=== PATIENT | male | born 1940 | race Two or more races ===

== ENCOUNTER 2024-09-03 09:59 | Inpatient (IN) | payer MEDICARE, MEDICAID, SELFPAY ==
[2024-09-03] VITALS (8 sets, daily range): BP systolic 128–144; BP diastolic 68–86; PULSE 102–127; RESP 16–20; TEMP 36.5–37.2; O2SAT 94–97; BMI 19.8; BMI 19.2
--- NOTE | 2024-09-03 10:29 | XR_ITS ---
Examination: Abdomen sonogram, Limited Date and time of exam: September 03, 2024 1039 hours INDICATIONS: Vomiting beginning one week ago, diagnosis lung cancer 2023 Technique: Real-time sinclair scale transabdominal sonographic images of the upper abdomen obtained. Findings: Multiple gallstones Gallbladder wall 0.3 cm Common bile duct 0.6 cm no stones Pancreatic head 1.9 cm Liver 13.5 cm irregular contour no focal liver lesions Normal hepatopedal portal venous flow Patent IVC Infrarenal abdominal aortic aneurysm transverse dimension 3.9 cm sagittal dimension 3.3 cm IMPRESSION: Cholelithiasis, negative for cholecystitis Mild infrarenal abdominal aortic aneurysm
--- NOTE | 2024-09-03 10:30 | PD.EDRME ---
Rapid Medical Screening Exam [facility] Arrival date/time: 09/03/24 09:59 84-year-old male with a history of lung cancer presents to the emergency room with a chief complaint of 7 out of 10 epigastric pain that radiates to the right upper quadrant, nausea, vomiting, 2 episodes of diarrhea yesterday. Patient states his symptoms have been going on for the last 3 weeks but have progressively gotten worse the last 4 days. I have greeted and performed a focused initial assessment of this patient. A comprehensive ED assessment and evaluation of the patient, analysis of all test results, and completion of the medical decision making process will be conducted by additional ED providers. Chief Complaint: Flu Like Symptoms Time Seen by Provider: 09/03/24 10:19 Vital signs: Vital Signs Temperature 97.8 F 09/03/24 10:18 Pulse Rate 127 H 09/03/24 10:18 Respiratory Rate 20 09/03/24 10:18 Blood Pressure 128/68 09/03/24 10:18 Pulse Oximetry (%) 97 09/03/24 10:18 Oxygen Delivery Method Room Air 09/03/24 10:18 Vital signs reviewed by provider: Yes
[2024-09-03 10:41] LABS: Basophils % (Auto) 0 % (0-2.5); Eosinophils # (Auto) 0.1 Thou/mm3 (0.0-0.5); Eosinophils % (Auto) 1 % (0-10); Hematocrit 36.2 % (41.0-53.0); Hemoglobin 11.9 g/dL (13.5-16.0); Immature Granulocytes % (Auto) 1 % (0-0); Immature Granulocytes Auto 0.07 Thou/mm3 (0.00-0.00); Lymphocytes # (Auto) 0.6 Thou/mm3 (1.0-4.8); Lymphocytes % (Auto) 5 % (10-50); Mean Corpuscular HGB Conc 32.9 g/dl (31.0-37.0); Mean Corpuscular Hemoglobin 27.6 pg (25.0-35.0); Mean Corpuscular Volume 84 fL (80-100); Monocytes # (Auto) 0.6 Thou/mm3 (0.0-0.8); Monocytes % (Auto) 5 % (0-12); Neutrophils % (Auto) 89 % (37-80); Nucleated Red Blood Cell % 0 /100 WBC (0); Platelet Count 325 Thou/mm3 (140-440); RDW Standard Deviation 41.9 fL (35.1-43.9); Red Blood Count 4.31 Miln/mm3 (4.50-5.90); White Blood Count 11.3 Thou/mm3 (3.8-10.6)
[2024-09-03] MEDS: MG HYD/AL HYD/SIME (Maalox Reg) SUSP 30 ML UDC PO (11:15)
[2024-09-03 11:20] LABS: Alanine Aminotransferase 7 U/L (10-49); Albumin, Serum 4.1 gm/dL (3.4-4.8); Alkaline Phosphatase 107 U/L (46-116); Anion Gap 9 (7-16); Aspartate Amino Transferase 15 U/L (0-34); BUN/Creatinine Ratio 21 Ratio (12-20); Bilirubin,Total 0.4 mg/dL (0.3-1.2); Blood Urea Nitrogen 19 mg/dL (9-23); Calcium 9.4 mg/dL (8.3-10.6); Calcium (Corrected) 9.4 mg/dL (8.5-10.1); Carbon Dioxide 30.4 mMol/L (20.0-31.0); Chloride 93 mMol/L (98-107); Creatinine (Component) 0.9 mg/dL (0.6-1.3); Estimated Creatinine Clearance 61.4 mL/min (>60); Glucose 133 mg/dL (74-106); Lipase 35 U/L (12-53); Osmolality,Calculated 268 (275-295); Potassium 3.9 mMol/L (3.4-5.1); Sodium 132 mMol/L (136-145); Total Protein 8.1 gm/dL (5.7-8.2); eGFR > 60 See Note
[2024-09-03 11:55] LABS: Collection Type, Urine Clean Catch
[2024-09-03 12:01] LABS: Bilirubin,Urine 1+ (Negative); Blood,Urine Negative (Negative); Color,Urine Yellow (Lt Yel-Yel); Glucose, Urine Negative (Negative); Hyaline Casts,Urine < 1 /hpf (0-1); Ketones,Urine Negative (Negative); Leukocyte Esterase,Urine Negative (Negative); Nitrite,Urine Negative (Negative); Protein,Urine 1+ (Neg - Trace); RBC,Urine 5 /hpf (0-3); Specific Gravity,Urine 1.037 (1.001-1.035); Squamous Epithelial Cell,Urine < 1 /hpf (0-5); WBC,Urine 2 /hpf (0-5)
[2024-09-03 12:04] LABS: Clarity,Urine Hazy (Clear/Hazy)
--- NOTE | 2024-09-03 12:15 | PC.NURSE ---
IN TO ASSESS PT. PT WITH C/O UPPER ABD PAIN, DIARRHEA, AND SPITTING UP A LOT. PER DAUGHTER PT WENT TO CLINIC A FEW WEEKS AGO WAS DX WITH GASTRITIS AND GIVEN ABX. THEN WENT TO F/UP FRIDAY BUT SYMPTOMS ARE NOT IMPROVING. PT WITHOUT FURTHER COMPLAINTS AT THIS TIME, ORDERS RECEIVED AND INITIATED. CALL LIGHT PLACED WITHIN REACH. PLAN OF CARE ONGOING.
--- NOTE | 2024-09-03 12:45 | PD.EDADULT ---
ED General RME/HPI General Chief complaint: Flu Like Symptoms Stated complaint: Loose stools and vomiting Time Seen by Provider: 09/03/24 10:19 Arrival date/time: 09/03/24 09:59 RME / HPI RME / HPI narrative: 09/03/24 09:59 84-year-old male with a history of lung cancer presents to the emergency room with a chief complaint of 7 out of 10 epigastric pain that radiates to the right upper quadrant, nausea, vomiting, 2 episodes of diarrhea yesterday. Patient states his symptoms have been going on for the last 3 weeks but have progressively gotten worse the last 4 days. I have greeted and performed a focused initial assessment of this patient. A comprehensive ED assessment and evaluation of the patient, analysis of all test results, and completion of the medical decision making process will be conducted by additional ED providers. Related Data Previous Rx's ?Medication ?Instructions ?Recorded Hydrocodone/Acetaminophen * (NORCO 1 tab PO Q4H PRN PAIN #20 tabs 10/28/ 5/325 *) Allergies Allergy/AdvReac Type Severity Reaction Status Date / Time No Known Allergies Allergy Verified 09/03/24 10:06 Course Orders Category Date Time Status gall bladder Stat Exams 09/03/24 10:29 Completed CBC Stat Lab 09/03/24 10:33 Completed CMP [Comprehensive Metabolic Panel] Stat Lab 09/03/24 10:33 Completed Lipase Stat Lab 09/03/24 10:33 Completed UA [Urinalysis] Stat Lab 09/03/24 11:40 Completed Urine Culture Stat Lab 09/03/24 11:40 Received mg Hyd/Al Hyd/Dave Susp [Maalox Susp] Med 09/03/24 10:29 Discontinued 30 ml PO X1 ONE Vital Signs Vital signs: Vital Signs Temperature 97.8 F 09/03/24 10:18 Pulse Rate 127 H 09/03/24 10:18 Respiratory Rate 20 09/03/24 10:18 Blood Pressure 128/68 09/03/24 10:18 Pulse Oximetry (%) 97 09/03/24 10:18 Oxygen Delivery Method Room Air 09/03/24 10:18 MDM Medications Medication administrations:: Medication Administration History Discontinued Medications Al Hydrox/Mg Hydrox/Simethicone (Mg Hyd/Al Hyd/Dave (Maalox Reg) Susp 30 Ml Udc) 30 ml PO X1 ONE Stop: 04/04/25 10:30 Last Admin: 09/03/24 11:15 Dose: 30 ml Documented By: TREVA Medical Decision Making Lab Data 09/03/24 10:33 09/03/24 10:33 Labs: Lab Results 09/03/24 09/03/24 Range/Units 10:33 11:40 WBC 11.3 H (3.8-10.6) Thou/mm3 RBC 4.31 L (4.50-5.90) Miln/mm3 Hgb 11.9 L (13.5-16.0) g/dL Hct 36.2 L (41.0-53.0) % MCV 84 (80-100) fL MCH 27.6 (25.0-35.0) pg MCHC 32.9 (31.0-37.0) g/dl RDW Std Deviation 41.9 (35.1-43.9) fL Plt Count 325 (140-440) Thou/mm3 Neut % (Auto) 89 H (37-80) % Lymph % (Auto) 5 L (10-50) % [place] % (Auto) 5 (0-12) % Eos % (Auto) 1 (0-10) % Baso % (Auto) 0 (0-2.5) % Neut # (Auto) 10.0 H (1.8-7.7) Thou/mm3 Lymph # (Auto) 0.6 L (1.0-4.8) Thou/mm3 [place] # (Auto) 0.6 (0.0-0.8) Thou/mm3 Eos # (Auto) 0.1 (0.0-0.5) Thou/mm3 Baso # (Auto) 0.0 (0.0-0.2) Thou/mm3 Immature Gran # (Auto) 0.07 H (0.00-0.00) Thou/mm3 Absolute Nucleated RBC 0.00 (0.00-0.00) Thou/mm3 Immature Gran % 1 H (0-0) % Nucleated RBC % 0 (0) /100 WBC Sodium 132 L (136-145) mMol/L Potassium 3.9 (3.4-5.1) mMol/L Chloride 93 L (98-107) mMol/L Carbon Dioxide 30.4 (20.0-31.0) mMol/L Anion Gap 9 (7-16) BUN 19 (9-23) mg/dL Creatinine 0.9 (0.6-1.3) mg/dL Estim Creat Clear Calc 61.4 (>60) mL/min eGFR > 60 (60 - ) See Note BUN/Creatinine Ratio 21 H (12-20) Ratio Glucose 133 H (74-106) mg/dL Calculated Osmolality 268 L (275-295) Calcium 9.4 (8.3-10.6) mg/dL Corrected Calcium 9.4 (8.5-10.1) mg/dL Total Bilirubin 0.4 (0.3-1.2) mg/dL AST 15 (0-34) U/L ALT 7 L (10-49) U/L Alkaline Phosphatase 107 (46-116) U/L Total Protein 8.1 (5.7-8.2) gm/dL Albumin 4.1 (3.4-4.8) gm/dL Globulin 4.0 H (2.3-3.5) gm/dL Albumin/Globulin Ratio 1.0 L (1.2-2.2) Lipase 35 (12-53) U/L Ur Collection Type Clean Catch Urine Color Yellow (Lt Yel-Yel) Urine Clarity Hazy (Clear/Hazy) Urine pH 7.0 (5.0-7.0) Ur Specific [place] 1.037 H (1.001-1.035) Urine Protein 1+ A (Neg - Trace) Urine Glucose (UA) Negative (Negative) Urine Ketones Negative (Negative) Urine Blood Negative (Negative) Urine Nitrite Negative (Negative) Urine Bilirubin 1+ A (Negative) Urine Urobilinogen (Auto) 6.0 (0.0-1.0) mg/dL Ur Leukocyte Esterase Negative (Negative) Urine RBC 5 H (0-3) /hpf Urine WBC 2 (0-5) /hpf Ur Squamous Epith Cells < 1 (0-5) /hpf Urine Bacteria None (None) Hyaline Casts < 1 (0-1) /hpf Discharge Plan Prescriptions/Referrals Prescriptions/Med Rec: No Action Hydrocodone/Acetaminophen * (NORCO 5/325 *) 1 TAB tablet 1 tab PO Q4H PRN (Reason: PAIN) Qty: 20 0RF Rx Instructions: FOR PAIN Referrals: Minor Mcdowell MD [Primary Care Provider] - In 1 week Patient/Caregiver Discharge Instructions Print Language: Japanese
--- NOTE | 2024-09-03 13:03 | PD.EDADULT ---
ED General RME/HPI General Chief complaint: Flu Like Symptoms Stated complaint: Loose stools and vomiting Time Seen by Provider: 09/03/24 10:19 Arrival date/time: 09/03/24 09:59 RME / HPI RME / HPI narrative: 09/03/24 09:59 84-year-old male with a history of lung cancer presents to the emergency room with a chief complaint of 7 out of 10 epigastric pain that radiates to the right upper quadrant, nausea, vomiting, 2 episodes of diarrhea yesterday. Patient states his symptoms have been going on for the last 3 weeks but have progressively gotten worse the last 4 days. I have greeted and performed a focused initial assessment of this patient. A comprehensive ED assessment and evaluation of the patient, analysis of all test results, and completion of the medical decision making process will be conducted by additional ED providers. DR. DIANE JACKSON ED EVALUATION: 84 year old male with past medical history significant for lung cancer, former smoker, and gastritis presents to the Emergency Department accompanied by his daughter with complaint of a lot of gas He mentioned that he had diarrhea 2 days ago, he had x5 episodes that day and then that was it no diarrhea since. Per daughter, patient has a lot of nausea and states he spits stuff, like not a lot of vomit but more like spitting. Per daughter, patient had some little stools on his diaper today; per daughter, usually he does not wear a diaper but they put one since he had diarrhea 2 days ago. Patient's main complaint is being gassy after eating, he states he does pass gas but the gas is uncomfortable after every single time he eats. Patient denies any abdominal pain. Patient states his bowel movements yellowish and denies any black stools. Patient does have a chronic dry cough, but no more than the usual. Patient takes prednisone and omeprazole. He also mentions that he was on antibiotics 2 weeks ago. PCP: Dr. Mcdowell at [facility]. Related Data Home Medications ?Medication ?Instructions ?Recorded ?Confirmed omeprazole 20 mg capsule,delayed mg 09/03/24 release prednisone 20 mg tablet mg 09/03/24 promethazine-DM 6.25 mg-15 mg/5 mL ml 09/03/24 oral syrup Previous Rx's ?Medication ?Instructions ?Recorded Hydrocodone/Acetaminophen * (NORCO 1 tab PO Q4H PRN PAIN #20 tabs 10/29/15 5/325 *) Allergies Allergy/AdvReac Type Severity Reaction Status Date / Time No Known Allergies Allergy Verified 09/03/24 10:06 Review of Systems Review of Systems Systems Reviewed: All systems reviewed, normal except as documented Past Medical History Past Medical History RESPIRATORY: Positive Pneumonia (current) MUSCULOSKELETAL: Positive Fractures ENT: Positive Retinal Detachment OTHER HISTORY: Positive Radiation Therapy, Cancer and Lung Cancer Family History FAMILY HISTORY: Positive Family Cancer Surgical History SURGICAL: Positive Amputation Social History SMOKING STATUS: Former smoker SECOND HAND EXPOSURE: No SUBSTANCE USE: does not use ALCOHOL: Never ED Exam Narrative Physical exam: GENERAL APPEARANCE: AxOx4, generally well-appearing, no acute distress. HEENT: NC, AT. MMM. EOMI, clear conjunctiva, oropharynx clear. NECK: Supple without lymphadenopathy. No stiffness or restricted ROM. HEART: Normal rate and regular rhythm, normal S1/S1, no m/r/g LUNGS: CTAB, moving air well. No crackles or wheezes are heard. ABDOMEN: Soft, nontender, nondistended with good bowel sounds heard. BACK: No midline C/T/L spine pain or deformity, No CVAT, no obvious deformity. EXTREMITIES: Without cyanosis, clubbing or edema. MUSCULOSKELETAL: FROM of all major joints, no chest tenderness NEUROLOGICAL: Grossly nonfocal. Alert and oriented, moving all 4 extremities. CN not formally tested but appear grossly intact. Observed to ambulate with normal gait. Skin: Warm and dry without any rash. Course Quality Measures none Orders Category Date Time Status CT Screening NOW Care 09/03/24 13:[address] abdomen pelvis w con Stat Exams 09/03/24 13:05 Completed US gall bladder Stat Exams 09/03/24 10:29 Completed CBC Stat Lab 09/03/24 10:33 Completed CMP [Comprehensive Metabolic Panel] Stat Lab 09/03/24 10:33 Completed Lipase Stat Lab 09/03/24 10:33 Completed UA [Urinalysis] Stat Lab 09/03/24 11:40 Completed Urine Culture Stat Lab 09/03/24 11:40 Received mg Hyd/Al Hyd/Dave Susp [Maalox Susp] Med 09/03/24 10:29 Discontinued 30 ml PO X1 ONE Vital Signs Vital signs: Vital Signs Temperature 97.8 F 09/03/24 10:18 Pulse Rate 127 H 09/03/24 10:18 Respiratory Rate 20 09/03/24 10:18 Blood Pressure 128/68 09/03/24 10:18 Pulse Oximetry (%) 97 09/03/24 10:18 Oxygen Delivery Method Room Air 09/03/24 10:18 [facility] Patient data External records reviewed:: [facility] previous records (Reviewed last ED visit dated 11/20/23, discharged with the following: History of COPD) Clinical information provided by:: patient and family (daughter) Social determinants that could affect healthcare access:: none Patient has the following chronic illnesses:: Lung cancer, former smoker, and gastritis How is presenting disease/condition affected by chronic disease/condition?: exacerbated by Evaluation data The following diagnostics were reviewed and interpreted by me:: lab results and radiology exam(s) Lab and/or radiology exams considered but not ordered:: none Interpretation Summary: Procedure(s): US gall bladder Accession Number(s): [id number] cc: Marko Lopez; Minor Mcdowell MD; Jason Siegel MD~ Examination: Abdomen sonogram, Limited Date and time of exam: September 03, 2024 1039 hours INDICATIONS: Vomiting beginning one week ago, diagnosis lung cancer 2023 Technique: Real-time sinclair scale transabdominal sonographic images of the upper abdomen obtained. Findings: Multiple gallstones Gallbladder wall 0.3 cm Common bile duct 0.6 cm no stones Pancreatic head 1.9 cm Liver 13.5 cm irregular contour no focal liver lesions Normal hepatopedal portal venous flow Patent IVC Infrarenal abdominal aortic aneurysm transverse dimension 3.9 cm sagittal dimension 3.3 cm IMPRESSION: Cholelithiasis, negative for cholecystitis Mild infrarenal abdominal aortic aneurysm Dictated By: Jason Siegel MD Procedure(s): CT abdomen pelvis w con Accession Number(s): [id number] cc: Minor Mcdowell MD; Siddhartha Brower MD; Jason Siegel MD~ Examination: CT abdomen with intravenous contrast CT pelvis with intravenous contrast 2-D coronal reconstructions 2-D sagittal reconstructions Date and time of exam:September 03, 2024 1525 hours Comparison July 15, 2023 INDICATIONS: Diagnosis lung cancer, right upper abdominal pain nausea vomiting beginning yesterday. CTDI: vol (mGy) 6.33 DLP: (mGycm) 405 Technique: Multiple axial sections of the abdomen and pelvis have been obtained. 64 slice high-resolution scanner used. 3 mm axial sections have been obtained, post intravenous injection 60 cc [id number] 2-D sagittal, coronal reconstructions obtained. Low dose protocols were performed. One or more of the following dose reduction techniques were used; automated exposure control, adjustment of the mA and/or KV according to patient size, use of iterative reconstruction technique. Findings: Decrease in left pleural fluid compared to the July 15, 2023 exam, which currently appears loculated, mild to moderate Pneumonia left base No focal liver lesions Tiny gallstone No pancreatic mass Markedly fluid distended air distended small bowel loops Abdominal aortic calcification AP dimension infrarenal aorta 26 mm No hydronephrosis Normal appendix Colonic diverticulosis, no diverticulitis Transverse prostate dimension 4.3 cm Urinary bladder intact Severe osteopenia, again noted dense sclerosis involving S1, L4 L1, T11, T9 IMPRESSION: High-grade mechanical small bowel obstruction pattern, consider Gastrografin small bowel series follow-up Osteoblastic metastatic disease, please see nuclear medicine bone scan September 12, 2023 Dictated By: Jason Siegel MD Medications Medications considered but not ordered:: none Medication administrations:: Medication Administration History Acetaminophen (Acetaminophen Supp 650 Mg Supp) 650 mg PA Q6HR PRN PRN Reason: Fever > 100.4 or pain 1-3 Stop: 10/03/24 17:24 Enoxaparin Sodium (Enoxaparin Sod Inj 40 Mg/0.4 Ml Syringe) 40 mg SC QDAY DANYELLE Stop: 09/18/24 08:59 Last Admin: 09/04/24 08:17 Dose: 40 mg Documented By: [email or web address] Morphine Sulfate (Morphine Sulf Inj 10 Mg/Ml Vial) 2 mg IVP Q4HR PRN PRN Reason: Moderate Pain 4-6 Stop: 09/08/24 17:28 Ondansetron HCl (Ondansetron Inj 2 Mg/Ml Inj 2 Ml) 4 mg IV Q6HR PRN; Protocol PRN Reason: NAUSEA OR VOMITING Stop: 10/03/24 17:27 Discontinued Medications Al Hydrox/Mg Hydrox/Simethicone (Mg Hyd/Al Hyd/Dave (Maalox Reg) Susp 30 Ml Udc) 30 ml PO X1 ONE Stop: 09/03/24 10:30 Last Admin: 09/03/24 11:15 Dose: 30 ml Documented By: MP Sodium Chloride (Ns) 1,000 mls @ 70 mls/hr IV .[id number] ONE Stop: 09/04/24 10:16 Last Admin: 09/03/24 20:20 Dose: 70 mls/hr Documented By: HV see above Consultations Consultation(s) initiated? (list below): Yes Consultation #1 (Physician, Specialty, Details): Discussed test HPI, PMHx, lab, radiology results and/or management with resident Dr. House working with hospitalist. Will admit for further evaluation and management. Accepts patient for admission. Time: 16:20 Diagnosis Differential Diagnosis ED Complaint MDM: IBS, celiac disease, dehydration Most likely diagnosis given after review of the tests above:: Bowel obstruction Admission Indicated Admission indicated?: indicated Explain why admission is indicated or not indicated:: Diagnoses meet admission criteria. Admission Request Was there a request for admission?: Yes Admission Attestation Admission request attestation: Discussed case with [] from Hospitalist service regarding admission. Discussed patients ED course, exam findings, labs, and radiology results. The Hospitalist [agrees,declines] to accept the patient for admission. Disposition Plan Disposition Plan: Admit Medical Decision Making MDM Narrative MDM Narrative: I, Annabel Barakat, am scribing for and in the presence of Dr. Brower. Differential Diagnosis Differential Diagnosis: IBS, celiac disease, dehydration Lab Data 09/04/24 04:14 09/04/24 04:14 Labs: Lab Results 09/03/24 09/03/24 Range/Units 10:33 11:40 WBC 11.3 H (3.8-10.6) Thou/mm3 RBC 4.31 L (4.50-5.90) Miln/mm3 Hgb 11.9 L (13.5-16.0) g/dL Hct 36.2 L (41.0-53.0) % MCV 84 (80-100) fL MCH 27.6 (25.0-35.0) pg MCHC 32.9 (31.0-37.0) g/dl RDW Std Deviation 41.9 (35.1-43.9) fL Plt Count 325 (140-440) Thou/mm3 Neut % (Auto) 89 H (37-80) % Lymph % (Auto) 5 L (10-50) % [place] % (Auto) 5 (0-12) % Eos % (Auto) 1 (0-10) % Baso % (Auto) 0 (0-2.5) % Neut # (Auto) 10.0 H (1.8-7.7) Thou/mm3 Lymph # (Auto) 0.6 L (1.0-4.8) Thou/mm3 [place] # (Auto) 0.6 (0.0-0.8) Thou/mm3 Eos # (Auto) 0.1 (0.0-0.5) Thou/mm3 Baso # (Auto) 0.0 (0.0-0.2) Thou/mm3 Immature Gran # (Auto) 0.07 H (0.00-0.00) Thou/mm3 Absolute Nucleated RBC 0.00 (0.00-0.00) Thou/mm3 Immature Gran % 1 H (0-0) % Nucleated RBC % 0 (0) /100 WBC Sodium 132 L (136-145) mMol/L Potassium 3.9 (3.4-5.1) mMol/L Chloride 93 L (98-107) mMol/L Carbon Dioxide 30.4 (20.0-31.0) mMol/L Anion Gap 9 (7-16) BUN 19 (9-23) mg/dL Creatinine 0.9 (0.6-1.3) mg/dL Estim Creat Clear Calc 61.4 (>60) mL/min eGFR > 60 (60 - ) See Note BUN/Creatinine Ratio 21 H (12-20) Ratio Glucose 133 H (74-106) mg/dL Calculated Osmolality 268 L (275-295) Calcium 9.4 (8.3-10.6) mg/dL Corrected Calcium 9.4 (8.5-10.1) mg/dL Total Bilirubin 0.4 (0.3-1.2) mg/dL AST 15 (0-34) U/L ALT 7 L (10-49) U/L Alkaline Phosphatase 107 (46-116) U/L Total Protein 8.1 (5.7-8.2) gm/dL Albumin 4.1 (3.4-4.8) gm/dL Globulin 4.0 H (2.3-3.5) gm/dL Albumin/Globulin Ratio 1.0 L (1.2-2.2) Lipase 35 (12-53) U/L Ur Collection Type Clean Catch Urine Color Yellow (Lt Yel-Yel) Urine Clarity Hazy (Clear/Hazy) Urine pH 7.0 (5.0-7.0) Ur Specific [place] 1.037 H (1.001-1.035) Urine Protein 1+ A (Neg - Trace) Urine Glucose (UA) Negative (Negative) Urine Ketones Negative (Negative) Urine Blood Negative (Negative) Urine Nitrite Negative (Negative) Urine Bilirubin 1+ A (Negative) Urine Urobilinogen (Auto) 6.0 (0.0-1.0) mg/dL Ur Leukocyte Esterase Negative (Negative) Urine RBC 5 H (0-3) /hpf Urine WBC 2 (0-5) /hpf Ur Squamous Epith Cells < 1 (0-5) /hpf Urine Bacteria None (None) Hyaline Casts < 1 (0-1) /hpf Discharge Plan Plan Patient Disposition: Admit Acute Care w/in Hospital Problem List Clinical Impression: Bowel obstruction
--- NOTE | 2024-09-03 17:51 | XR_ITS ---
Examination: Small bowel series AP abdomen 4 views Exam date and time: September 03, 2024 1855 hours INDICATIONS: Abdominal pain and distention history TECHNIQUE: [employer] Truck [employer] AP supine abdomen Patient received 120 cc Gastrografin with AP abdomen films immediate, 1 hour, 2 hours Contrast in distended small bowel loops but contrast is present in the colon at 2 hours IMPRESSION: Incomplete small bowel obstruction No additional delayed films are needed
--- NOTE | 2024-09-03 18:38 | PD.RESHP ---
Documentation for date of: 09/03/24 Senior resident attestation: Patient is an 84-year-old male past medical history of metastatic lung cancer, stage IV, received radiotherapy for metastatic lesion to spine, was on hospice, followed by radiation oncologist Dr. Hanson, presented to ER today complaining of abdominal pain distention, multiple episodes of vomiting, episodes of diarrhea yesterday, no solid bowel movement for the last 3 days. Denies passing gas since yesterday. On examination, bowel sounds are hyperactive, patient feels nauseous, abdomen is soft nontender and distended. CT abdominal findings concerning for distended gut loops and distended stomach with fluid accommodation, ordered nasogastric tube for decompression and Gastrografin small bowel series is ordered . May clamp NG tube for Gastrografin small bowel series once stomach is decompressed. Likely subacute intestinal suction given active bowel sounds. #Small bowel obstruction, acute versus subacute Patient evaluated and examined at the bedside, plan of care discussed with rest of the team including my attending physician, except as noted. 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 Patient states that for past several days he has been feeling gassy , worsening abdominal pain associated with eating, mild sowed's of bilious vomiting. Patient also had 3 days of diarrhea, followed by no bowel movements yesterday. Patient has not passed flatus for at least 1 day. Patient received short course of radiation therapy 1 year ago when diagnosed with colon cancer, transitioned to hospice. Still follows Dr. Hanson but does not currently get active treatment. Patient denies fevers, chills, chest pain, shortness of breath, weakness, fatigue. ED COURSE: Lab significant for: WBCs 11.3, hemoglobin 11.9, sodium 132. CT A/P showing high-grade SBO and osteoblastic lesions. PMH: Stage IV lung cancer, COPD PSH: None SH: Quit smoking 1 year ago, long history of smoking prior. Denies drinking or illicit drug use. Allergies:?NKDA Medications: Alprazolam, prednisone, promethazine, lorazepam Review of Systems Review of Systems Systems Reviewed: All systems reviewed, normal except as documented Past Medical History Past Medical History Comments PMH COMMENT: PMH: Stage IV lung cancer, COPD PSH: None SH: Quit smoking 1 year ago, long history of smoking prior. Denies drinking or illicit drug use. Allergies:?NKDA Medications: Alprazolam, prednisone, promethazine, lorazepam Exam Vital Signs Temp Pulse Resp BP Pulse Ox O2 Del Method 98.4 F 108 H 18 144/86 H 95 Room Air 09/03/24 12:09/03/24 12:09/03/24 12:09/03/24 12:09/03/24 12:09/03/24 12:01 Narrative Exam PE: Gen: Well-developed and well-nourished. HEENT: NCAT, PERRLA, EOMI, MMM, anicteric conjunctivae. CVS: normal S1 and S2. RRR. No M/R/G. Resp: CTA B/L. No rhonchi, rales, crackles or wheezing. Abd: soft, non-tender, non-distended. MSK: Good ROM in BUE & BLE. No edema or rash. Neuro: CN II-XII grossly intact. Strength 5/5 in BUE & BLE. Alert and oriented x3. Psych: appropriate mood and affect. Results: Labs 09/03/24 10:33 09/03/24 10:33 Labs: Short CBC 09/03/24 Range/Units 10:33 WBC 11.3 H (3.8-10.6) Thou/mm3 Hgb 11.9 L (13.5-16.0) g/dL Hct 36.2 L (41.0-53.0) % Plt Count 325 (140-440) Thou/mm3 BMP 09/03/24 10:33 Sodium 132 L Potassium 3.9 Chloride 93 L Carbon Dioxide 30.4 BUN 19 Creatinine 0.9 Glucose 133 H Calcium 9.4 Liver Function 09/03/24 Range/Units 10:33 Total Bilirubin 0.4 (0.3-1.2) mg/dL AST 15 (0-34) U/L ALT 7 L (10-49) U/L Alkaline Phosphatase 107 (46-116) U/L Albumin 4.1 (3.4-4.8) gm/dL Urine 09/03/24 Range/Units 11:40 Urine Color Yellow (Lt Yel-Yel) Urine Clarity Hazy (Clear/Hazy) Urine pH 7.0 (5.0-7.0) Ur Specific [place] 1.037 H (1.001-1.035) Urine Protein 1+ A (Neg - Trace) Urine Glucose (UA) Negative (Negative) Quality Measures Quality Measures VTE prophylaxis Advance care planning discussed with:: patient and child Medications Home Medications and Allergies Allergies Allergy/AdvReac Type Severity Reaction Status Date / Time No Known Allergies Allergy Verified 09/03/24 10:06 Visit Medications Acetaminophen (Acetaminophen Supp 650 Mg Supp) 650 mg SD Q6HR PRN PRN Reason: Fever > 100.4 or pain 1-3 Stop: 10/03/24 17:24 Enoxaparin Sodium (Enoxaparin Sod Inj 40 Mg/0.4 Ml Syringe) 40 mg SC QDAY DANYELLE Stop: 09/18/24 08:59 Morphine Sulfate (Morphine Sulf Inj 10 Mg/Ml Vial) 2 mg IVP Q4HR PRN PRN Reason: Moderate Pain 4-6 Stop: 09/08/24 17:28 Ondansetron HCl (Ondansetron Inj 2 Mg/Ml Inj 2 Ml) 4 mg IV Q6HR PRN; Protocol PRN Reason: NAUSEA OR VOMITING Stop: 10/03/24 17:27 Discontinued Medications Al Hydrox/Mg Hydrox/Simethicone (Mg Hyd/Al Hyd/Dave (Maalox Reg) Susp 30 Ml Udc) 30 ml PO X1 ONE Stop: 09/03/24 10:30 Last Admin: 09/03/24 11:15 Dose: 30 ml Assessment & Plan Plan 84 y/o M with PMHx significant for 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 #SBO Patient presented with chief complaint of abdominal pain and feeling gassy . Has not passed flatus for at least [address] showed high-grade SBO. -NG tube to low intermittent suction -Small bowel follow-through when NG tube output decreases -N.p.o. -Zofran 4 mg every 6 hours as needed for nausea or vomiting #Stage IV lung cancer, no active treatment #COPD Patient has history as stated. Patient on room air at baseline, saturates well. Patient diagnosed with lung cancer 1 year ago, received short course of radiation therapy before transitioning to hospice. Patient still follows with Dr. Hanson but does not receive active treatment. -Consider resuming home meds when no longer n.p.o. DVT prophylaxis: Lovenox GI prophylaxis: None Diet: N.p.o. Lines: Peripheral IV, NG tube Code status: Full code Plan of care discussed with senior resident Dr. Camara PGY?[address] Guthrie. Adithya Keys MD PGY?1 Attending Provider Attestation/Addendum I have discussed and was present for the essential components of the history, physical examination, diagnosis, and treatment plan with the resident. I agree with the patient's care as documented by the resident and amended herein by me. Raghu Guthrie, DO. Patient seen and evaluated in the ED. In short, 84-year-old male with significant past medical history of stage IV lung cancer, not on any treatment, COPD apparently on hospice care, presented to the ED with a chief complaint of abdominal pain with associated vomiting. Patient subsequently admitted for SBO In the ED, patient was tachycardic with a pulse rate initially recorded as 127 however did come down to 102. Patient afebrile, on room air, SpO2 94%. Significant labs include a slightly elevated WBC 11.3, hemoglobin 11.9, sodium 132. A gallbladder ultrasound was performed demonstrating cholelithiasis however negative for cholecystitis and a mild infrarenal abdominal aortic aneurysm. CT abdomen and pelvis was also performed with contrast demonstrating a high-grade mechanical small bowel obstruction. At this time, an NG tube will be inserted, the patient will be placed on suction, small bowel series ordered. Will consider surgery consult pending small bowel series and improvement. Although this document has been carefully reviewed, there may still be some phonetic and other typographical errors. These errors are purely grammatical due to imperfections in the software program and should not be construed in any way to compromise the substance of the patient's medical care during this visit.
--- NOTE | 2024-09-03 19:00 | PC.NURSE ---
x-ray at bedside to begin small bowel series.
--- NOTE | 2024-09-03 19:28 | PC.NURSE ---
REPORT CALLED TO SOTO RN AT THIS TIME.
[2024-09-03] MEDS: SODIUM CHLORIDE 0.9% 1000 ML 1,000 ML 70 ML IV (20:20)
[2024-09-04] VITALS: BP 122/72; PULSE 104; RESP 22; TEMP 37.1; O2SAT 93
[2024-09-04 04:00] VITALS: BP 124/72; PULSE 101; PULSE 62; RESP 18; TEMP 36.7; O2SAT 93
[2024-09-04 05:06] LABS: Basophils % (Auto) 0 % (0-2.5); Eosinophils # (Auto) 0.1 Thou/mm3 (0.0-0.5); Eosinophils % (Auto) 1 % (0-10); Hematocrit 29.3 % (41.0-53.0); Hemoglobin 9.8 g/dL (13.5-16.0); Immature Granulocytes % (Auto) 1 % (0-0); Immature Granulocytes Auto 0.07 Thou/mm3 (0.00-0.00); Lymphocytes # (Auto) 0.6 Thou/mm3 (1.0-4.8); Lymphocytes % (Auto) 7 % (10-50); Mean Corpuscular HGB Conc 33.4 g/dl (31.0-37.0); Mean Corpuscular Hemoglobin 27.9 pg (25.0-35.0); Mean Corpuscular Volume 84 fL (80-100); Monocytes # (Auto) 0.6 Thou/mm3 (0.0-0.8); Monocytes % (Auto) 7 % (0-12); Neutrophils # (Auto) 7.1 Thou/mm3 (1.8-7.7); Neutrophils % (Auto) 84 % (37-80); Nucleated Red Blood Cell % 0 /100 WBC (0); Platelet Count 256 Thou/mm3 (140-440); RDW Standard Deviation 41.5 fL (35.1-43.9); Red Blood Count 3.51 Miln/mm3 (4.50-5.90); White Blood Count 8.5 Thou/mm3 (3.8-10.6)
[2024-09-04 05:39] LABS: Alanine Aminotransferase < 7 U/L (10-49); Albumin, Serum 3.4 gm/dL (3.4-4.8); Alkaline Phosphatase 90 U/L (46-116); Anion Gap 9 (7-16); Aspartate Amino Transferase 12 U/L (0-34); BUN/Creatinine Ratio 29 Ratio (12-20); Bilirubin,Total 0.4 mg/dL (0.3-1.2); Blood Urea Nitrogen 20 mg/dL (9-23); Calcium (Corrected) 9.5 mg/dL (8.5-10.1); Carbon Dioxide 29.3 mMol/L (20.0-31.0); Chloride 96 mMol/L (98-107); Creatinine (Component) 0.7 mg/dL (0.6-1.3); Estimated Creatinine Clearance 76.7 mL/min (>60); Globulin 3.5 gm/dL (2.3-3.5); Glucose 96 mg/dL (74-106); Magnesium 1.9 mg/dL (1.6-2.6); Osmolality,Calculated 270 (275-295); Phosphorous 3.1 mg/dL (2.4-5.1); Potassium 4.1 mMol/L (3.4-5.1); Sodium 134 mMol/L (136-145); Total Protein 6.9 gm/dL (5.7-8.2); eGFR > 60 See Note
[2024-09-04 07:50] VITALS: BP 143/82; PULSE 104; RESP 17; TEMP 36.6; O2SAT 94
[2024-09-04] MEDS: ENOXAPARIN SOD INJ 40 MG/0.4 ML SYRINGE SC (08:17)
--- NOTE | 2024-09-04 10:56 | PC.SS ---
SS contacted daughter, Luna, over the phone to discuss initial assessment. Daughter confirmed she is the alt medical decision maker for patient. Patient resides with her brother, Ian @ [phone]. [facility] provided all DME. Patient is on 02 at home. Patient admitted for abdominal pain. Patient is open to [facility]. Daughter states patient has been open to [facility] since December 2023. Patient has hx: lung cancer. Patient is under the care of Dr. Hanson. No Cancer Treatment. Patient follows at [facility]. Last appointment was in July. Patient will return home upon discharge. [facility] will need to be notified. transportation: [facility] medical decision maker: DaughterLuna,
[2024-09-04 12:00] VITALS: BP 137/81; PULSE 102; RESP 16; TEMP 36.1; O2SAT 94
--- NOTE | 2024-09-04 12:21 | ESDS_ITS ---
Planned Discharge Date 09/04/24 DS: Providers Provider Date of admission: 09/03/24 17:25 Primary care physician: Minor Mcdowell MD Admitting Provider: Jace Guthrie DO Attending Provider on Admission: Jace Guthrie DO Consults: 09/03/24 20:51 Referral Registered Dietitian Routine Comment: Attending Provider on DC: Melina Prather MD Discharging Provider: Melina Prather MD DS: Diagnosis Problem List Completed Was Problem List Reviewed/Reconciled?: Yes Hospital Course Hospital Course Hospital course: This is an 84-year-old male with a past medical history of stage IV metastatic lung cancer, status post radiation, who was previously on hospice care and followed by Dr. Hanson. The patient was recently discharged from hospice and presented to the emergency department with chief complaints of abdominal pain, distention, multiple episodes of vomiting, and nausea. The patient?s last bowel movement occurred approximately three days ago. Upon presentation, the patient was hemodynamically stable, and lab results were unremarkable. Physical examination revealed hypoactive bowel sounds, a distended and tympanic abdomen. A CT of the abdomen showed distended colonic loops consistent with a high-grade small bowel obstruction . The patient was admitted for further management. An NG tube was placed to decompress the bowel, and the patient underwent a Gastrografin small bowel series. Overnight, the patient had four large bowel movements, after which the NG tube was removed. Upon evaluation today, the patient was comfortably lying in bed and denied any nausea, vomiting, abdominal distention, pain, or any other associated symptoms. The patient was started on a clear liquid diet, which was tolerated well, and the diet was advanced. The patient will be discharged today home with hospice care. The patient?s daughter was at the bedside. All questions and concerns were addressed, and the patient verbalized understanding of the plan. #SBO resolved #Stage IV lung cancer, followed by Dr. Hanson #History of COPD Patient care was discussed with attending physician Dr. Jerri Prather MD PGY-2 Time Spent with Patient Time attestation: Total time spent providing and/or coordinating discharge services: Exam Vital Signs Temp Pulse Resp BP Pulse Ox O2 Del Method 97.9 F 104 H 17 143/82 H 94 L Room Air 09/04/24 07:50 09/04/24 07:50 09/04/24 07:50 09/04/24 07:50 09/04/24 07:50 09/04/24 07:50 Narrative Exam Gen: Well-developed and well-nourished. HEENT: NCAT, PERRLA, EOMI, MMM, anicteric conjunctivae. CVS: normal S1 and S2. RRR. No M/R/G. Resp: CTA B/L. No rhonchi, rales, crackles or wheezing. Abd: soft, non-tender, non-distended. MSK: Good ROM in BUE & BLE. No edema or rash. Neuro: CN II-XII grossly intact. Strength 5/5 in BUE & BLE. Alert and oriented x3. Psych: appropriate mood and affect. Discharge Plan Plan Patient Disposition: Home w/HOSPICE Patient condition on transfer: Stable Care Plan Goals: Continue home medication as prescribed Your [place] prescription is as needed for pain management. Please use it cautiously and avoid overuse, as it may cause constipation. For constipation, Senna has been prescribed. It is a type of laxative that can help relieve constipation. If you develop diarrhea, please discontinue use. Senna is also prescribed as needed. Be sure to follow up with your primary care provider (PCP) outpatient for ongoing care. Follow-up outpatient with PCP in 1 week after discharge Follow-up outpatient with Dr. Hanson. Return to ED if symptoms persist. Prescriptions/Referrals Prescriptions/Med Rec: New senna 8.6 mg capsule 8.6 mg PO QDAY PRN (Reason: constipation) 7 Days Qty: 10 0RF Continued promethazine-DM 6.25-15 mg/5 mL syrup 10 ml PO Q6H PRN (Reason: cough) Patient Comments: TOME 10 MILLILITROS POR LA BOCA GÓMEZ VECES AL ADITHYA CUANDO SEA NECESARIO PARA T OZ POR 10 ZAMARRIPA prednisone 20 mg tablet 20 mg PO Q12H omeprazole 20 mg capsule,delayed release(DR/EC) 40 mg PO BID alprazolam 0.5 mg tablet 0.5 mg PO QDAY lorazepam [Ativan] 1 mg tablet 1 mg PO QID PRN (Reason: anxiety) Held Hydrocodone/Acetaminophen * (NORCO 5/325 *) 1 TAB tablet 1 tab PO Q4H PRN (Reason: PAIN) Qty: 20 0RF Hold Instructions: Resume on 09/11/24. Your pain medication is as needed, try do not take often as it can cause constipation as well. Follow-up with PCP. Rx Instructions: FOR PAIN Referrals: Minor Mcdowell MD [Primary Care Provider] - Patient/Caregiver Discharge Instructions Discharge Activity: activity as tolerated Education Materials: ED Constipation (Adult) Print Language: Ma[place] Stand Alone Forms: [facility] Award Info., Patient Portal Info Letter Discharge Order Discharge Orders: Discharge (Routine); Ordered 09/04/24 Ordered By: Melina Prather Quality Discharge Quality Measures VTE prophylaxis Attestestation Attestation I have discussed and was present for the essential components of the discharge history, physical examination, diagnosis, and discharge treatment plan with the resident. I agree with the patient's discharge care as documented by the resident and amended herein by me. Raghu Guthrie, . The patient understood all discharge instructions, all questions were answered satisfactorily. The patient was instructed to return to the Emergency Department is symptoms worsened or persisted. Patient was stable, afebrile, tolerating p.o. intake and ambulatory at time of discharge back to hospice. Although this document has been carefully reviewed, there may still be some phonetic and other typographical errors. These errors are purely grammatical due to imperfections in the software program and should not be construed in any way to compromise the substance of the patient's medical care during this visit.
--- NOTE | 2024-09-04 14:29 | PC.SS ---
H[employer]iner (SVETLANA) Doris notified that patient was ready for discharge. SW met with patient's daughter, Monique to inquire about transportation services. Per Monique, patient is always transported via private vehicle, no need for transportation.
== END 2024-09-04 14:30 | disposition hospice, home (50) | DRG 389 ==
LOC: SERX 16:28 → SERHOLD 17:34 → S3NX 19:44
PROVIDERS: Nurse Practitioner Family; Admitting Provider Student in an Organized Health Care Education/Training Program; Emergency Provider Emergency Medicine; PCP Family Medicine; Visit Provider Student in an Organized Health Care Education/Training Program
DX: K56.699 Other intestinal obstruction unspecified as to partial versus complete obstruction (principal); C34.90 Malignant neoplasm of unspecified part of unspecified bronchus or lung; J44.9 Chronic obstructive pulmonary disease, unspecified; Z92.3 Personal history of irradiation; Z51.5 Encounter for palliative care
CPT/HCPCS: 36415; 74177; 74250; 76705; 80053; 81001; 83690; 83735; 84100; 85025; 87086; 93225; A4649; J1650; J7030; Q9963; Q9967; A9270

== ENCOUNTER 2024-09-11 19:07 | Inpatient (IN) | payer MEDICARE, MEDICAID, SELFPAY ==
[2024-09-11 19:52] VITALS: BP 110/67; PULSE 136; RESP 19; TEMP 36.5; O2SAT 96; BMI 18.2
--- NOTE | 2024-09-11 19:59 | PD.EDRME ---
Rapid Medical Screening Exam RME Arrival date/time: 09/11/24 19:07 84 yo m present to ED for c/o ongoing n/v for 1 week, recent admission for sbo I have greeted and performed a focused initial assessment of this patient. A comprehensive ED assessment and evaluation of the patient, analysis of all test results, and completion of the medical decision making process will be conducted by additional ED providers. Chief Complaint: Nausea/Vomiting/Diarrhea Time Seen by Provider: 09/11/24 19:56 Vital signs: Vital Signs Temperature 97.7 F 09/11/24 19:52 Pulse Rate 136 H 09/11/24 19:52 Respiratory Rate 19 09/11/24 19:52 Blood Pressure 110/67 09/11/24 19:52 Pulse Oximetry (%) 96 09/11/24 19:52 Oxygen Delivery Method Room Air 09/11/24 19:52
--- NOTE | 2024-09-11 20:00 | XR_ITS ---
Examination: CT abdomen with intravenous contrast CT pelvis with intravenous contrast 2-D coronal reconstructions 2-D sagittal reconstructions Date and time of exam:September 11, 2024 2130 hrs. Indications: Abdominal pain nausea vomiting beginning 21 weeks ago, small bowel obstruction on CT examination September 03, 2024 Comparison September 03, 2024. CTDI: vol (mGy) 5.16 DLP: (mGycm) 348 Technique: Multiple axial sections of the abdomen and pelvis have been obtained. 64 slice high-resolution scanner used. 3 mm axial sections have been obtained, post intravenous injection 60 cc [id number] 2-D sagittal, coronal reconstructions obtained. Low dose protocols were performed. One or more of the following dose reduction techniques were used; automated exposure control, adjustment of the mA and/or KV according to patient size, use of iterative reconstruction technique. Findings: Pneumonia left base Mild to moderate partially loculated left pleural fluid No visualized liver or splenic lesion Contracted gallbladder with tiny gallstones No pancreatic or adrenal mass No renal or ureteral calculi, no hydronephrosis Again noted markedly fluid distended small bowel loops Abdominal aortic calcification no aneurysmal dilatation. Normal appendix Prostatomegaly 4.5 cm Sclerotic lesions again noted S1, L4, L1, T11 Impression: Pneumonia left base Mild to moderate partially loculated left pleural fluid High-grade mechanical small bowel obstruction pattern again noted, recommend repeat Gastrografin small bowel series follow-up
--- NOTE | 2024-09-11 20:25 | EKG_ITS ---
[facility] Test Date: 2024-09-11 Pat Name: SHERMAN HAIRSTON Department: Room: - Gender: Male Banking Attorney: : 1940 Requested By: Dmitri Iraheta Order Number: [id number] Reading MD: Dmitri Iraheta Measurements Intervals [place] Rate: 119 P: 71 [place]: 130 QRS: 8 QRSD: 84 T: 75 QT: 297 QTc: 418 Interpretive Statements SINUS TACHYCARDIA POSSIBLE LEFT ATRIAL ENLARGEMENT [-0.1mV P-WAVE IN V1/V2] LOW QRS VOLTAGE IN PRECORDIAL LEADS [QRS DEFLECTION < 1.0 mV IN CHEST LEADS] SEPTAL MYOCARDIAL INFARCTION , OF INDETERMINATE AGE [40+ ms Q WAVE IN V1/V2] Compared to ECG 11/18/2023 19:28:22 Myocardial infarct finding now present /store/S0/[id number]/[id number].pdf
[2024-09-11 20:33] VITALS: PULSE 120
[2024-09-11 20:41] VITALS: BP 125/77; PULSE 119; RESP 18; TEMP 36.8; O2SAT 95
[2024-09-11] MEDS: SODIUM CHLORIDE 0.9% 1000 ML 1,000 ML 999 ML IV (20:48)
[2024-09-11] MEDS: METOCLOPRAMIDE INJ 5 MG/ML VIAL 2 ML 10 MG IVP (20:48)
[2024-09-11 20:53] LABS: Lactate (Lactic Acid) 2.3 mMol/L (0.4-2.0)
[2024-09-11 20:55] LABS: Basophils % (Auto) 0 % (0-2.5); Eosinophils % (Auto) 0 % (0-10); Hematocrit 37.5 % (41.0-53.0); Hemoglobin 12.3 g/dL (13.5-16.0); Immature Granulocytes % (Auto) 1 % (0-0); Immature Granulocytes Auto 0.12 Thou/mm3 (0.00-0.00); Lymphocytes # (Auto) 0.4 Thou/mm3 (1.0-4.8); Lymphocytes % (Auto) 2 % (10-50); Mean Corpuscular HGB Conc 32.8 g/dl (31.0-37.0); Mean Corpuscular Hemoglobin 27.8 pg (25.0-35.0); Mean Corpuscular Volume 85 fL (80-100); Monocytes # (Auto) 0.9 Thou/mm3 (0.0-0.8); Monocytes % (Auto) 5 % (0-12); Neutrophils # (Auto) 16.8 Thou/mm3 (1.8-7.7); Neutrophils % (Auto) 92 % (37-80); Nucleated Red Blood Cell % 0 /100 WBC (0); Platelet Count 361 Thou/mm3 (140-440); RDW Standard Deviation 42.6 fL (35.1-43.9); Red Blood Count 4.42 Miln/mm3 (4.50-5.90); White Blood Count 18.3 Thou/mm3 (3.8-10.6)
[2024-09-11 21:35] LABS: Albumin, Serum 4.2 gm/dL (3.4-4.8); Alkaline Phosphatase 107 U/L (46-116); Amylase 95 U/L (30-118); Anion Gap 8 (7-16); Aspartate Amino Transferase 16 U/L (0-34); BUN/Creatinine Ratio 27 Ratio (12-20); Bilirubin,Total 0.5 mg/dL (0.3-1.2); Blood Urea Nitrogen 40 mg/dL (9-23); Calcium 9.6 mg/dL (8.3-10.6); Calcium (Corrected) 9.6 mg/dL (8.5-10.1); Carbon Dioxide 27.6 mMol/L (20.0-31.0); Chloride 94 mMol/L (98-107); Creatinine (Component) 1.5 mg/dL (0.6-1.3); Globulin 4.4 gm/dL (2.3-3.5); Glucose 146 mg/dL (74-106); Lipase 49 U/L (12-53); Magnesium 2.4 mg/dL (1.6-2.6); Osmolality,Calculated 273 (275-295); Potassium 4.5 mMol/L (3.4-5.1); Sodium 130 mMol/L (136-145); Total Protein 8.6 gm/dL (5.7-8.2); eGFR 46 See Note
--- NOTE | 2024-09-11 21:36 | EDNOTE_ITS ---
Nausea/Vomit./Diarrhea-RME/HPI General Chief complaint: Nausea/Vomiting/Diarrhea Stated complaint: nausea and vomiting Time Seen by Provider: 09/11/24 19:56 Arrival date/time: 09/11/24 19:07 Limitations: no limitations RME / HPI RME / HPI Narrative: 09/11/24 19:07 84 yo m present to ED for c/o ongoing n/v for 1 week, recent admission for sbo I have greeted and performed a focused initial assessment of this patient. A comprehensive ED assessment and evaluation of the patient, analysis of all test results, and completion of the medical decision making process will be conducted by additional ED providers. Dr. Rodriguez's Main ED Evaluation: 84yo male with a history of stage IV metastatic lung cancer s/p radiation presents to the ED for complaints of N/V x 1 week. Family at bedside states the patient was admitted here on 09/03/24 for a bowel obstruction and was discharged the next day. Patient has been having N/V since he was discharged on 09/04, reporting he has been unable to keep anything down. Patient was seen by his PCP on Friday and was told to start a liquid diet, but reports it did not help. Patient reports associated generalized weakness. He is burping, but not passing gas. Patient denies any fever, chills or any other associated symptoms. Patient's last BM was yesterday, but reports it was hard. Related Data Home Medications ?Medication ?Instructions ?Recorded ?Confirmed omeprazole 20 mg capsule,delayed 40 mg PO BID 09/03/24 09/04/24 release prednisone 20 mg tablet 20 mg PO Q12H 09/03/2409/04 promethazine-DM 6.25 mg-15 mg/5 mL 10 ml PO Q6H PRN co ugh 09/03/24 09/04/24 oral syrup alprazolam 0.5 mg tablet 0.5 mg PO QDAY 09/04/2410/24 lorazepam 1 mg tablet (Ativan) 1 mg PO QID PRN anxiety 09/04/24 09/04/24 Previous Rx's ?Medication ?Instructions ?Recorded Hydrocodone/Acetaminophen * (NORCO 1 tab PO Q4H PRN PA IN #20 tabs 10/29/15 5/325 *) Held on 09/04/24. Instructions: Resume on 09/11/24. Your pain medication is as needed, try do not take often as it can cause constipation as well. Follow-up with PCP. Allergies Allergy/AdvReac Type Severity Reaction Status Date / Time No Known Allergies Allergy Verified 09/03/24 10:06 Review of Systems Review of Systems Systems Reviewed: All systems reviewed, normal except as documented Past Medical History Past Medical History NEUROLOGIC: Negative Neurological Disorders, Cerebrovascular Accident, Transient Ischemic Attacks (TIA), Dementia, Alzheimer's Disease, Parkinson's Disease, Brain Tumor, Meningitis, Seizures, Epilepsy, Multiple Sclerosis, Cerebral Palsy, Amyotrophic Lateral Sclerosis (ALS/Kayli Gehrig's), Guillain-[place] Syndrome, Spina Bifida, Paralysis, Peripheral Neuropathy, Leos's Palsy, Subdural Hematoma, Migraine, Head Trauma, Spinal Cord Injury or Traumatic Brain Injury CARDIAC: Negative Cardiac Disorders, Myocardial Infarction, Cardiac Arrhythmia, Atrial Fibrillation, Angina, Heart Murmur, Coronary Artery Disease, Atherosclerotic Heart Disease, Peripheral Vascular Disease, Hypercholesterolemia, Aneurysm, Congestive Heart Failure, Congenital Heart Disease, Valvular Heart Disease, Rheumatic Fever, Cardiomyopathy, Edema, Pericarditis, Cellulitis, Deep Vein Thrombosis, Hypertension, Hypotension or Varicose Veins RESPIRATORY: Positive Chronic Obstructive Pulmonary Disease (COPD) and Pneumonia; Negative Asthma, Bronchitis, Emphysema, Pulmonary Fibrosis, Cystic Fibrosis, Tuberculosis, Pulmonary Embolism, Pulmonary Edema or Sleep Apnea GASTROINTESTINAL: Negative Gastrointestinal Disorders, Cirrhosis, Pancreatitis, Celiac Disease, Gall Bladder Disease, Gastrointestinal Bleed, Esophageal Varices, Prajapati's Esophagus, Colitis, Ulcerative Colitis, Diverticulitis, Diverticulosis, Ulcer, Irritable Bowel, Crohn's Disease, Obstructive Bowel, Hiatal Hernia, Hemorrhoids, Gastroesophageal Reflux Disease or Obesity GENITOURINARY: Negative Genitourinary Disorders, Renal Disease, Kidney Stones, Polycystic Kidney Disease, Neurogenic Bladder, Inguinal Hernia, Dialysis or Benign Prostatic Hyperplasia REPRODUCTIVE: Negative Genital Herpes, Gonorrhea, Syphilis or Testicular Cancer MUSCULOSKELETAL: Positive Fractures; Negative Musculoskeletal Disorders, Muscular Dystrophy, Myasthenia Gravis, Marfan's Syndrome, Arthritis, Rheumatoid Arthritis, Osteoporosis, Degenerative Disk Disease, Gout, Scoliosis, Carpal Tunnel Syndrome, Fibromyalgia, Degenerative Joint Disease, Osteomyelitis or Poliovirus ENT: Positive Retinal Detachment; Negative Cataracts, Glaucoma, Blind, Macular Degeneration, Ear Infection, Deafness, Head Trauma or Eye Prosthesis ENDOCRINE: Negative Endocrine Disorders, Diabetes Mellitus Type 1, Diabetes Mellitus Type 2, Hypoglycemia, Mahsa's Syndrome, Cottonwood's Disease, Hyperthyroidism, Hypothyroidism, Parathyroid Disease, Pituitary Disease, Systemic Lupus Erythematosus, Syndrome of Inappropriate Antidiuretic Hormone (SIADH), Adrenal Disease or Graves' Disease HEMATOLOGIC: Negative Blood Disorders, Anemia, Leukemia, Hemophilia, Thalassemia, Sickle Cell Disease or Clotting Problems PSYCHO/SOCIAL: Negative Psychiatric Problems, Schizophrenia, Recreational Drug Use, Bipolar Disorder, Depression, Anxiety, Behavior Problems, Self-Mutilation, Attention Deficit Disorder, Attention Deficit Hyperactivity Disorder, Post Traumatic Stress Disorder or Eating Disorder OTHER HISTORY: Positive Radiation Therapy, Cancer and Lung Cancer; Negative Autoimmune Disease, Autism, Blood Transfusions, Blood Transfusion Reaction, Anesthesia Reactions, Organ Transplant, MRSA, Clostridium Difficile or Testicular Cancer Family History FAMILY HISTORY: Positive Family Cancer; Negative Family Psychiatric Problems, Family Respiratory Disorders, Family Cardiac Disorders, Family Gastrointestinal Problems, Family Surgery or Family Anesthesia Reaction Surgical History SURGICAL: Negative Cardiac Surgery, Open Heart Surgery, Coronary Artery Bypass Graft, Valve Replacement, Vascular Surgery, Coronary Stent, Cardiac Catheterization, Pacemaker, Angiogram, Auto Implanted Cardiovert Defib, Carotid Endarterectomy, Endocrine Surgery, Thyroidectomy, Ear Surgery, Tympanostomy Tube, Eye Surgery, Nose Surgery, Oral Surgery, Tonsillectomy, Adenoidectomy, Cochlear Implant, Corneal Transplant, Throat Surgery, Abdominal Surgery, Tracheostomy, Gastric Bypass Surgery, Gastrostomy, Bowel Surgery, Nephrectomy, Transurethral Resection, Joint Replacement, Amputation, Open Reduction Internal Fixation, Arthroscopy, Neurologic Surgery, Brain Shunt, Vasectomy or Organ Transplant Social History SMOKING STATUS: Former smoker SECOND HAND EXPOSURE: No SUBSTANCE USE: does not use ED Exam General Limitations: Present no limitations General appearance: Present alert and in no apparent distress Head Head exam: Present atraumatic Eye Eye exam: Present normal appearance, PERRL and EOMI ENT ENT exam: Present normal exam, normal oropharynx and mucous membranes moist Neck Neck exam: Present normal inspection, full ROM and trachea midline Chest Chest inspection: Present normal inspection and symmetric chest wall rise Respiratory Respiratory exam: Present normal lung sounds bilaterally Cardiovascular Cardiovascular exam: Present regular rate, normal rhythm and normal heart sounds Abdominal Exam Abdominal exam: Present soft and diminished bowel sounds; Absent rebound Extremities Exam Extremities exam: Present normal inspection and full ROM Back Exam Back exam: Present normal inspection and full ROM Neurological Exam Neurological exam: Present alert, oriented X3 and CN II-XII intact Psychiatric Psychiatric exam: Present normal affect and normal mood Skin Skin exam: Present warm, dry, intact and normal color Course Quality Measures none Orders Category Date Time Status CT Screening NOW Care 09/11/24 20:00 Active Graphics Editor Q4H START 00 Care 09/11/24 20:25 Active EKG (ED ONLY) *Do not use* NOW Care 09/11/24 20:[address] abdomen pelvis w con Stat Exams 09/11/24 20:00 Completed EKG (ED Only) Stat Exams 09/11/24 20:25 Draft Amylase Stat Lab 09/11/24 20:24 Completed CBC Stat Lab 09/11/24 20:24 Completed CMP [Comprehensive Metabolic Panel] Stat Lab 09/11/24 20:24 Completed Lactic Acid [Lactate (Lactic Acid)] Stat Lab 09/11/24 20:24 Results Lipase Stat Lab 09/11/24 20:24 Completed Mag [Magnesium] Stat Lab 09/11/24 20:24 Completed Procalcitonin Stat Lab 09/11/24 20:24 Completed Troponin I Stat Lab 09/11/24 20:24 Completed Metoclopramide Inj [Reglan Inj] Med 09/11/24 19:59 Discontinued 10 mg IVP X1 ONE Sodium Chloride 0.9% 1000 ml [Ns] 1,000 ml Med 09/11/24 20:00 Discontinued IV 999 mls/hr Vital Signs Vital signs: Vital Signs Temperature 97.7 F 09/11/24 19:52 Pulse Rate 136 H 09/11/24 19:52 Respiratory Rate 19 09/11/24 19:52 Blood Pressure 110/67 09/11/24 19:52 Pulse Oximetry (%) 96 09/11/24 19:52 Oxygen Delivery Method Room Air 09/11/24 19:52 Nausea/Vomiting/Diarrhea MDM Narrative MDM Narrative:: Scribe Attestation: 09/11/24 Jessica Rodriguez am scribing for and in the presence of Dr. Rodriguez. Patient data External records reviewed:: [facility] previous records (Per chart review, patient was admitted here on 09/03/24 for bowel obstruction.) Clinical information provided by:: patient and family Social determinants that could affect healthcare access:: none Patient has the following chronic illnesses:: stage IV metastatic lung cancer s/p radiation How is presenting disease/condition affected by chronic disease/condition?: uneffected by Evaluation data The following diagnostics were reviewed and interpreted by me:: lab results and radiology exam(s) Lab and/or radiology exams considered but not ordered:: none Interpretation Summary: WBC count is elevated at 18.3, Sodium is 130, Creatinine is 1.5, BUN is 40, Lactic Acid is 2.3, Troponin is normal, Lipase is normal, Amylase is normal, according to my interpretation. EKG done at 2037, sinus tachycardia, rate of 118, low voltage, no ST depressions, QTc: 368, no acute ischemia, according to my interpretation. [facility] Report Signed Patient: SHERMAN HAIRSTON Record#: [id number] Birthdate: 1940 Age/Sex: 84 / M Location: [facility] Attending Dr: Ordering Physician: Dmitri Sauceda PA-C Date of Service: 09/11/24 Procedure(s): CT abdomen pelvis w con Accession Number(s): [id number] cc: Minor Mcdowell MD; Jason Siegel MD; Dmitri Sauceda PA-C~ Examination: CT abdomen with intravenous contrast CT pelvis with intravenous contrast 2-D coronal reconstructions 2-D sagittal reconstructions Date and time of exam:September 11, 2024 2130 hrs. Indications: Abdominal pain nausea vomiting beginning 21 weeks ago, small bowel obstruction on CT examination September 03, 2024 Comparison September 03, 2024. CTDI: vol (mGy) 5.16 DLP: (mGycm) 348 Technique: Multiple axial sections of the abdomen and pelvis have been obtained. 64 slice high-resolution scanner used. 3 mm axial sections have been obtained, post intravenous injection 60 cc [id number] 2-D sagittal, coronal reconstructions obtained. Low dose protocols were performed. One or more of the following dose reduction techniques were used; automated exposure control, adjustment of the mA and/or KV according to patient size, use of iterative reconstruction technique. Findings: Pneumonia left base Mild to moderate partially loculated left pleural fluid No visualized liver or splenic lesion Contracted gallbladder with tiny gallstones No pancreatic or adrenal mass No renal or ureteral calculi, no hydronephrosis Again noted markedly fluid distended small bowel loops Abdominal aortic calcification no aneurysmal dilatation. Normal appendix Prostatomegaly 4.5 cm Sclerotic lesions again noted S1, L4, L1, T11 Impression: Pneumonia left base Mild to moderate partially loculated left pleural fluid High-grade mechanical small bowel obstruction pattern again noted, recommend repeat Gastrografin small bowel series follow-up Dictated By: Jason Siegel MD Signed By: <Electronically signed by Jason Siegel MD in OV> 09/11/24 8614 Medications / Prescriptions Medications / Prescriptions considered but not ordered:: none Medication administrations:: Medication Administration History Heparin Sodium (Porcine) (Heparin Sod Inj 5000 Unit/Ml Vial) 5,000 unit SC Q8HR DANYELLE Stop: 09/26/24 05:59 Sodium Chloride (Ns) 1,000 mls @ 75 mls/hr IV .[id number] DANYELLE Stop: 10/11/24 22:29 Ceftriaxone Sodium/Dextrose (Rocephin/D5w 1gm Iv Premix) 1 gm in 50 mls @ 100 mls/hr IV QDAY@2100 DANYELLE Stop: 09/18/24 22:24 Azithromycin 500 mg/ Sodium (Chloride) 250 mls @ 250 mls/hr IV QDAY@2100 DANYELLE Stop: 09/18/24 22:25 Azithromycin 500 mg/ Sodium (Chloride) 250 mls @ 250 mls/hr IV X1 ONE Stop: 09/11/24 23:44 Ceftriaxone Sodium/Dextrose (Rocephin/D5w 1gm Iv Premix) 1 gm in 50 mls @ 100 mls/hr IV X1 ONE Stop: 09/11/24 23:14 Ondansetron HCl (Ondansetron Inj 2 Mg/Ml Inj 2 Ml) 4 mg IV Q6HR PRN; Protocol PRN Reason: NAUSEA OR VOMITING Stop: 10/11/24 22:19 Discontinued Medications Sodium Chloride (Ns) 1,000 mls @ 999 mls/hr IV .Q1H1M ONE Stop: 09/11/24 21:00 Last Infusion: 09/11/24 21:49 Dose: Infused Documented By: Admin: 09/11/24 20:48 Dose: 999 mls/hr Documented By: EF Metoclopramide HCl (Metoclopramide Inj 5 Mg/Ml Vial 2 Ml) 10 mg IVP X1 ONE; Protocol Stop: 09/11/24 20:00 Last Admin: 09/11/24 20:48 Dose: 10 mg Documented By: EF see above Consultations Consultation(s) initiated? (list below): Yes Consultation #1 (Physician, Specialty, Details): Discussed case with Dr. Demarco from Hospitalist service regarding admission. Discussed patients ED course, exam findings, labs, and radiology results. The Hospitalist [agrees] to accept the patient for admission. Time: 22:11 Diagnosis Nausea Differential Diagnosis: dehydration and other (SBO, constipation, electrolyte abnormality) Most likely diagnosis given after review of the tests above:: see clinical impression below Admission Indicated Admission indicated?: indicated Admission Request Was there a request for admission?: Yes Admission Attestation Admission request attestation: Discussed case with [] from Hospitalist service regarding admission. Discussed patients ED course, exam findings, labs, and radiology results. The Hospitalist [agrees,declines] to accept the patient for admission. Disposition Plan Disposition Plan: Admit Discharge Plan Plan Patient Disposition: Admit Acute Care w/in Hospital Disposition Comment: Admitted to Dr. Demarco Problem List Clinical Impression: SBO (small bowel obstruction)
[2024-09-11 21:41] LABS: Alanine Aminotransferase 8 U/L (10-49); Troponin I < 0.020 ng/mL (0.0-0.045)
--- NOTE | 2024-09-11 22:21 | EVENTNT_ITS ---
Documentation for date of: 09/11/24 Event Note Event Note: A 84-year-old male presented to the ER with the chief complaint of nausea and vomiting. The patient?s son reports that he was admitted last week for small bowel obstruction and discharged the following day, with only one day of symptom relief. Since then, he has experienced progressively worsening nausea and vomiting, now unable to tolerate even water. Vomiting typically worsens throughout the day, while mornings had been relatively better. He last had a small bowel movement the night prior, consisting of scant pellet-like stool, and has only passed minimal gas since. The patient denies abdominal pain, shortness of breath, fever, or chills. He reports generalized weakness and has not eaten in four days. He was previously advised to attempt a liquid diet by his PCP, which was ineffective. Due toabove mention, he came to ER. 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 Surgical history includes left hip cephalomedullary nail placement and open biopsy of the femur. Social history includes a [id number] smoking history, retired truck service technician, no recent alcohol use. He lives with his son and previously used a cane but is currently too weak to ambulate. Code sta tus remains full per prior discussion. No recent drainage of pleural fluid has been performed in the last six months. In the ER, vital signs recorded as temp 97.7 F, HR 136 bpm, RR 19, BP 110/67 mmHg. Labs revealed WBC 18.3, Hgb 12.3, PLT 361, Na 130, K 4.5, BUN 40, Cr 1.5, glucose 146, lactic acid 2.3. EKG showed sinus tachycardia. CT demonstrated pneumonia in the left lung base, mild to moderate partially loculated left pleural effusion, and a high-grade mechanical small bowel obstruction. Recommendation made for follow-up Gastrografin small bowel series. The patient is being admitted for further evaluation and management. #Recurrent Small Bowel Obstruction Assessment: High-grade mechanical SBO on CT, persistent nausea/vomiting, obstipation, electrolyte abnormality (hyponatremia), volume depletion (elevated BUN/Cr), mild lactic acidosis, history of recent SBO hospitalization Plan: - NPO, maintain bowel rest - Insert NG tube for gastric decompression - IVF - Serial abdominal exams - Follow-up Gastrografin small bowel series to evaluate obstruction severity and potential resolution - Consider surgery consult #Sepsis #Pneumonia with Loculated Pleural Effusion Assessment: Meets SIRS criteria (WBC >12, HR >90), suspected infection (pneumonia), lactic acid 2.3 Plan: - Broad-spectrum IV antibiotics - Monitor for respiratory symptoms, O2 sats - Check procalcitonin - Consider thoracentesis #CAROLYN #Hyponatremia Assessment: Mild (Na 130), likely multifactorial?volume depletion, poor oral intake Plan: - IV fluid repletion, monitor Na correction carefully - Avoid rapid correction #Chronic Lung Cancer (Stage IV) Assessment: History of invasive squamous cell carcinoma, s/p radiation, no recent thoracentesis, moderate loculated pleural effusion possibly malignant or infectious Plan: - Ensure goals of care remain aligned; code status confirmed as full - Outpatient follow-up with oncology
[2024-09-11 22:54] LABS: Procalcitonin 0.49 ng/ml (0.0-0.49)
[2024-09-11] MEDS: cefTRIAXone/D5w 1gm IV premix 1 GM/50 ML BAG IV (23:08)
[2024-09-11] MEDS: SODIUM CHLORIDE 0.9% 1000 ML 1,000 ML 75 ML IV (23:09)
[2024-09-11] MEDS: AZITHROMYCIN INJ 500 MG in SODIUM CHLORIDE 0.9% 250 ML 250 ML 250 MG IV (23:09)
--- NOTE | 2024-09-11 23:23 | XR_ITS ---
Examination: AP chest single view Technique one AP portable upright chest single view Exam date and time: September 11, 2024 11:29 PM Indications: Post orogastric tube placement Findings: Orogastric tube tip in the stomach satisfactory position Extensive pleural parenchymal disease left mid and lower lung zone again noted Cardiac contour is obscured by the patient's parenchymal disease in the left lower lobe Impression: Orogastric tube in stomach satisfactory position Air distended small bowel loops partially visualized
[2024-09-11 23:25] VITALS: BP 123/73; PULSE 112; RESP 19; O2SAT 95
--- NOTE | 2024-09-11 23:48 | ESHP_ITS ---
Documentation for date of: 09/11/24 HPI History of Present Illness Chief complaint: N/V for one week History of present illness: HPI:An 84-year-old male patient with past medical history of COPD on oxygen at home unknown rate, stage IV lung cancer s/p radiation 2023, on hospice, however, full code, with recent history of admission due to SBO and she was discharged on 04 September 2024 presented to the ED due to persistent nausea and vomiting for the past week. His daughter at bedside reported that 1 day after the patient was discharged he started to develop persistent nausea and vomiting and constipation. She also reported persistent burping. She mentions that patient continued to have bowel movements and pass gas however the stool seems to be harder than usual and small amount. The patient reported to his family that he also has abdominal discomfort. They denied any fever, chills, or abdominal pain, denied any abdominal distention. His daughter reported for the past month patient lost 15 pounds. On questioning for any potential medications that can cause constipation she mentioned only that the patient use lorazepam to help him with his breathing. She mentioned that he was prescribed [place] however he only used it 3 times for the past 1 month. During his recent admission CT scan showed high-grade SBO, he only stayed for 1 day for abdominal x-ray series, however the patient had 4 large bowel movement.?Patient was started on diet and tolerated well and was discharged in the hospital with laxatives. In the ER, vital signs recorded as temp 97.7 F, HR 136 bpm, RR 19, BP 110/67 mmHg. Labs revealed WBC 18.3, Hgb 12.3, Na 130, K 4.5, BUN 40, Cr 1.5, baseline serum creatinine is 0.7. Glucose 146, lactic acid mildly elevated 2.3 most likely secondary to dehydration. EKG showed sinus tachycardia. Abdomen/pelvis CT demonstrated left lung base infiltrate which was seen in previous imaging. Also showed mild to moderate partially loculated left pleural effusion, and a high-grade mechanical small bowel obstruction. Recommendation made for follow-up Gastrografin small bowel series. The patient is being admitted for further evaluation and management. PMH:As above PSX:left hip cephalomedullary nail placement and open biopsy of the femur. PFX: Father was diagnosed with neck cancer, mother with breast cancer Social hx: Alcohol:Previously social drinking Tobacco: Hx of smoking for 65 years Illicit drugs:denied Allergies:NKA Review of Systems Review of Systems Systems Reviewed: All systems reviewed, normal except as documented Exam Vital Signs Temp Pulse Resp BP Pulse Ox O2 Del Method 98.3 F 112 H 19 123/73 95 Room Air 09/11/24 20:41 09/11/24 23:25 09/11/24 23:25 09/11/24 23:25 09/11/24 23:25 09/11/24 23:25 Narrative Exam GEN: AOx3, able to speak full sentences. HEENT: NC/AC, oral mucosa dry, neck supple. CVS: RRR, Pounding S1-S2 present, no murmurs appreciated. RESP: CTAB. GI: Soft,non distended, non tender, NBS. MSK: Able to move all 4 limbs, no lower extremity edema. SKIN: Warm and dry. DIRECTOR OF STAFF DEVELOPMENT: CN II-XII and Sensation grossly intact. Results: Labs 09/11/24 20:24 09/11/24 20:24 Labs: Short CBC 09/11/24 Range/Units 20:24 WBC 18.3 H (3.8-10.6) Thou/mm3 Hgb 12.3 L (13.5-16.0) g/dL Hct 37.5 L (41.0-53.0) % Plt Count 361 D (140-440) Thou/mm3 BMP 09/11/24 20:24 Sodium 130 L Potassium 4.5 Chloride 94 L Carbon Dioxide 27.6 BUN 40 H Creatinine 1.5 H Glucose 146 H Calcium 9.6 Cardiac Enzymes 09/11/24 Range/Units 20:24 Troponin I < 0.020 (0.0-0.045) ng/mL Liver Function 09/11/24 Range/Units 20:24 Total Bilirubin 0.5 (0.3-1.2) mg/dL AST 16 (0-34) U/L ALT 8 L (10-49) U/L Alkaline Phosphatase 107 (46-116) U/L Albumin 4.2 (3.4-4.8) gm/dL Quality Measures Quality Measures none Advance care planning discussed with:: patient and child Medications Home Medications and Allergies Home Medications ?Medication ?Instructions ?Recorded ?Confirmed ?Type omeprazole 20 mg capsule,delayed 40 mg PO BID 09/03/24 09/12/24 History release prednisone 20 mg tablet 20 mg PO Q12H 09/03/2409/12 History promethazine-DM 6.25 mg-15 mg/5 mL 10 ml PO Q6H PRN co ugh 09/03/24 09/12/24 History oral syrup alprazolam 0.5 mg tablet 0.5 mg PO QDAY 09/04/2408/31 History lorazepam 1 mg tablet (Ativan) 1 mg PO QID PRN anxiety 09/04/24 09/12/24 History lactulose 10 gram/15 mL oral 10 g PO QDAY 09/12/24 History solution (Enulose) latanoprost 0.005 % eye drops 1 drp Right eye HS 09/1209/12/24 History lorazepam 0.5 mg tablet (Ativan) 0.5 mg PO QID PRN anx iety 09/12/24 09/12/24 History prochlorperazine maleate 10 mg 10 mg PO Q6H PRN nausea and 09/12/24 09/12/24 History tablet (Compazine) vomiting sucralfate 1 gram tablet 1 g PO BID 09/12/24 09/12/24 History timolol maleate 0.5 % eye drops 1 drp Right eye Q12H 0 09/12/24 09/12/24 History Allergies Allergy/AdvReac Type Severity Reaction Status Date / Time No Known Allergies Allergy Verified 09/03/24 10:06 Visit Medications Albuterol/Ipratropium (Albuterol/Ipratropium (Duoneb) Rt Cherelle 3 Ml Nebu) 3 ml INH Q4HRRT PRN PRN Reason: Wheezing and SOB Stop: 10/12/24 02:59 Heparin Sodium (Porcine) (Heparin Sod Inj 5000 Unit/Ml Vial) 5,000 unit SC Q8HR DANYELLE Stop: 09/26/24 05:59 Sodium Chloride (Ns) 1,000 mls @ 75 mls/hr IV .[id number] DANYELLE Stop: 10/11/24 22:29 Last Admin: 09/11/24 23:09 Dose: 75 mls/hr Ceftriaxone Sodium/Dextrose (Rocephin/D5w 1gm Iv Premix) 1 gm in 50 mls @ 100 mls/hr IV QDAY@2100 DANYELLE Stop: 09/18/24 22:24 Azithromycin 500 mg/ Sodium (Chloride) 250 mls @ 250 mls/hr IV QDAY@2100 DANYELLE Stop: 09/18/24 22:25 Sodium Chloride (Ns) 1,000 mls @ 999 mls/hr IV .Q1H1M ONE Stop: 09/12/24 00:47 Ondansetron HCl (Ondansetron Inj 2 Mg/Ml Inj 2 Ml) 4 mg IV Q6HR PRN; Protocol PRN Reason: NAUSEA OR VOMITING Stop: 10/11/24 22:19 Pantoprazole Sodium (Pantoprazole Inj 40 Mg Vial) 40 mg IVP QDAY [facility] Stop: 10/12/24 08:59 Discontinued Medications Sodium Chloride (Ns) 1,000 mls @ 999 mls/hr IV .Q1H1M ONE Stop: 09/11/24 21:00 Last Infusion: 09/11/24 21:49 Dose: Infused Azithromycin 500 mg/ Sodium (Chloride) 250 mls @ 250 mls/hr IV X1 ONE Stop: 09/11/24 23:44 Last Admin: 09/11/24 23:09 Dose: 250 mls/hr Ceftriaxone Sodium/Dextrose (Rocephin/D5w 1gm Iv Premix) 1 gm in 50 mls @ 100 mls/hr IV X1 ONE Stop: 09/11/24 23:14 Last Admin: 09/11/24 23:08 Dose: 100 mls/hr Metoclopramide HCl (Metoclopramide Inj 5 Mg/Ml Vial 2 Ml) 10 mg IVP X1 ONE; Protocol Stop: 09/11/24 20:00 Last Admin: 09/11/24 20:48 Dose: 10 mg Assessment & Plan Plan Summary: An 84-year-old male patient with past medical history of COPD on oxygen at home unknown rate, stage IV lung cancer s/p radiation 2023, on hospice, however, full code, with recent history of admission due to SBO and she was discharged on 04 September 2024 presented to the ED due to persistent nausea and vomiting for the past week. Patient was admitted for management of SBO and possible associated sepsis 2/2 PNA. A/P #Intractable nausea and vomiting most likely secondary to SBO #Recurrent Small Bowel Obstruction #Dehydration Patient previously admitted due to SBO that resolved spontaneously. Today presented with N/V for 1 week high-grade mechanical SBO on CT, last bowel movement was yesterday small amount of hard stool. Calcium was within normal limits, no significant history of opioid use, volume depletion (elevated BUN/Cr), mild lactic acidosis, history of recent SBO hospitalization. Plan: - NPO, with aspiration precautions - Start the patient on pantoprazole 40 mg IV daily - Insert NG tube and low intermittent suction for gastric decompression - Give another bolus of NS 1 L,, continue NS maintenance at 75 mL/h - Serial abdominal exams - Follow-up Gastrografin small bowel series to evaluate obstruction severity and potential resolution - Consider surgery consult #Sepsis # Possible pneumonia with Loculated Pleural Effusion #History of invasive lung cancer status postradiation stage IV Assessment: Meets SIRS criteria (WBC: 18, HR 136, CT scan showed left basilar infiltrate most likely secondary to pneumonia with loculated pleural effusion suspected infection (pneumonia), lactic acid 2.3. Pro-Vasquez within normal limits Plan: - Rocefin 1gm IV Qday - Azithromycin PO Qday - Monitor for respiratory symptoms, O2 sats - Consider thoracentesis - Follow up on the Bx results - Follow in o/p with the oncology team #CAROLYN #Mild Hyponatremia PAtient has persistant N/V, Decreased oral intake, Na130, likely multifactorial?volume depletion, poor oral intake Plan: - Another 1 L IVF bolus - Maintainance IVF of 75 mL/Hr - Strict in and out - IV fluid repletion, monitor Na correction carefully - Avoid rapid correction - Daily [facility] Hospital Maintenance: FEN: NPO DVT ppx: Heparin Sq GI ppx: Protonix IV lines: PIV Rueda: None Code status: Full code Dispo: Med-Surg Patient's plan and care discussed with my attending, Dr. Dav Parker MD Internal Medicine PGY-2 Attending Provider Attestation/Addendum Pt was evaluated and plan formulated together with the housestaff team. I have reviewed the residents note above and agree with most of its content. Please refer to the residents note for additional details.
[2024-09-11 23:49] LABS: Reflex Lactate? Y
[2024-09-12] VITALS (7 sets, daily range): BP systolic 122–153; BP diastolic 65–86; PULSE 88–118; RESP 16–20; TEMP 36.2–37; O2SAT 93–99; BMI 18.2
--- NOTE | 2024-09-12 | XR_ITS ---
Examination: Abdomen AP single view Technique: AP portable supine abdomen, single view Exam date and time: 09/29/2024, 12:10 PM INDICATION: Evaluate for bowel obstruction. Comparison CT exam from 09/11/2024 FINDINGS: Contrast opacifies a dilated loop of small bowel in the left upper quadrant. Small bowel measures up to 4 cm in this region. Contrast is seen throughout the colon. IMPRESSION: Findings consistent with partial small bowel obstruction versus ileus.
--- NOTE | 2024-09-12 | XR_ITS ---
Examination: Abdomen AP single view Technique: AP portable supine abdomen, single view Exam date and time: 09/12/2024, 1:59 PM INDICATION: Follow-up small bowel obstruction. COMPARISON: Earlier today. FINDINGS: Residual contrast scattered in dilated small bowel. Residual contrast throughout colon. No significant change of contrast pattern when compared to prior image IMPRESSION: As above
--- NOTE | 2024-09-12 | XR_ITS ---
Examination: Abdomen AP single view Technique: AP portable supine abdomen, single view Exam date and time: September 12, 2024 1729 hours INDICATIONS: Abdominal distention this week, 8 hour delayed film post small bowel series today FINDINGS: Contrast primarily in the colon IMPRESSION: Negative for complete small bowel obstruction
[2024-09-12 00:45] LABS: Lactic Acid, 3 HR 1.3 mMol/L (0.4-2.0)
--- NOTE | 2024-09-12 01:01 | PRELIM_ITS ---
Radiograph of the chest (single view). September 11, 2024 2327 hours Clinical history: ng placement Comparison: No prior study is available for comparison. Findings: A nasogastric catheter is in satisfactory position with its tip in the stomach. The lungs are clear. There is a moderate left pleural effusion with atelactasis/consolidation. There are gas distended bowel loops noted in the left upper abdomen. The bony thorax is unremarkable. Impression: Nasogastric catheter in satisfactory position. Moderate left pleural effusion with underlying atelactasis/consolidation. Recommend clinical correlation. Report Electronically Signed By: Misael Biggs 09/12/2024 1:00:38 AM [EST]
[2024-09-12] MEDS: SODIUM CHLORIDE 0.9% 1000 ML 1,000 ML 999 ML IV (01:28)
[2024-09-12] MEDS: HEPARIN SOD INJ 5000 UNIT/ML VIAL SC ×3 (05:06→22:25)
[2024-09-12 06:10] LABS: Basophils % (Auto) 0 % (0-2.5); Eosinophils % (Auto) 0 % (0-10); Hematocrit 30.7 % (41.0-53.0); Hemoglobin 10.1 g/dL (13.5-16.0); Immature Granulocytes % (Auto) 1 % (0-0); Immature Granulocytes Auto 0.07 Thou/mm3 (0.00-0.00); Lymphocytes # (Auto) 0.5 Thou/mm3 (1.0-4.8); Lymphocytes % (Auto) 4 % (10-50); Mean Corpuscular HGB Conc 32.9 g/dl (31.0-37.0); Mean Corpuscular Hemoglobin 28.1 pg (25.0-35.0); Mean Corpuscular Volume 86 fL (80-100); Monocytes # (Auto) 0.8 Thou/mm3 (0.0-0.8); Monocytes % (Auto) 6 % (0-12); Neutrophils # (Auto) 12.4 Thou/mm3 (1.8-7.7); Neutrophils % (Auto) 90 % (37-80); Nucleated Red Blood Cell % 0 /100 WBC (0); Platelet Count 288 Thou/mm3 (140-440); RDW Standard Deviation 43.2 fL (35.1-43.9); Red Blood Count 3.59 Miln/mm3 (4.50-5.90); White Blood Count 13.8 Thou/mm3 (3.8-10.6)
[2024-09-12 06:55] LABS: Alanine Aminotransferase < 7 U/L (10-49); Albumin, Serum 3.2 gm/dL (3.4-4.8); Alkaline Phosphatase 85 U/L (46-116); Anion Gap 5 (7-16); Aspartate Amino Transferase 12 U/L (0-34); BUN/Creatinine Ratio 34 Ratio (12-20); Bilirubin,Total 0.3 mg/dL (0.3-1.2); Blood Urea Nitrogen 31 mg/dL (9-23); Calcium 8.4 mg/dL (8.3-10.6); Carbon Dioxide 27.4 mMol/L (20.0-31.0); Chloride 101 mMol/L (98-107); Creatinine (Component) 0.9 mg/dL (0.6-1.3); Estimated Creatinine Clearance 56.8 mL/min (>60); Globulin 3.3 gm/dL (2.3-3.5); Glucose 121 mg/dL (74-106); Osmolality,Calculated 273 (275-295); Phosphorous 2.7 mg/dL (2.4-5.1); Potassium 4.2 mMol/L (3.4-5.1); Sodium 133 mMol/L (136-145); Total Protein 6.5 gm/dL (5.7-8.2); eGFR > 60 See Note
--- NOTE | 2024-09-12 08:56 | XR_ITS ---
Examination: Axial images demonstrate Abdomen AP supine abdomen films Exam date and time: September 14, 2024 1004 hrs. Indications: High-grade mechanical small bowel obstruction on CT abdomen pelvis study this morning Technique And Findings: [employer] film demonstrates air distended small bowel Patient received 120 cc Gastrografin with immediate 1 minute and 1 hr abdomen films obtained. Contrast is in the stomach at this time Multiple additional films will be obtained Impression: Early small bowel images Recommend follow-up films at 12 noon 2 pm, 4:00 PM, 6:00 PM
[2024-09-12] MEDS: PANTOPRAZOLE INJ 40 MG VIAL IVP (09:10)
--- NOTE | 2024-09-12 13:04 | ESPR_ITS ---
<Statement entered by April Soriano MD - 09/17/24 12:56> I reviewed above note and agree with findings and plans. I have also personally examined the patient with medicine team and went over assessment and plan with medical team including diversity intern and resident physician. Documentation for date of: 09/12/24 Subjective Subjective Interval history: Overnight admitted. Family at bedside stated patient has been having increasing difficulty with defecation and constipation. Patient goes several days without going to the restroom. Last bowel movement was yesterday. Patient stated stool is hard and pebble-like. Patient denied melena or hematochezia in stool. Patient denied maroon color like consistency. Patient is not receiving any radiation currently or chemotherapy.Still passing gas. Denied opioid use for pain. Exam Vital Signs Temp Pulse Resp BP Pulse Ox O2 Del Method 97.2 F 99 18 126/72 96 Room Air 09/12/24 12:00 09/12/24 12:00 09/12/24 12:00 09/12/24 12:00 09/12/24 12:00 09/12/24 12:00 Narrative Exam General Appearance: Alert & Oriented X3, male who is lying in bed in mild discomfort HEENT: Skull symmetrical and atraumatic. Conjunctivae pin and moist. Pupils equal, round, reactive to light and accommodation (PERRL). External ear without lesion or discharge. Straight, nares patient, mucosa pink, no discharge. No thyroid nodule appreciated. No cervical lymphadenopathy. Cardio: Normal Rate and Rhythm with S1 and S2 heart sounds. No murmurs or extra heart sounds auscultated. No bruits on carotid auscultation. No peripheral edema or cyanosis. Lungs: Symmetric with good expansion. Chest and back non-tender. Breath sounds vesicular without crackles, wheezing or rhonchi Abdomen: diffuse tender, Non-distended,hypo-reactive bowel. Neuro: Alert, cooperative, oriented to person, place, and time. Speech clear. CN grossly intact. Upper motor strength 5/5 and Lower motor strength 5/5. Sensation intact. Objective Labs 09/12/24 05:55 09/12/24 05:55 Labs: Laboratory Results - last 24 hr 09/11/24 09/12/24 09/12/24 20:24 00:23 05:55 WBC 18.3 H 13.8 H RBC 4.42 L 3.59 L Hgb 12.3 L 10.1 L D Hct 37.5 L 30.7 L MCV 85 86 MCH 27.8 28.1 MCHC 32.8 32.9 RDW Std Deviation 42.6 43.2 Plt Count 361 D 288 D Neut % (Auto) 92 H 90 H Lymph % (Auto) 2 L 4 L Floyd % (Auto) 5 6 Eos % (Auto) 0 0 Baso % (Auto) 0 0 Neut # (Auto) 16.8 H 12.4 H Lymph # (Auto) 0.4 L 0.5 L Floyd # (Auto) 0.9 H 0.8 Eos # (Auto) 0.0 0.0 Baso # (Auto) 0.0 0.0 Immature Gran # (Auto) 0.12 H 0.07 H Absolute Nucleated RBC 0.00 0.00 Immature Gran % 1 H 1 H Nucleated RBC % 0 0 Sodium 130 L 133 L Potassium 4.5 4.2 Chloride 94 L 101 Carbon Dioxide 27.6 27.4 Anion Gap 8 5 L BUN 40 H 31 H Creatinine 1.5 H 0.9 D Estim Creat Clear Calc 34.0 L 56.8 L eGFR 46 L > 60 BUN/Creatinine Ratio 27 H 34 H Glucose 146 H 121 H Calculated Osmolality 273 L 273 L Lactic Acid 2.3 H 1.3 Calcium 9.6 8.4 Corrected Calcium 9.6 9.0 Phosphorus 2.7 Magnesium 2.4 2.0 Total Bilirubin 0.5 0.3 AST 16 12 ALT 8 L < 7 L Alkaline Phosphatase 107 85 D Troponin I < 0.020 Total Protein 8.6 H 6.5 Albumin 4.2 3.2 L D Globulin 4.4 H 3.3 Albumin/Globulin Ratio 1.0 L 1.0 L Amylase 95 Lipase 49 Procalcitonin 0.49 Quality Measures Quality Measures none Advance care planning discussed with:: patient and child Assessment & Plan Assessment Current Active Medications: Generic Name Dose Route Start Last Admin Trade Name Freq PRN Reason Stop Dose Admin Albuterol/Ipratropium 3 ml 09/11/24 23:22 Albuterol/Ipratropium (Duoneb) Rt Cherelle 3 Ml Nebu INH 10/12/24 02:59 Q4HRRT PRN Wheezing and SOB Heparin Sodium (Porcine) 5,000 unit 09/12/24 06:00 09/12/24 05:06 Heparin Sod Inj 5000 Unit/Ml Vial SC 09/26/24 05:59 5,000 unit Q8HR DANYELLE Administration Sodium Chloride 1,000 mls @ 75 mls/hr 09/11/24 22:30 09/11/24 23:09 Ns IV 10/11/24 22:29 75 mls/hr .[id number] DANYELLE Administration Ceftriaxone Sodium/Dextrose 1 gm in 50 mls @ 100 mls/hr 09/12/24 21:00 Rocephin/D5w 1gm Iv Premix IV 09/18/24 22:24 QDAY@2100 DANYELLE Azithromycin 500 mg/ Sodium 250 mls @ 250 mls/hr 09/12/24 21:00 Chloride IV 09/18/24 22:25 QDAY@2100 DANYELLE Ondansetron HCl 4 mg 09/11/24 22:20 Ondansetron Inj 2 Mg/Ml Inj 2 Ml IV 10/11/24 22:19 Q6HR PRN NAUSEA OR VOMITING Protocol Pantoprazole Sodium 40 mg 09/12/24 09:00 09/12/24 09:10 Pantoprazole Inj 40 Mg Vial IVP 10/12/24 08:59 40 mg QDAY DANYELLE Administration Plan Summary: An 84-year-old male patient with past medical history of COPD on oxygen at home unknown rate, stage IV lung cancer s/p radiation 2023, on hospice, and a recent history of SBO. Admitted on 09/11/2024 for SBO and sepsis secondary to pneumonia. #Recurrent Small Bowel Obstruction #Intractable nausea and vomiting most likely secondary to SBO Patient previously admitted due to SBO that resolved spontaneously. Today presented with N/V for 1 week high-grade mechanical SBO on CT, last bowel movement was yesterday small amount of hard stool. Calcium was within normal limits, no significant history of opioid use, volume depletion (elevated BUN/Cr), mild lactic acidosis, history of recent SBO hospitalization. Plan: - Small bowel series - NPO, with aspiration precautions - Start the patient on pantoprazole 40 mg IV daily - Insert NG tube and low intermittent suction for gastric decompression -NS 75 cc -General surgery consulted, Dr. Singh, appreciate recommendations # Possible pneumonia with Loculated Pleural Effusion #Sepsis secondary to pneumonia, resolved. #History of invasive lung cancer status postradiation stage IV Assessment: Meets SIRS criteria (WBC: 18, HR 136, CT scan showed left basilar infiltrate most likely secondary to pneumonia with loculated pleural effusion suspected infection (pneumonia), lactic acid 2.3. Pro-Vasquez within normal limits Plan: -Blood Culture Pendign - Rocefin 1gm IV Qday - Azithromycin PO Qday - Consider thoracentesis - Follow in o/p with the oncology team #CAROLYN, kelley pre-renal #Dehydration #Mild Hyponatremia, Hypo-osmolar CAROLYN, likely pre-renal as BUN was elevated w/ increas in Cr >0.3 and BUN/Cr 27 indicating pre-renal, likely hypovolemia/dehydration given poor oral intake and nausea w/ vomiting. Diagnostics: Na (09/11/2024) 130-->133 Plan: - Maintainance IVF of 75 mL/Hr - Strict in and out - IV fluid repletion, monitor Na correction carefully - Avoid rapid correction - Daily CMP #Normocytic Anemia Likely secodnary to anemia of chronic disease given history of cancer and previous radition in 2023 vs early iron deficiency can not be ruled out as patient has a SBO vs less likely secondary to hemolytic process. Denied SOB or palpipations Plan -No acute intervetion -continue to monitor Hgb>7 Hospital Maintenance: FEN: NPO & Normal Saline Maintenance DVT ppx: Heparin Sq GI ppx: Protonix IV lines: PIV Rueda: None Code status: Full code - The patient's plan was discussed with attending Dr. Christie Pastrana MD PGY1 Internal Medicine
[2024-09-12] MEDS: SODIUM CHLORIDE 0.9% 1000 ML 1,000 ML 75 ML IV (14:14)
[2024-09-12] MEDS: AZITHROMYCIN INJ 500 MG in SODIUM CHLORIDE 0.9% 250 ML 250 ML 250 MG IV (20:40)
[2024-09-12] MEDS: cefTRIAXone/D5w 1gm IV premix 1 GM/50 ML BAG IV (20:47)
[2024-09-13] VITALS (8 sets, daily range): BP systolic 104–146; BP diastolic 67–83; PULSE 101–111; RESP 16–20; TEMP 36.4–37.1; O2SAT 93–97; BMI 18.2
[2024-09-13 05:35] LABS: Basophils % (Auto) 0 % (0-2.5); Eosinophils % (Auto) 0 % (0-10); Immature Granulocytes % (Auto) 1 % (0-0); Immature Granulocytes Auto 0.08 Thou/mm3 (0.00-0.00); Lymphocytes # (Auto) 0.6 Thou/mm3 (1.0-4.8); Lymphocytes % (Auto) 4 % (10-50); Mean Corpuscular HGB Conc 32.3 g/dl (31.0-37.0); Mean Corpuscular Hemoglobin 27.8 pg (25.0-35.0); Mean Corpuscular Volume 86 fL (80-100); Monocytes % (Auto) 7 % (0-12); Neutrophils # (Auto) 13.5 Thou/mm3 (1.8-7.7); Neutrophils % (Auto) 89 % (37-80); Nucleated Red Blood Cell % 0 /100 WBC (0); Platelet Count 278 Thou/mm3 (140-440); RDW Standard Deviation 44.2 fL (35.1-43.9); White Blood Count 15.3 Thou/mm3 (3.8-10.6)
[2024-09-13] MEDS: SODIUM CHLORIDE 0.9% 1000 ML 1,000 ML 75 ML IV (05:49)
[2024-09-13] MEDS: HEPARIN SOD INJ 5000 UNIT/ML VIAL SC (05:50)
[2024-09-13 06:22] LABS: Alanine Aminotransferase < 7 U/L (10-49); Albumin, Serum 3.3 gm/dL (3.4-4.8); Albumin/Globulin Ratio 0.9 (1.2-2.2); Alkaline Phosphatase 90 U/L (46-116); Anion Gap 12 (7-16); Aspartate Amino Transferase 11 U/L (0-34); BUN/Creatinine Ratio 28 Ratio (12-20); Bilirubin,Total 0.3 mg/dL (0.3-1.2); Blood Urea Nitrogen 22 mg/dL (9-23); Calcium 8.7 mg/dL (8.3-10.6); Calcium (Corrected) 9.3 mg/dL (8.5-10.1); Carbon Dioxide 23.9 mMol/L (20.0-31.0); Chloride 103 mMol/L (98-107); Creatinine (Component) 0.8 mg/dL (0.6-1.3); Estimated Creatinine Clearance 63.9 mL/min (>60); Globulin 3.5 gm/dL (2.3-3.5); Glucose 95 mg/dL (74-106); Magnesium 1.9 mg/dL (1.6-2.6); Osmolality,Calculated 280 (275-295); Phosphorous 2.9 mg/dL (2.4-5.1); Potassium 3.6 mMol/L (3.4-5.1); Sodium 139 mMol/L (136-145); Total Protein 6.8 gm/dL (5.7-8.2); eGFR > 60 See Note
[2024-09-13] MEDS: POTASSIUM CHLORIDE 10% 20 MEQ/15 ML UDC 40 MEQ PO (07:45)
[2024-09-13] MEDS: Magnesium Sulfate 2 GM Ivpb 2 GM/50 ML BAG IV (07:45)
[2024-09-13] MEDS: PANTOPRAZOLE INJ 40 MG VIAL IVP ×2 (08:39→20:23)
--- NOTE | 2024-09-13 14:55 | ESPR_ITS ---
<Statement entered by April Soriano MD - 09/17/24 13:00> I reviewed above note and agree with findings and plans. I have also personally examined the patient with medicine team and went over assessment and plan with medical team including digital marketing intern and resident physician. Documentation for date of: 09/13/24 Senior resident attestation: Patient evaluated and examined at the bedside, plan of care discussed with rest of the team including my attending physician, except as noted. Quresh PGY2 Subjective Subjective Interval history: Overnight patient had 2 bowel movements. Patient is passing gas. No emesis reported overnight. No pyrexia reported overnight. This morning after shift change patient had 400 cc via NG tube that appeared dark black with some blood noted at bedside as it traveled up the NG tube. A total of 650 cc via NG tube removed from stomach by 5 PM. Continue to have patient n.p.o. GI consulted, will follow outpatient. Please continue NG tube in place as there is still significant gastric content being removed. Patient was updated on lytic bone lesions on imaging which is new. Patient denied inflammatory bowel disease. Patient denied any abdominal surgeries. Maintence fluid increased to 100 cc w/ potassium. Repeat KUB. Exam Vital Signs Temp Pulse Resp BP Pulse Ox O2 Del Method 97.5 F 105 H 20 133/71 H 95 Room Air 09/13/24 12:00 09/13/24 14:35 09/13/24 14:35 09/13/24 12:00 09/13/24 14:35 09/13/24 12:00 Narrative Exam General Appearance: Alert & Oriented X3, male who is lying in bed in mild discomfort HEENT: Skull symmetrical and atraumatic. Conjunctivae pin and moist. Pupils equal, round, reactive to light and accommodation (PERRL). External ear without lesion or discharge. Straight, nares patient, mucosa pink, no discharge. No thyroid nodule appreciated. No cervical lymphadenopathy. Cardio: Normal Rate and Rhythm with S1 and S2 heart sounds. No murmurs or extra heart sounds auscultated. No bruits on carotid auscultation. No peripheral edema or cyanosis. Lungs: Symmetric with good expansion. Chest and back non-tender. Breath sounds vesicular without crackles, wheezing or rhonchi Abdomen: improved tender, Non-distended,hypo-reactive bowel. Neuro: Alert, cooperative, oriented to person, place, and time. Speech clear. CN grossly intact. Upper motor strength 5/5 and Lower motor strength 5/5. Sensation intact. Objective Labs 09/14/24 05:25 09/14/24 05:25 Labs: Laboratory Results - last 24 hr 09/13/24 04:10 WBC 15.3 H RBC 3.60 L Hgb 10.0 L Hct 31.0 L MCV 86 MCH 27.8 MCHC 32.3 RDW Std Deviation 44.2 H Plt Count 278 Neut % (Auto) 89 H Lymph % (Auto) 4 L Major % (Auto) 7 Eos % (Auto) 0 Baso % (Auto) 0 Neut # (Auto) 13.5 H Lymph # (Auto) 0.6 L Major # (Auto) 1.0 H Eos # (Auto) 0.0 Baso # (Auto) 0.0 Immature Gran # (Auto) 0.08 H Absolute Nucleated RBC 0.00 Immature Gran % 1 H Nucleated RBC % 0 Sodium 139 Potassium 3.6 D Chloride 103 Carbon Dioxide 23.9 Anion Gap 12 BUN 22 Creatinine 0.8 Estim Creat Clear Calc 63.9 eGFR > 60 BUN/Creatinine Ratio 28 H Glucose 95 Calculated Osmolality 280 Calcium 8.7 Corrected Calcium 9.3 Phosphorus 2.9 Magnesium 1.9 Total Bilirubin 0.3 AST 11 ALT < 7 L Alkaline Phosphatase 90 Total Protein 6.8 Albumin 3.3 L Globulin 3.5 Albumin/Globulin Ratio 0.9 L Quality Measures Quality Measures none Advance care planning discussed with:: patient and child Assessment & Plan Assessment Current Active Medications: Generic Name Dose Route Start Last Admin Trade Name Freq PRN Reason Stop Dose Admin Albuterol/Ipratropium 3 ml 09/11/24 23:22 Albuterol/Ipratropium (Duoneb) Rt Cherelle 3 Ml Nebu INH 10/12/24 02:59 Q4HRRT PRN Wheezing and SOB Sodium Chloride 1,000 mls @ 75 mls/hr 09/11/24 22:30 09/13/24 05:49 Ns IV 10/11/24 22:29 75 mls/hr .[id number] DANYELLE Administration Ceftriaxone Sodium/Dextrose 1 gm in 50 mls @ 100 mls/hr 09/12/24 21:00 09/12/24 20:47 Rocephin/D5w 1gm Iv Premix IV 09/18/24 22:24 100 mls/hr QDAY@2100 DANYELLE Administration Azithromycin 500 mg/ Sodium 250 mls @ 250 mls/hr 09/12/24 21:00 09/12/24 20:40 Chloride IV 09/18/24 22:25 250 mls/hr QDAY@2100 DANYELLE Administration Ondansetron HCl 4 mg 09/11/24 22:20 Ondansetron Inj 2 Mg/Ml Inj 2 Ml IV 10/11/24 22:19 Q6HR PRN NAUSEA OR VOMITING Protocol Pantoprazole Sodium 40 mg 09/13/24 21:00 Pantoprazole Inj 40 Mg Vial IVP 10/13/24 20:59 BID DANYELLE Plan Summary: An 84-year-old male patient with past medical history of COPD on oxygen at home unknown rate, stage IV lung cancer s/p radiation 2023, on hospice, and a recent history of SBO. Admitted on 09/11/2024 for SBO and sepsis secondary to pneumonia. #Recurrent Small Bowel Obstruction, improved #Intractable nausea and vomiting most likely secondary to SBO Patient previously admitted due to SBO that resolved spontaneously. Today presented with N/V for 1 week high-grade mechanical SBO on CT, last bowel movement was yesterday small amount of hard stool. Calcium was within normal limits, no significant history of opioid use, volume depletion (elevated BUN/Cr), mild lactic acidosis, history of recent SBO hospitalization. No previous surgeries. 09/13/2024:total of 650 cc of gastric fluid removed from 7 AM to 5 PM-->continue NG tube in place. NS 75-->increased to 100. Plan: -KUB Ordered -NS 100 cc - NPO, with aspiration precautions - Start the patient on pantoprazole 40 mg BID IV - Insert NG tube and low intermittent suction for gastric decompression -General surgery consulted, Dr. Singh, appreciate recommendations -Gastroenterology consulted, Dr. Guan, appreciate recommendations-->will follow outpatient. #Normocytic Anemia #GI blood loss Likely secodnary to anemia of chronic disease given history of cancer and previous radition in 2023 vs early iron deficiency can not be ruled out as patient has a SBO vs less likely secondary to hemolytic process. Patients Hgb has been stable given past medical history but there has been a mior drop in Hgb from yesterday, but diluation effect can not be ruled out. Upper GI can not be ruled. Plan -No acute intervetion -continue to monitor Hgb<7 -GI consulted, appreciate recommendations. # Possible pneumonia with Loculated Pleural Effusion #Sepsis secondary to pneumonia, resolved. #History of invasive lung cancer status postradiation stage IV #Leukocytosis Assessment: Meets SIRS criteria (WBC: 18, HR 136, CT scan showed left basilar infiltrate most likely secondary to pneumonia with loculated pleural effusion suspected infection (pneumonia), lactic acid 2.3. Pro-Vasquez within normal limits Plan: -Blood Culture Negative after 24 hours. - Rocefin 1gm IV Qday (09/12/2024) - Azithromycin IV Qday (09/12/2024) - Consider thoracentesis, patient was hospice - Follow in o/p with the oncology team #CAROLYN, likley pre-renal, improving #Dehydration #Mild Hyponatremia, Hypo-osmolar, improved CAROLYN, likely pre-renal as BUN was elevated w/ increas in Cr >0.3 and BUN/Cr 27 indicating pre-renal, likely hypovolemia/dehydration given poor oral intake and nausea w/ vomiting. Diagnostics: Na (09/11/2024) 130-->133-->(09/13/2024) Na 139 Plan: - Maintainance IVF of 100 mL/Hr - Strict in and out - IV fluid repletion, monitor Na correction carefully - Avoid rapid correction - Daily [facility] Hospital Maintenance: FEN: NPO & Normal Saline Maintenance, given patient had 650 cc of gastric fluid removed during 09/13/2024 from 7 am to 5 pm. DVT ppx: Heparin Sq GI ppx: Protonix IV lines: PIV Rueda: None Code status: Full code - The patient's plan was discussed with attending Dr. Soriano and Hoa Pastrana MD PGY1 Internal Medicine
--- NOTE | 2024-09-13 15:17 | PC.SS ---
Rounding: pending sx reccs and increase diet
--- NOTE | 2024-09-13 15:29 | PC.DIETICIAN ---
Dietitian note: Patient meets ASPEN criteria for Severe acute or chronic disease or condition related malnutrition due to significant wt loss, poor oral intake per family > 3months Thank you
--- NOTE | 2024-09-13 16:18 | XR_ITS ---
Examination: Abdomen AP single view Technique: AP portable supine abdomen, single view Exam date and time: September 13, 2024 1746 hrs. Comparison small bowel series September 14, 2024 Indications: Abdominal distention this week, small bowel obstruction pattern on CT abdomen pelvis September 11, 2024 Findings: Contrast in the colon Impression: Negative for small bowel obstruction
[2024-09-13] MEDS: POT CHL ADDITIVE 30 MEQ in SODIUM CHLORIDE 0.9% 1000 ML 1,000 ML 100 MEQ IV (17:10)
--- NOTE | 2024-09-13 18:57 | PD.IMCONS ---
HPI Data of Consult Requesting Physician: April Soriano MD Primary Care Provider: Minor Mcdowell MD Consult Narrative Reason for consult: small bowel obstruction History of present illness: 84 years of male being evaluated at the request of the internal medicine team for signs symptoms of small bowel obstruction patient has CT scan of the abdomen pelvis done with contrast which showed high-grade mechanical obstruction Since then patient had a small bowel follow-through which shows contrast in the right colon and no evidence of small bowel obstruction which has resolved Patient does have an NGT with copious secretions which some of them are blood-tinged I have been consulted Patient does have a history of lung carcinoma with multiple thoracentesis in the past from the left lung cc:: cc: April Soriano MD Review of Systems Review of Systems Systems Reviewed: All systems reviewed, normal except as documented Past Medical History Surgical History OTHER SURGICAL HX: As in the history of present illness Meds Home Medications and Allergies Home Medications ?Medication ?Instructions ?Recorded ?Confirmed ?Type lactulose 10 gram/15 mL oral 10 g PO QDAY 09/12/24 09/12/24 History solution (Enulose) latanoprost 0.005 % eye drops 1 drp Right eye HS 09/12/24 09/12/24 History lorazepam 0.5 mg tablet (Ativan) 0.5 mg PO QID PRN anxiety 09/12/24 09/12/24 History prochlorperazine maleate 10 mg 10 mg PO Q6H PRN nausea and 09/12/24 09/12/24 History tablet (Compazine) vomiting sucralfate 1 gram tablet 1 g PO BID 09/12/24 09/12/24 History timolol maleate 0.5 % eye drops 1 drp Right eye Q12H 09/12/24 09/12/24 History Allergies Allergy/AdvReac Type Severity Reaction Status Date / Time No Known Allergies Allergy Verified 09/03/24 10:06 Exam Vital Signs Temp Pulse Resp BP Pulse Ox O2 Del Method 98.4 F 102 H 18 104/81 93 L Room Air 09/13/24 16:00 09/13/24 16:00 09/13/24 16:00 09/13/24 16:00 09/13/24 16:00 09/13/24 12:00 Constitutional Comments: Chronically ill-appearing Routine Respiratory Exam Comments: Decreased breath sounds at the bases Routine Abdominal Exam Comments: Hypoactive bowel sounds Results Labs 09/13/24 04:10 09/13/24 04:10 Labs: Short CBC 09/13/24 Range/Units 04:10 WBC 15.3 H (3.8-10.6) Thou/mm3 Hgb 10.0 L (13.5-16.0) g/dL Hct 31.0 L (41.0-53.0) % Plt Count 278 (140-440) Thou/mm3 BMP 09/13/24 04:10 Sodium 139 Potassium 3.6 D Chloride 103 Carbon Dioxide 23.9 BUN 22 Creatinine 0.8 Glucose 95 Calcium 8.7 Liver Function 09/13/24 Range/Units 04:10 Total Bilirubin 0.3 (0.3-1.2) mg/dL AST 11 (0-34) U/L ALT < 7 L (10-49) U/L Alkaline Phosphatase 90 (46-116) U/L Albumin 3.3 L (3.4-4.8) gm/dL Assessment and Plan Additional Assessment & Plan Additional Plan: Small bowel obstruction resolving Recommendations Before pulling the NGT out I will clamp it for about 6 to 8 hours make sure patient has no nausea vomiting If none NG tube can be pulled out Further workup if necessary from a GI viewpoint can be done as an outpatient Thank you for the opportunity to participate in care of this patient
[2024-09-13] MEDS: AZITHROMYCIN INJ 500 MG in SODIUM CHLORIDE 0.9% 250 ML 250 ML 250 MG IV (20:24)
[2024-09-13] MEDS: cefTRIAXone/D5w 1gm IV premix 1 GM/50 ML BAG IV (20:24)
[2024-09-14] VITALS (8 sets, daily range): BP systolic 119–135; BP diastolic 74–81; PULSE 93–111; RESP 18–22; TEMP 36.1–37.8; O2SAT 93–97
[2024-09-14] MEDS: POT CHL ADDITIVE 30 MEQ in SODIUM CHLORIDE 0.9% 1000 ML 1,000 ML 100 MEQ IV ×2 (03:58→16:30)
[2024-09-14 06:04] LABS: Basophils % (Auto) 0 % (0-2.5); Eosinophils % (Auto) 0 % (0-10); Hematocrit 29.1 % (41.0-53.0); Hemoglobin 9.4 g/dL (13.5-16.0); Immature Granulocytes % (Auto) 1 % (0-0); Immature Granulocytes Auto 0.12 Thou/mm3 (0.00-0.00); Lymphocytes # (Auto) 0.4 Thou/mm3 (1.0-4.8); Lymphocytes % (Auto) 3 % (10-50); Mean Corpuscular HGB Conc 32.3 g/dl (31.0-37.0); Mean Corpuscular Hemoglobin 27.7 pg (25.0-35.0); Mean Corpuscular Volume 86 fL (80-100); Monocytes # (Auto) 0.8 Thou/mm3 (0.0-0.8); Monocytes % (Auto) 6 % (0-12); Neutrophils # (Auto) 12.7 Thou/mm3 (1.8-7.7); Neutrophils % (Auto) 90 % (37-80); Nucleated Red Blood Cell % 0 /100 WBC (0); Platelet Count 284 Thou/mm3 (140-440); RDW Standard Deviation 45.1 fL (35.1-43.9); Red Blood Count 3.39 Miln/mm3 (4.50-5.90); White Blood Count 14.1 Thou/mm3 (3.8-10.6)
[2024-09-14 06:37] LABS: Alanine Aminotransferase < 7 U/L (10-49); Albumin, Serum 3.1 gm/dL (3.4-4.8); Alkaline Phosphatase 81 U/L (46-116); Anion Gap 13 (7-16); Aspartate Amino Transferase < 10 U/L (0-34); BUN/Creatinine Ratio 21 Ratio (12-20); Bilirubin,Total 0.3 mg/dL (0.3-1.2); Blood Urea Nitrogen 15 mg/dL (9-23); Calcium 8.8 mg/dL (8.3-10.6); Calcium (Corrected) 9.5 mg/dL (8.5-10.1); Carbon Dioxide 22.3 mMol/L (20.0-31.0); Chloride 106 mMol/L (98-107); Creatinine (Component) 0.7 mg/dL (0.6-1.3); Globulin 3.2 gm/dL (2.3-3.5); Glucose 105 mg/dL (74-106); Magnesium 1.9 mg/dL (1.6-2.6); Osmolality,Calculated 282 (275-295); Phosphorous 2.3 mg/dL (2.4-5.1); Potassium 3.6 mMol/L (3.4-5.1); Sodium 141 mMol/L (136-145); Total Protein 6.3 gm/dL (5.7-8.2); eGFR > 60 See Note
[2024-09-14] MEDS: PANTOPRAZOLE INJ 40 MG VIAL IVP ×2 (09:40→20:48)
--- NOTE | 2024-09-14 11:40 | PC.SS ---
Bong Mccormack is a 84-year-old male admitted to [facility] for SBO. SS conducted bedside contact with the patient to complete initial assessment and to discuss discharge planning.? Patient dtr Luna Castillo [phone] confirmed demographic information. She identifies herself as his surrogate decision maker. Patient resides at home with his family. Pt is typically able to complete all ADL?s independently, utilizes a walking stick for ambulation. Pts PCP is Dr. Mcdowell [facility] (last visit September 06) and pharmacy of choice is [email or web address]. DC options discussed and they wish for pt to return home. Pt family will provide transportation upon DC. No further intervention required at this time, social sciences research scientist would be available to address any further concerns. DC Plan: Home Contact: Luna Quick
--- NOTE | 2024-09-14 11:46 | XR_ITS ---
Examination: Abdomen AP single view Technique: AP portable supine abdomen, single view Exam date and time: September 14, 2024 1157 hours Comparison small bowel series September 03, 2024 INDICATIONS:: Abdominal pain and distention this week, small bowel obstruction pattern on CT abdomen pelvis September 11, 2024, abdominal pain today FINDINGS: Contrast in the colon Minimally air distended small bowel loops No free air Orogastric tube in the stomach IMPRESSION: Mild small bowel ileus pattern
--- NOTE | 2024-09-14 13:15 | ESPR_ITS ---
<Statement entered by April Soriano MD - 09/17/24 13:01> I reviewed above note and agree with findings and plans. I have also personally examined the patient with medicine team and went over assessment and plan with medical team including statistics intern and resident physician. Documentation for date of: 09/14/24 Senior resident attestation: Patient evaluated and examined at the bedside, plan of care discussed with rest of the team including my attending physician, except as noted. Quresh PGY2 Subjective Subjective Interval history: No overnight events. Overnight, patient had 200 cc from NG tube. 150 cc after shift change. NG tube clamped. Denied nausea or vomiting. Patient tolerated jello. Advance to clear liquids, advance as tolerated. 2 bowel movement reported for 09/13/2024. Repeat KUB Repeat showed ileus, no obstruction noted. NS w/ 30 meq @ 70 cc still on board, discontnue overnight if pateint tolerates diet well. Plan for discharge within the next 24 hours. Exam Vital Signs Temp Pulse Resp BP Pulse Ox O2 Del Method 97.2 F 107 H 18 132/81 H 95 Room Air 09/14/24 11:55 09/14/24 11:55 09/14/24 11:55 09/14/24 11:55 09/14/24 11:55 09/14/24 11:55 Narrative Exam General Appearance: Alert & Oriented X3, thin male who is lying in bed in no acute distress HEENT: Skull symmetrical and atraumatic. Conjunctivae pin and moist. Pupils equal, round, reactive to light and accommodation (PERRL). External ear without lesion or discharge. Straight, nares patient, mucosa pink, no discharge. No thyroid nodule appreciated. No cervical lymphadenopathy. Cardio: Normal Rate and Rhythm with S1 and S2 heart sounds. No murmurs or extra heart sounds auscultated. No bruits on carotid auscultation. No peripheral edema or cyanosis. Lungs: Symmetric with good expansion. Chest and back non-tender. Breath sounds vesicular without crackles, wheezing or rhonchi Abdomen: Non-tender, Non-distended, hyperreactive bowel sounds. Neuro: Alert, cooperative, oriented to person, place, and time. Speech clear. CN grossly intact. Upper motor strength 5/5 and Lower motor strength 5/5. Sensation intact. Objective Labs 09/15/24 05:35 09/15/24 05:35 Labs: Laboratory Results - last 24 hr 09/14/24 05:25 WBC 14.1 H RBC 3.39 L Hgb 9.4 L Hct 29.1 L MCV 86 MCH 27.7 MCHC 32.3 RDW Std Deviation 45.1 H Plt Count 284 Neut % (Auto) 90 H Lymph % (Auto) 3 L Ford % (Auto) 6 Eos % (Auto) 0 Baso % (Auto) 0 Neut # (Auto) 12.7 H Lymph # (Auto) 0.4 L Ford # (Auto) 0.8 Eos # (Auto) 0.0 Baso # (Auto) 0.0 Immature Gran # (Auto) 0.12 H Absolute Nucleated RBC 0.00 Immature Gran % 1 H Nucleated RBC % 0 Sodium 141 Potassium 3.6 Chloride 106 Carbon Dioxide 22.3 Anion Gap 13 BUN 15 Creatinine 0.7 Estim Creat Clear Calc 73.0 eGFR > 60 BUN/Creatinine Ratio 21 H Glucose 105 Calculated Osmolality 282 Calcium 8.8 Corrected Calcium 9.5 Phosphorus 2.3 L Magnesium 1.9 Total Bilirubin 0.3 AST < 10 ALT < 7 L Alkaline Phosphatase 81 Total Protein 6.3 Albumin 3.1 L Globulin 3.2 Albumin/Globulin Ratio 1.0 L Quality Measures Quality Measures none Advance care planning discussed with:: patient and child Assessment & Plan Assessment Current Active Medications: Generic Name Dose Route Start Last Admin Trade Name Freq PRN Reason Stop Dose Admin Albuterol/Ipratropium 3 ml 09/11/24 23:22 Albuterol/Ipratropium (Duoneb) Rt Cherelle 3 Ml Nebu INH 10/12/24 02:59 Q4HRRT PRN Wheezing and SOB Ceftriaxone Sodium/Dextrose 1 gm in 50 mls @ 100 mls/hr 09/12/24 21:00 09/13/24 20:24 Rocephin/D5w 1gm Iv Premix IV 09/18/24 22:24 100 mls/hr QDAY@2100 DANYELLE Administration Azithromycin 500 mg/ Sodium 250 mls @ 250 mls/hr 09/12/24 21:00 09/13/24 20:24 Chloride IV 09/18/24 22:25 250 mls/hr QDAY@2100 DANYELLE Administration Potassium Chloride 30 meq/ 1,015 mls @ 100 mls/hr 09/13/24 16:15 09/14/24 03:58 Sodium Chloride IV 09/14/24 22:41 100 mls/hr .[id number] DANYELLE Administration Ondansetron HCl 4 mg 09/11/24 22:20 Ondansetron Inj 2 Mg/Ml Inj 2 Ml IV 10/11/24 22:19 Q6HR PRN NAUSEA OR VOMITING Protocol Pantoprazole Sodium 40 mg 09/13/24 21:00 09/14/24 09:40 Pantoprazole Inj 40 Mg Vial IVP 10/13/24 20:59 40 mg BID DANYELLE Administration Plan Summary: An 84-year-old male patient with past medical history of COPD on oxygen at home unknown rate, stage IV lung cancer s/p radiation 2023, on hospice, and a recent history of SBO. Admitted on 09/11/2024 for SBO and sepsis secondary to pneumonia. #Recurrent Small Bowel Obstruction, improved #Intractable nausea and vomiting most likely secondary to SBO Patient previously admitted due to SBO that resolved spontaneously. Today presented with N/V for 1 week high-grade mechanical SBO on CT, last bowel movement was yesterday small amount of hard stool. Calcium was within normal limits, no significant history of opioid use, volume depletion (elevated BUN/Cr), mild lactic acidosis, history of recent SBO hospitalization. No previous surgeries. 09/13/2024:total of 650 cc of gastric fluid removed from 7 AM to 5 PM-->continue NG tube in place. NS 75-->increased to 100. 09/14/2024: overnight NG 200 cc and this morning after shift change 150 cc--> clamp now s/p 6 hrs, advance diet to clear liquids-->remove if no vomiting after eating Plan: -NS 100 cc - NPO, with aspiration precautions - Start the patient on pantoprazole 40 mg BID IV - Insert NG tube and low intermittent suction for gastric decompression-->Clamped, advancing diet, if patient tolerates diet, ok to remove. -General surgery consulted, Dr. Singh, appreciate recommendations -Gastroenterology consulted, Dr. Guan, appreciate recommendations-->will follow outpatient. #Normocytic Anemia #GI blood loss, stable Likely secodnary to anemia of chronic disease given history of cancer and previous radition in 2023 vs early iron deficiency can not be ruled out as patient has a SBO vs less likely secondary to hemolytic process. Patients Hgb has been stable given past medical history but there has been a mior drop in Hgb from yesterday, but diluation effect can not be ruled out. Upper GI can not be ruled. Plan -No acute intervetion -continue to monitor Hgb<7 -GI consulted, appreciate recommendations. # Possible pneumonia with Loculated Pleural Effusion #Sepsis secondary to pneumonia, resolved. #History of invasive lung cancer status postradiation stage IV #Leukocytosis Assessment: Meets SIRS criteria (WBC: 18, HR 136, CT scan showed left basilar infiltrate most likely secondary to pneumonia with loculated pleural effusion suspected infection (pneumonia), lactic acid 2.3. Pro-Vasquez within normal limits Plan: -Blood Culture Negative after 48 hours. - Rocefin 1gm IV Qday (09/12/2024) - Azithromycin IV Qday (09/12/2024-09/15/2024) - Consider thoracentesis, patient was hospice - Follow in o/p with the oncology team #CAROLYN, likley pre-renal, resolved. #Dehydration, improved #Mild Hyponatremia, Hypo-osmolar, improved CAROLYN, likely pre-renal as BUN was elevated w/ increas in Cr >0.3 and BUN/Cr 27 indicating pre-renal, likely hypovolemia/dehydration given poor oral intake and nausea w/ vomiting. Diagnostics: Na (09/11/2024) 130-->133-->(09/13/2024) Na 141 Plan: - Maintainance IVF of 100 mL/Hr - Strict in and out Hospital Maintenance: FEN: NPO & Normal Saline Maintenance, given patient had 150 cc of gastric fluid removed during 09/14/2024, likely to remove NG tube if patient tolerates diet DVT ppx: Heparin Sq GI ppx: Protonix IV lines: PIV Rueda: None Code status: Full code - The patient's plan was discussed with attending Dr. Soriano and Hoa Pastrana MD PGY1 Internal Medicine
[2024-09-14] MEDS: AZITHROMYCIN INJ 500 MG in SODIUM CHLORIDE 0.9% 250 ML 250 ML 250 MG IV (20:47)
[2024-09-14] MEDS: cefTRIAXone/D5w 1gm IV premix 1 GM/50 ML BAG IV (20:47)
[2024-09-15] VITALS (11 sets, daily range): BP systolic 108–142; BP diastolic 71–78; PULSE 69–117; RESP 17–20; TEMP 36.1–39.2; O2SAT 92–95
[2024-09-15 06:27] LABS: Basophils % (Auto) 0 % (0-2.5); Eosinophils % (Auto) 0 % (0-10); Hemoglobin 9.2 g/dL (13.5-16.0); Immature Granulocytes % (Auto) 1 % (0-0); Immature Granulocytes Auto 0.07 Thou/mm3 (0.00-0.00); Lymphocytes # (Auto) 0.4 Thou/mm3 (1.0-4.8); Lymphocytes % (Auto) 4 % (10-50); Mean Corpuscular HGB Conc 32.9 g/dl (31.0-37.0); Mean Corpuscular Hemoglobin 27.2 pg (25.0-35.0); Mean Corpuscular Volume 83 fL (80-100); Monocytes # (Auto) 0.9 Thou/mm3 (0.0-0.8); Monocytes % (Auto) 7 % (0-12); Neutrophils # (Auto) 11.2 Thou/mm3 (1.8-7.7); Neutrophils % (Auto) 89 % (37-80); Nucleated Red Blood Cell % 0 /100 WBC (0); Platelet Count 304 Thou/mm3 (140-440); RDW Standard Deviation 44.1 fL (35.1-43.9); Red Blood Count 3.38 Miln/mm3 (4.50-5.90); White Blood Count 12.6 Thou/mm3 (3.8-10.6)
[2024-09-15 06:48] LABS: Alanine Aminotransferase < 7 U/L (10-49); Alkaline Phosphatase 73 U/L (46-116); Anion Gap 8 (7-16); Aspartate Amino Transferase 10 U/L (0-34); BUN/Creatinine Ratio 14 Ratio (12-20); Bilirubin,Total 0.3 mg/dL (0.3-1.2); Blood Urea Nitrogen 10 mg/dL (9-23); Calcium 8.7 mg/dL (8.3-10.6); Calcium (Corrected) 9.5 mg/dL (8.5-10.1); Carbon Dioxide 27.4 mMol/L (20.0-31.0); Chloride 104 mMol/L (98-107); Creatinine (Component) 0.7 mg/dL (0.6-1.3); Globulin 3.1 gm/dL (2.3-3.5); Glucose 161 mg/dL (74-106); Magnesium 1.6 mg/dL (1.6-2.6); Osmolality,Calculated 279 (275-295); Phosphorous 1.7 mg/dL (2.4-5.1); Potassium 3.4 mMol/L (3.4-5.1); Sodium 139 mMol/L (136-145); Total Protein 6.1 gm/dL (5.7-8.2); eGFR > 60 See Note
[2024-09-15] MEDS: PANTOPRAZOLE INJ 40 MG VIAL IVP ×2 (08:28→20:33)
[2024-09-15] MEDS: POTASSIUM CHLORIDE 10% 20 MEQ/15 ML UDC 40 MEQ PO (08:29)
[2024-09-15] MEDS: NAPH,KPH MBDB 1 PACKET (1.5 GM) PO (08:29)
[2024-09-15] MEDS: Magnesium Sulfate 2 GM Ivpb 2 GM/50 ML BAG IV (08:29)
--- NOTE | 2024-09-15 13:50 | ESPR_ITS ---
<Statement entered by April Soriano MD - 09/21/24 13:47> I reviewed above note and agree with findings and plans. I have also personally examined the patient with medicine team and went over assessment and plan with medical team including music industry internship and resident physician. Documentation for date of: 09/15/24 Senior resident attestation: Patient is an 84-year-old male past medical history of metastatic lung cancer, stage IV, received radiotherapy for metastatic lesion to spine, was on hospice, followed by radiation oncologist Dr. Hanson, was on hospice prior to arrival to the ER with chief complaint of intractable nausea vomiting and abdominal discomfort. Patient was found to have high-grade mechanical SBO on abdominal imaging. Patient did have bowel movements overnight but was not able to tolerate p.o. diet. General surgery was consulted Dr Thompson followed the patient. Gastrografin series showed residual contrast in the colon 24 hours after the study, partial SBO, gradually improving. #High-grade mechanical SBO?improving- Patient NG tube on low intermittent suction initially, with high output but later was discontinued and started on clear liquid diet. #Sepsis secondary to pneumonia?resolved #Pleural effusion, likely due to metastasis versus parapneumonic, no respiratory distress at the moment, we will hold off on thoracentesis, given overall prognosis, will continue with antibiotics and conservative management. #CAROLYN, likely prerenal?resolved #Hyponatremia?resolved #Normocytic anemia, likely due to chronic disease Patient evaluated and examined at the bedside, plan of care discussed with rest of the team including my attending physician, except as noted. Quresh PGY2 Subjective Subjective Interval history: No ovenight events. Patient continues to have bowel movements, two reported overnight. NG tube removed. Clear liquid diet. Pending Dr. Thompson final recommendations for SBO given repeat KUB showed ileus and gastrografin still present in colon. Exam Vital Signs Temp Pulse Resp BP Pulse Ox O2 Del Method 98.6 F 99 18 124/73 95 Room Air 09/15/24 12:00 09/15/24 12:00 09/15/24 12:00 09/15/24 12:00 09/15/24 12:00 09/15/24 12:00 Narrative Exam General Appearance: Alert & Oriented X3, thin male who is lying in bed in no acute distress HEENT: Skull symmetrical and atraumatic. Conjunctivae pin and moist. Pupils equal, round, reactive to light and accommodation (PERRL). External ear without lesion or discharge. Straight, nares patient, mucosa pink, no discharge. No thyroid nodule appreciated. No cervical lymphadenopathy. Cardio: Normal Rate and Rhythm with S1 and S2 heart sounds. No murmurs or extra heart sounds auscultated. No bruits on carotid auscultation. No peripheral edema or cyanosis. Lungs: Symmetric with good expansion. Chest and back non-tender. Breath sounds vesicular without crackles, wheezing or rhonchi Abdomen: Non-tender, Non-distended, hyperreactive bowel sounds. Neuro: Alert, cooperative, oriented to person, place, and time. Speech clear. CN grossly intact. Upper motor strength 5/5 and Lower motor strength 5/5. Sensation intact. Objective Labs 09/16/24 05:16 09/16/24 05:16 Labs: Laboratory Results - last 24 hr 09/15/24 05:35 WBC 12.6 H RBC 3.38 L Hgb 9.2 L Hct 28.0 L MCV 83 MCH 27.2 MCHC 32.9 RDW Std Deviation 44.1 H Plt Count 304 Neut % (Auto) 89 H Lymph % (Auto) 4 L [place] % (Auto) 7 Eos % (Auto) 0 Baso % (Auto) 0 Neut # (Auto) 11.2 H Lymph # (Auto) 0.4 L [place] # (Auto) 0.9 H Eos # (Auto) 0.0 Baso # (Auto) 0.0 Immature Gran # (Auto) 0.07 H Absolute Nucleated RBC 0.00 Immature Gran % 1 H Nucleated RBC % 0 Sodium 139 Potassium 3.4 Chloride 104 Carbon Dioxide 27.4 Anion Gap 8 BUN 10 Creatinine 0.7 Estim Creat Clear Calc 73.0 eGFR > 60 BUN/Creatinine Ratio 14 Glucose 161 H D Calculated Osmolality 279 Calcium 8.7 Corrected Calcium 9.5 Phosphorus 1.7 L Magnesium 1.6 Total Bilirubin 0.3 AST 10 ALT < 7 L Alkaline Phosphatase 73 Total Protein 6.1 Albumin 3.0 L Globulin 3.1 Albumin/Globulin Ratio 1.0 L Quality Measures Quality Measures none Advance care planning discussed with:: patient and child Assessment & Plan Assessment Current Active Medications: Generic Name Dose Route Start Last Admin Trade Name Freq PRN Reason Stop Dose Admin Albuterol/Ipratropium 3 ml 09/11/24 23:22 Albuterol/Ipratropium (Duoneb) Rt Cherelle 3 Ml Nebu INH 10/12/24 02:59 Q4HRRT PRN Wheezing and SOB Ceftriaxone Sodium/Dextrose 1 gm in 50 mls @ 100 mls/hr 09/12/24 21:00 09/14/24 20:47 Rocephin/D5w 1gm Iv Premix IV 09/18/24 22:24 100 mls/hr QDAY@2100 DANYELLE Administration Azithromycin 500 mg/ Sodium 250 mls @ 250 mls/hr 09/12/24 21:00 09/14/24 20:47 Chloride IV 09/18/24 22:25 250 mls/hr QDAY@2100 DANYELLE Administration Ondansetron HCl 4 mg 09/11/24 22:20 Ondansetron Inj 2 Mg/Ml Inj 2 Ml IV 10/11/24 22:19 Q6HR PRN NAUSEA OR VOMITING Protocol Pantoprazole Sodium 40 mg 09/13/24 21:00 09/15/24 08:28 Pantoprazole Inj 40 Mg Vial IVP 10/13/24 20:59 40 mg BID DANYELLE Administration Plan Summary: An 84-year-old male patient with past medical history of COPD on oxygen at home unknown rate, stage IV lung cancer s/p radiation 2023, on hospice, and a recent history of SBO. Admitted on 09/11/2024 for SBO and sepsis secondary to pneumonia. #Recurrent Small Bowel Obstruction, improved #Intractable nausea and vomiting most likely secondary to SBO Patient previously admitted due to SBO that resolved spontaneously. Today presented with N/V for 1 week high-grade mechanical SBO on CT, last bowel movement was yesterday small amount of hard stool. Calcium was within normal limits, no significant history of opioid use, volume depletion (elevated BUN/Cr), mild lactic acidosis, history of recent SBO hospitalization. No previous surgeries. 09/13/2024:total of 650 cc of gastric fluid removed from 7 AM to 5 PM-->continue NG tube in place. NS 75-->increased to 100. 09/14/2024: overnight NG 200 cc and this morning after shift change 150 cc--> clamp now s/p 6 hrs, advance diet to clear liquids-->remove if no vomiting after eating 09/15/2024: pending final recommendation from surgery, continue clear liquid diet Plan: -Clear liquid diet - aspiration precautions - Start the patient on pantoprazole 40 mg BID IV -NG tubed removed. -General surgery consulted, Dr. Singh, appreciate recommendations -Gastroenterology consulted, Dr. Guan, appreciate recommendations-->will follow outpatient. #Normocytic Anemia #GI blood loss, stable Likely secodnary to anemia of chronic disease given history of cancer and previous radition in 2023 vs early iron deficiency can not be ruled out as patient has a SBO vs less likely secondary to hemolytic process. Patients Hgb has been stable given past medical history but there has been a mior drop in Hgb from yesterday, but diluation effect can not be ruled out. Upper GI can not be ruled. Plan -No acute intervetion -continue to monitor Hgb<7 -GI consulted, appreciate recommendations. # Possible pneumonia with Loculated Pleural Effusion #Sepsis secondary to pneumonia, resolved. #History of invasive lung cancer status postradiation stage IV #Leukocytosis Assessment: Meets SIRS criteria (WBC: 18, HR 136, CT scan showed left basilar infiltrate most likely secondary to pneumonia with loculated pleural effusion suspected infection (pneumonia), lactic acid 2.3. Pro-Vasquez within normal limits Plan: -Blood Culture Negative after 48 hours. - Rocefin 1gm IV Qday (09/12/2024) - Azithromycin IV Qday (09/12/2024-) - Consider thoracentesis, patient was hospice - Follow in o/p with the oncology team #CAROLYNaissatou pre-renal, resolved. #Dehydration, improved #Mild Hyponatremia, Hypo-osmolar, improved Hospital Maintenance: FEN:clear liquid, pending final recs form surgery DVT ppx: Heparin Sq GI ppx: Protonix IV lines: PIV Rueda: None Code status: Full code - The patient's plan was discussed with attending Dr. Soriano and Hoa Pastrana MD PGY1 Internal Medicine
--- NOTE | 2024-09-15 15:47 | PC.SS ---
rounding note: Patient admitted for SBO. Patient pending Dr. Thompson's rec's. Daughter is alt medical decision maker. Physician team states patient was on hospice prior to hospitalization. They may want to return home with hospice. SS will follow up with family to determine if they want to re start hospice services and verify which hospice. Possible d/c today or tomorrow.
--- NOTE | 2024-09-15 15:53 | PC.SS ---
follow up note: SS spoke to daughter, Luna, to update of discharge plans. Daughter states they do not want to continue with [facility]. Daughter states she already updated [facility] they no longer want their services. Daughter states they will need new 02 and a wheelchair for home. Possible home health services.
[2024-09-15] MEDS: LACTULOSE SYRUP 20 GM/30 ML UDC 30 GM PO (17:19)
[2024-09-15] MEDS: cefTRIAXone/D5w 1gm IV premix 1 GM/50 ML BAG IV (20:33)
[2024-09-15] MEDS: ACETAMINOPHEN SUPP 650 MG SUPP PR (20:58)
[2024-09-15] MEDS: AZITHROMYCIN INJ 500 MG in SODIUM CHLORIDE 0.9% 250 ML 250 ML 250 MG IV (21:46)
[2024-09-16] VITALS (9 sets, daily range): BP systolic 122–155; BP diastolic 70–88; PULSE 94–114; RESP 17–20; TEMP 36.3–37.1; O2SAT 92–100; BMI 18.2
[2024-09-16 06:04] LABS: Basophils % (Auto) 0 % (0-2.5); Eosinophils % (Auto) 0 % (0-10); Hemoglobin 9.3 g/dL (13.5-16.0); Immature Granulocytes % (Auto) 2 % (0-0); Immature Granulocytes Auto 0.19 Thou/mm3 (0.00-0.00); Lymphocytes # (Auto) 0.5 Thou/mm3 (1.0-4.8); Lymphocytes % (Auto) 4 % (10-50); Mean Corpuscular HGB Conc 32.1 g/dl (31.0-37.0); Mean Corpuscular Hemoglobin 27.5 pg (25.0-35.0); Mean Corpuscular Volume 86 fL (80-100); Monocytes # (Auto) 0.9 Thou/mm3 (0.0-0.8); Monocytes % (Auto) 7 % (0-12); Neutrophils # (Auto) 11.1 Thou/mm3 (1.8-7.7); Neutrophils % (Auto) 87 % (37-80); Nucleated Red Blood Cell % 0 /100 WBC (0); Platelet Count 276 Thou/mm3 (140-440); RDW Standard Deviation 45.1 fL (35.1-43.9); Red Blood Count 3.38 Miln/mm3 (4.50-5.90); White Blood Count 12.7 Thou/mm3 (3.8-10.6)
[2024-09-16 06:27] LABS: Alanine Aminotransferase < 7 U/L (10-49); Albumin/Globulin Ratio 0.9 (1.2-2.2); Alkaline Phosphatase 77 U/L (46-116); Anion Gap 7 (7-16); Aspartate Amino Transferase 14 U/L (0-34); BUN/Creatinine Ratio 14 Ratio (12-20); Bilirubin,Total 0.4 mg/dL (0.3-1.2); Blood Urea Nitrogen 10 mg/dL (9-23); Calcium 8.5 mg/dL (8.3-10.6); Calcium (Corrected) 9.3 mg/dL (8.5-10.1); Chloride 102 mMol/L (98-107); Creatinine (Component) 0.7 mg/dL (0.6-1.3); Globulin 3.4 gm/dL (2.3-3.5); Glucose 139 mg/dL (74-106); Magnesium 1.8 mg/dL (1.6-2.6); Osmolality,Calculated 276 (275-295); Phosphorous 2.4 mg/dL (2.4-5.1); Potassium 3.4 mMol/L (3.4-5.1); Sodium 138 mMol/L (136-145); Total Protein 6.4 gm/dL (5.7-8.2); eGFR > 60 See Note
--- NOTE | 2024-09-16 09:10 | XR_ITS ---
Examination: Abdomen AP single view Technique: AP portable supine abdomen, single view Exam date and time: September 16, 2024 0957 hours INDICATIONS: Patient unable to eat 2 weeks FINDINGS: Mild air and stool throughout the colon A few air distended small bowel loops in the left upper abdomen Air in the rectal region IMPRESSION: Nonobstructive bowel gas pattern Mild small bowel ileus
[2024-09-16] MEDS: PANTOPRAZOLE INJ 40 MG VIAL IVP ×2 (09:43→21:21)
[2024-09-16] MEDS: POT CHL ADDITIVE 30 MEQ in SODIUM CHLORIDE 0.9% 1000 ML 1,000 ML 75 MEQ IV (09:43)
--- NOTE | 2024-09-16 12:51 | PD.RESPRO ---
Documentation for date of: 09/16/24 Senior resident attestation: Patient is an 84-year-old male past medical history of metastatic lung cancer, stage IV, received radiotherapy for metastatic lesion to spine, was on hospice, followed by radiation oncologist Dr. Hanson, was on hospice prior to arrival to the ER with chief complaint of intractable nausea vomiting and abdominal discomfort. Patient was found to have high-grade mechanical SBO on abdominal imaging. Patient did have bowel movements overnight but was not able to tolerate p.o. diet. General surgery was consulted Dr Thompson followed the patient. Gastrografin series showed residual contrast in the colon 24 hours after the study, partial SBO, gradually improving. #High-grade mechanical SBO?improving- Patient NG tube on low intermittent suction initially, with high output but later was discontinued and started on clear liquid diet. gen surgery following, recommended advancing diet. #Sepsis secondary to pneumonia?resolving, on antibiotics ceftriaxone and azithromycin. #Pleural effusion, likely due to metastasis versus parapneumonic, no respiratory distress at the moment, we will hold off on thoracentesis, given overall prognosis, will continue with antibiotics and conservative management. #CAROLYN, likely prerenal?resolved #Hyponatremia?resolved #Normocytic anemia, likely due to chronic disease Patient evaluated and examined at the bedside, plan of care discussed with rest of the team including my attending physician, except as noted. Quresh PGY2 Subjective Subjective Interval history: Overnight, patient was febrile 102.6. Patient's vitals have remained hemodynamically stable and overall wbc count improving. Patient continues to have bowel movements. No nausea or vomiting reported. Advancing diet. No surgical intevention planed. Plan for patient to d/c within the next 24 hours if patient tolerates food. Exam Vital Signs Temp Pulse Resp BP Pulse Ox O2 Del Method 97.3 F 107 H 18 128/74 95 Room Air 09/16/24 12:00 09/16/24 12:00 09/16/24 12:00 09/16/24 12:00 09/16/24 12:09/16/24 12:00 Narrative Exam General Appearance: Alert & Oriented X3, thin male who is lying in bed in no acute distress HEENT: Skull symmetrical and atraumatic. Conjunctivae pin and moist. Pupils equal, round, reactive to light and accommodation (PERRL). External ear without lesion or discharge. Straight, nares patient, mucosa pink, no discharge. No thyroid nodule appreciated. No cervical lymphadenopathy. Cardio: Normal Rate and Rhythm with S1 and S2 heart sounds. No murmurs or extra heart sounds auscultated. No bruits on carotid auscultation. No peripheral edema or cyanosis. Lungs: Symmetric with good expansion. Chest and back non-tender. Breath sounds vesicular without crackles, wheezing or rhonchi Abdomen: Non-tender, Non-distended, hyperreactive bowel sounds. Neuro: Alert, cooperative, oriented to person, place, and time. Speech clear. CN grossly intact. Upper motor strength 5/5 and Lower motor strength 5/5. Sensation intact. Objective Labs 09/16/24 05:16 09/16/24 05:16 Labs: Laboratory Results - last 24 hr 09/16/24 05:16 WBC 12.7 H RBC 3.38 L Hgb 9.3 L Hct 29.0 L MCV 86 MCH 27.5 MCHC 32.1 RDW Std Deviation 45.1 H Plt Count 276 Neut % (Auto) 87 H Lymph % (Auto) 4 L [place] % (Auto) 7 Eos % (Auto) 0 Baso % (Auto) 0 Neut # (Auto) 11.1 H Lymph # (Auto) 0.5 L [place] # (Auto) 0.9 H Eos # (Auto) 0.0 Baso # (Auto) 0.0 Immature Gran # (Auto) 0.19 H Absolute Nucleated RBC 0.00 Immature Gran % 2 H Nucleated RBC % 0 Sodium 138 Potassium 3.4 Chloride 102 Carbon Dioxide 29.0 Anion Gap 7 BUN 10 Creatinine 0.7 Estim Creat Clear Calc 73.0 eGFR > 60 BUN/Creatinine Ratio 14 Glucose 139 H Calculated Osmolality 276 Calcium 8.5 Corrected Calcium 9.3 Phosphorus 2.4 Magnesium 1.8 Total Bilirubin 0.4 AST 14 ALT < 7 L Alkaline Phosphatase 77 Total Protein 6.4 Albumin 3.0 L Globulin 3.4 Albumin/Globulin Ratio 0.9 L Quality Measures Quality Measures none Advance care planning discussed with:: patient and child Assessment & Plan Assessment Current Active Medications: Generic Name Dose Route Start Last Admin Trade Name Freq PRN Reason Stop Dose Admin Acetaminophen 650 mg 09/15/24 20:31 09/15/24 20:58 Acetaminophen Supp 650 Mg Supp TX 10/15/24 20:30 650 mg Q4HR PRN Administration Pain 1-3 Or Fever > 100.3 Acetaminophen 650 mg 09/15/24 20:31 Acetaminophen 325 Mg Tablet PO 10/15/24 20:30 Q4HR PRN Fever >100.3 or pain 1-3 Albuterol/Ipratropium 3 ml 09/11/24 23:22 Albuterol/Ipratropium (Duoneb) Rt Cherelle 3 Ml Nebu INH 10/12/24 02:59 Q4HRRT PRN Wheezing and SOB Azithromycin 500 mg 09/16/24 21:00 Azithromycin 250 Mg Tablet PO 09/18/24 22:25 HS DANYELLE Docusate Sodium 100 mg 09/15/24 21:00 09/16/24 09:45 Docusate Sod 100 Mg Capsule PO 10/15/24 20:59 Not Given BID DANYELLE Protocol Ceftriaxone Sodium/Dextrose 1 gm in 50 mls @ 100 mls/hr 09/12/24 21:00 09/15/24 20:33 Rocephin/D5w 1gm Iv Premix IV 09/18/24 22:24 100 mls/hr QDAY@2100 DANYELLE Administration Potassium Chloride 30 meq/ 1,015 mls @ 75 mls/hr 09/16/24 08:30 09/16/24 09:43 Sodium Chloride IV 09/16/24 22:01 75 mls/hr .[id number] DANYELLE Administration Ondansetron HCl 4 mg 09/11/24 22:20 Ondansetron Inj 2 Mg/Ml Inj 2 Ml IV 10/11/24 22:19 Q6HR PRN NAUSEA OR VOMITING Protocol Pantoprazole Sodium 40 mg 09/13/24 21:00 09/16/24 09:43 Pantoprazole Inj 40 Mg Vial IVP 10/13/24 20:59 40 mg BID DANYELLE Administration Plan Summary: An 84-year-old male patient with past medical history of COPD on oxygen at home unknown rate, stage IV lung cancer s/p radiation 2023, on hospice, and a recent history of SBO. Admitted on 09/11/2024 for SBO and sepsis secondary to pneumonia. #High-grade mechanical SBO, improved #Intractable nausea and vomiting most likely secondary to SBO Patient previously admitted due to SBO that resolved spontaneously. Today presented with N/V for 1 week high-grade mechanical SBO on CT, last bowel movement was yesterday small amount of hard stool. Calcium was within normal limits, no significant history of opioid use, volume depletion (elevated BUN/Cr), mild lactic acidosis, history of recent SBO hospitalization. No previous surgeries. 09/13/2024:total of 650 cc of gastric fluid removed from 7 AM to 5 PM-->continue NG tube in place. NS 75-->increased to 100. 09/14/2024: overnight NG 200 cc and this morning after shift change 150 cc--> clamp now s/p 6 hrs, advance diet to clear liquids-->remove if no vomiting after eating 09/15/2024: pending final recommendation from surgery, continue clear liquid diet Plan: -Clear liquid diet, advancing diet - aspiration precautions - Start the patient on pantoprazole 40 mg BID IV -NG tubed removed. -General surgery consulted, Dr. Singh, appreciate recommendations -Gastroenterology consulted, Dr. Guan, appreciate recommendations-->will follow outpatient. #Normocytic Anemia likely chronic disease #GI blood loss, stable Likely secondary to anemia of chronic disease given history of cancer and previous radiation in 2023 vs early iron deficiency can not be ruled out as patient has a SBO vs less likely secondary to hemolytic process. Plan -No acute intervetion -continue to monitor Hgb<7 -GI consulted, appreciate recommendations. #Pneumonia with Loculated Pleural Effusion, likely #History of invasive lung cancer status postradiation stage IV #Sepsis secondary to pneumonia, resolved. #Leukocytosis, improving Assessment: Meets SIRS criteria WBC: 18, HR 136, CT scan showed left basilar infiltrate most likely secondary to pneumonia with loculated pleural effusion suspected infection (pneumonia), lactic acid 2.3. Pro-Vasquez within normal limits. Negative blood culture after 48 hours. Pneumonia likely parapneumonic given history of malignancy but no plan for thoracentis given stable vitals. Plan: - Rocefin 1gm IV Qday (09/12/2024) - Azithromycin IV Qday (09/12/2024-) - Consider thoracentesis, patient was hospice - Follow in o/p with the oncology team #CAROLYN, likley pre-renal, resolved. #Dehydration, improved #Mild Hyponatremia, Hypo-osmolar, improved Hospital Maintenance: FEN:Advanced diet, Regular diet DVT ppx: Heparin Sq GI ppx: Protonix IV lines: PIV Rueda: None Code status: Full code - The patient's plan was discussed with attending Dr. Soriano and Hoa Pastrana MD PGY1 Internal Medicine
--- NOTE | 2024-09-16 15:19 | PC.SS ---
SS met with pt dtr Luna Barkereloise [phone] at to discuss DC needs. Pt will no longer need Hospice servces a they are interested in seeking further treatment with Dr. Hanson. Cait with [facility] made aware. SS informed Luna all DME will be picked up from [facility] and we would need to order DME. Luna reports needing O2 and Wheelchair. SS requested O2 testing from [facility].
[2024-09-16] MEDS: AZITHROMYCIN 250 MG TABLET 500 MG PO (21:20)
[2024-09-16] MEDS: cefTRIAXone/D5w 1gm IV premix 1 GM/50 ML BAG IV (21:21)
[2024-09-17] VITALS: BP 129/69; PULSE 101; RESP 20; TEMP 36.6; O2SAT 100
[2024-09-17 04:00] VITALS: BP 123/70; PULSE 102; RESP 20; TEMP 36.4; O2SAT 98
[2024-09-17 05:37] LABS: Basophils % (Auto) 0 % (0-2.5); Eosinophils % (Auto) 0 % (0-10); Hematocrit 25.5 % (41.0-53.0); Immature Granulocytes % (Auto) 1 % (0-0); Immature Granulocytes Auto 0.08 Thou/mm3 (0.00-0.00); Lymphocytes # (Auto) 0.4 Thou/mm3 (1.0-4.8); Lymphocytes % (Auto) 4 % (10-50); Mean Corpuscular HGB Conc 33.3 g/dl (31.0-37.0); Mean Corpuscular Hemoglobin 27.3 pg (25.0-35.0); Mean Corpuscular Volume 82 fL (80-100); Monocytes # (Auto) 0.9 Thou/mm3 (0.0-0.8); Monocytes % (Auto) 8 % (0-12); Neutrophils # (Auto) 10.6 Thou/mm3 (1.8-7.7); Neutrophils % (Auto) 88 % (37-80); Nucleated Red Blood Cell % 0 /100 WBC (0); Platelet Count 270 Thou/mm3 (140-440); RDW Standard Deviation 44.6 fL (35.1-43.9); Red Blood Count 3.11 Miln/mm3 (4.50-5.90)
[2024-09-17 05:39] LABS: Hemoglobin 8.5 g/dL (13.5-16.0)
[2024-09-17 06:16] LABS: Anion Gap 7 (7-16); BUN/Creatinine Ratio 17 Ratio (12-20); Blood Urea Nitrogen 10 mg/dL (9-23); Carbon Dioxide 28.1 mMol/L (20.0-31.0); Chloride 100 mMol/L (98-107); Creatinine (Component) 0.6 mg/dL (0.6-1.3); Estimated Creatinine Clearance 85.1 mL/min (>60); Glucose 134 mg/dL (74-106); Osmolality,Calculated 271 (275-295); Potassium 3.7 mMol/L (3.4-5.1); Sodium 135 mMol/L (136-145); eGFR > 60 See Note
[2024-09-17 06:17] LABS: Alanine Aminotransferase < 7 U/L (10-49); Albumin, Serum 2.9 gm/dL (3.4-4.8); Albumin/Globulin Ratio 0.9 (1.2-2.2); Alkaline Phosphatase 92 U/L (46-116); Aspartate Amino Transferase 14 U/L (0-34); Bilirubin,Total 0.4 mg/dL (0.3-1.2); Calcium 8.3 mg/dL (8.3-10.6); Calcium (Corrected) 9.2 mg/dL (8.5-10.1); Globulin 3.1 gm/dL (2.3-3.5); Magnesium 1.8 mg/dL (1.6-2.6); Phosphorous 2.6 mg/dL (2.4-5.1)
[2024-09-17 07:24] VITALS: BP 118/68; PULSE 99; RESP 18; TEMP 36.3; O2SAT 97
[2024-09-17] MEDS: DOCUSATE SOD 100 MG CAPSULE PO (08:41)
[2024-09-17] MEDS: PANTOPRAZOLE INJ 40 MG VIAL IVP (08:55)
--- NOTE | 2024-09-17 09:27 | PC.NURSE ---
On 2L oxygen via [place] sats 96%. On room air patient sats dropped to 88%.
--- NOTE | 2024-09-17 10:10 | PC.SS ---
Patient needs a standard wheelchair for home. The patient and her family are requesting a wheel chair. Patients diagnosis creates mobility limitations that significantly impairs ability to participate in the patient?s activities of daily living either in their entirety or in a reasonable timeframe in the home and the patient?s mobility limitations cannot be sufficiently resolved with an appropriately fitted cane or walker. Also, the use of a manual wheelchair will sufficiently improve patients ability to participate in the activities of daily living in the home and the patient is willing to use the wheelchair that is provided in the home. The patient has some one in the home that is available, willing and able to provide assistance with the wheelchair.
[2024-09-17 11:22] VITALS: BP 113/63; PULSE 105; RESP 18; TEMP 36.4; O2SAT 98
[2024-09-17 13:51] VITALS: PULSE 107; RESP 18; RESP 20; O2SAT 97; O2SAT 98
--- NOTE | 2024-09-17 14:21 | PD.RESDS ---
Planned Discharge Date 09/17/24 DS: Providers Provider Date of admission: 09/11/24 22:19 Primary care physician: Minor Mcdowell MD Admitting Provider: Dex Demarco MD Attending Provider on Admission: April Soriano MD Consults: 09/12/24 00:15 Health [facility]ity Referral - Knowledge Deficit Routine Comment: Positive screening for knowledge deficit needs. 09/12/24 09:09 Consult to General Surgery Routine Comment: SBO Consulting Provider: Yasmin Thompson 09/13/24 11:28 Consult to Gastroenterology Urgent Comment: upper GI bleed & SBO recurrent Consulting Provider: Errol Guan 09/15/24 18:23 Referral Speech Therapy Routine Comment: Attending Provider on DC: Erin Pastrana MD Discharging Provider: Erin Pastrana MD DS: Diagnosis Problem List Completed Was Problem List Reviewed/Reconciled?: Yes Hospital Course Hospital Course Hospital course: Summary: Summary: An 84-year-old male patient with past medical history of COPD on oxygen at home unknown rate, stage IV lung cancer s/p radiation 2023, on hospice, and a recent history of SBO. Admitted on 09/11/2024 for SBO and sepsis secondary to pneumonia with pleural effusion likely complicated my pulmonary. No pleural effusion planed given overall poor prognosis. ER Course: In the ER, vital signs recorded as temp 97.7 F, HR 136 bpm, RR 19, BP 110/67 mmHg. Labs revealed WBC 18.3, Hgb 12.3, Na 130, K 4.5, BUN 40, Cr 1.5, baseline serum creatinine is 0.7. Glucose 146, lactic acid mildly elevated 2.3 most likely secondary to dehydration. EKG showed sinus tachycardia. Abdomen/pelvis CT demonstrated left lung base infiltrate which was seen in previous imaging. Also showed mild to moderate partially loculated left pleural effusion, and a high-grade mechanical small bowel obstruction. Recommendation made for follow-up Gastrografin small bowel series. The patient is being admitted for further evaluation and management. Hospital Course: Patient remained on NG tube when patient was admitted onto floors given high grade mechanical small bowel obstruction. NG tube remained in place for two days given copious amount of gastric conent removed even after two days, clear liquids advance on day three. No need for surgical intervention as SBO resolved. On admission, sepsis noted with end organ damge with CAROLYN, and pneumonia with pleural effusion likely parapneumonic complicated my pulmonary carcinoma. Treated with broad spectrum anti-biotics. Normocytic anemia likely secondary to anemia chronic disease. Fluid resucitation continued while patinet remained NPO, which overall improved CAROLYN given pre-renal presentation. Instructions: -Take Cefpodoxime 200 mg twice daily by mouth for 3 more days. -Please continue taking your home medication, stop the medication you are not taking. -Please follow up with your primary care provider within one week of discharge. -If your symptoms worsen, seek immediate medical attention and return to the nearest emergency room. -If you do not have a primary care provider, you can follow up at the [facility]. [address], [place] [address], #High-grade mechanical SBO, resolved #Intractable nausea and vomiting most likely secondary to SBO #Normocytic Anemia likely chronic disease #GI blood loss, stable #Pneumonia with Loculated Pleural Effusion, likely complicated by pulmonary carcinoma #History of invasive lung cancer status postradiation stage IV #Sepsis secondary to pneumonia, resolved. #Leukocytosis, improving #CAROLYN, likley pre-renal, resolved. #Dehydration, improved #Mild Hyponatremia, Hypo-osmolar, improved - The patient's plan was discussed with attending Dr. Soriano and senior residents Dr. Hoa Pastarna MD PGY1 Internal Medicine Senior Resident Attestation: Patient is an 84-year-old male past medical history of metastatic lung cancer, stage IV, received radiotherapy for metastatic lesion to spine, was on hospice, followed by radiation oncologist Dr. Hanson, was on hospice prior to arrival to the ER with chief complaint of intractable nausea vomiting and abdominal discomfort. Patient was found to have high-grade mechanical SBO on abdominal imaging. Patient did have bowel movements overnight but was not able to tolerate p.o. diet. General surgery was consulted Dr Thompson followed the patient. Gastrografin series showed residual contrast in the colon 24 hours after the study, partial SBO, gradually improving. Patient NG tube on low intermittent suction initially, with high output but later was discontinued and started on clear liquid diet. gen surgery following, recommended advancing diet. patient tolerated his diet, stable for discharge per general surgery, The patient is stable, ambulatory, afebrile and tolerating Per oral medications at the time of discharge. The patient understood and agreed to the treatment plan. #High-grade mechanical SBO - resolved #Sepsis secondary to pneumonia?resolving, on antibiotics ceftriaxone and azithromycin. #Pleural effusion, likely due to metastasis versus parapneumonic. #CAROLYN, likely prerenal?resolved #Hyponatremia?resolved #Normocytic anemia, likely due to chronic disease Patient evaluated and examined at the bedside, plan of care discussed with rest of the team including my attending physician, except as noted. Quresh PGY2 Time Spent with Patient Time attestation: Total time spent providing and/or coordinating discharge services: at least thirty minute of care and coordination Time spent: Greater than 30 minutes Exam Vital Signs Temp Pulse Resp BP Pulse Ox O2 Del Method O2 Flow Rate 97.5 F 105 H 18 113/63 98 Nasal Cannula 2 09/17/24 11:22 09/17/24 11:22 09/17/24 11:22 09/17/24 11:09/17/24 11:09/17/24 11:09/17/24 04:00 Narrative Exam General Appearance: Alert & Oriented X3, thin male who is lying in bed in no acute distress HEENT: Skull symmetrical and atraumatic. Conjunctivae pin and moist. Pupils equal, round, reactive to light and accommodation (PERRL). External ear without lesion or discharge. Straight, nares patient, mucosa pink, no discharge. No thyroid nodule appreciated. No cervical lymphadenopathy. Cardio: Normal Rate and Rhythm with S1 and S2 heart sounds. No murmurs or extra heart sounds auscultated. No bruits on carotid auscultation. No peripheral edema or cyanosis. Lungs: Symmetric with good expansion. Chest and back non-tender. Breath sounds vesicular with mild crackles Abdomen: Non-tender, Non-distended, Normal Reactive Bowel Sounds Neuro: Alert, cooperative, oriented to person, place, and time. Speech clear. CN grossly intact. Upper motor strength 5/5 and Lower motor strength 5/5. Sensation intact. Discharge Plan Plan Patient Disposition: HOME (Self Care) Disposition Comment: Admitted to Dr. Demarco Care Plan Goals: Instrucciones: -[place] Cefpodoxima 200 mg dos veces al d?a por v?a oral fauzia 3 d?as m?s. -Por favor contin?e tomando [facility], suspenda la medicaci?n que no est? tomando -Por favor, cornelia un seguimiento con [facility] proveedor de atenci?n primaria dentro de heather semana despu?s del livia. -Si gifty s?ntomas empeoran, busque atenci?n m?dica inmediata y regrese a la brittany de emergencias m?s cercana. -Si no tiene un proveedor de atenci?n primaria, puede realizar un seguimiento en el [facility] en [address], [place] [address], Tel?fono Instructions: -Take Cefpodoxime 200 mg twice daily by mouth for 3 more days. -Please continue taking your home medication, stop the medication you are not taking. -Please follow up with your primary care provider within one week of discharge. -If your symptoms worsen, seek immediate medical attention and return to the nearest emergency room. -If you do not have a primary care provider, you can follow up at the [facility] at [address], [place] [address], Prescriptions/Referrals Prescriptions/Med Rec: New cefpodoxime 200 mg tablet 200 mg PO BID 3 Days Qty: 6 0RF Rx Instructions: must administer with a meal/food Continued Hydrocodone/Acetaminophen * (NORCO 5/325 *) 1 TAB tablet 1 tab PO Q4H PRN (Reason: PAIN) Qty: 20 0RF Rx Instructions: FOR PAIN lactulose [Enulose] 10 gram/15 mL solution 10 g PO QDAY sucralfate 1 gram tablet 1 g PO BID Patient Comments: TOME 1 TABLETA POR V A ORAL DOS VECES AL D A EN EST MELODY VAC O FOR 30 DAYS prochlorperazine maleate [Compazine] 10 mg tablet 10 mg PO Q6H PRN (Reason: nausea and vomiting) lorazepam [Ativan] 0.5 mg tablet 0.5 mg PO QID PRN (Reason: anxiety) Rx Instructions: PT TAKES IN LIQUID FORM PER [facility] latanoprost 0.005 % drops 1 drp Right eye HS timolol maleate 0.5 % drops 1 drp Right eye Q12H Discontinued promethazine-DM 6.25-15 mg/5 mL syrup 10 ml PO Q6H PRN (Reason: cough) Patient Comments: TOME 10 MILLILITROS POR LA BOCA GÓMEZ VECES AL ADITHYA CUANDO SEA NECESARIO PARA TOZ POR 10 ZAMARRIPA prednisone 20 mg tablet 20 mg PO Q12H omeprazole 20 mg capsule,delayed release(DR/EC) 40 mg PO BID alprazolam 0.5 mg tablet 0.5 mg PO QDAY lorazepam [Ativan] 1 mg tablet 1 mg PO QID PRN (Reason: anxiety) Referrals: Minor Mcdowell MD [Primary Care Provider] - Clayton Hanson MD [Physician] - Patient/Caregiver Discharge Instructions Education Materials: Small Bowel Obstruction, Treating Pneumonia Print Language: Welsh Stand Alone Forms: [facility] Award Info., Patient Portal Info Letter Discharge Order Discharge Orders: Discharge (Routine); Ordered 09/17/24 Ordered By: Erin Pastrana Quality Discharge Quality Measures VTE prophylaxis
[2024-09-17 16:00] VITALS: BP 118/63; PULSE 108; RESP 18; TEMP 36.6; O2SAT 97
== END 2024-09-17 16:40 | disposition home or self-care (01) | DRG 871 ==
LOC: SERX 22:20 → SERHOLD 22:40 → S3SX 23:46
PROVIDERS: Physician Assistant; Student in an Organized Health Care Education/Training Program; Admitting Provider Internal Medicine; Emergency Provider Emergency Medicine; PCP Family Medicine; Visit Provider Internal Medicine
DX: A41.9 Sepsis, unspecified organism (principal); J18.9 Pneumonia, unspecified organism; K56.690 Other partial intestinal obstruction; C34.90 Malignant neoplasm of unspecified part of unspecified bronchus or lung; J90 Pleural effusion, not elsewhere classified; E87.20 Acidosis, unspecified; J44.0 Chronic obstructive pulmonary disease with (acute) lower respiratory infection; N17.9 Acute kidney failure, unspecified; E87.1 Hypo-osmolality and hyponatremia; E86.1 Hypovolemia; Z99.81 Dependence on supplemental oxygen; Z92.3 Personal history of irradiation; E86.0 Dehydration; Z87.891 Personal history of nicotine dependence; D63.0 Anemia in neoplastic disease
CPT/HCPCS: 36415; 74018; 74177; 74250; 80053; 82150; 83605; 83690; 83735; 84100; 84145; 84484; 85025; 87040; 87081; 92610; 93005; 94664; 94667; 96361; 96374; 99285; A4649; A4699; J0456; J0696; J1643; J2470; J2765; J3475; J3480; J7030; J7050; Q9967; A9270

== ENCOUNTER 2024-09-21 00:18 | Inpatient (IN) | payer MEDICARE, MEDICAID, SELFPAY ==
[2024-09-21] VITALS (11 sets, daily range): BP systolic 113–171; BP diastolic 69–108; PULSE 109–132; RESP 16–32; TEMP 36.4–37.2; O2SAT 92–96; BMI 17.9; BMI 20.4
--- NOTE | 2024-09-21 00:22 | EKG_ITS ---
[facility] Test Date: 2024-09-21 Pat Name: SHERMAN HAIRSTON Department: Room: - Gender: Male [employer]: : 1940 Requested By: ED Temporary Provider Order Number: [id number] Reading MD: ED Temporary Provider Measurements Intervals [place] Rate: 133 P: 70 FL: 119 QRS: 6 QRSD: 86 T: 84 QT: 300 QTc: 447 Interpretive Statements SINUS TACHYCARDIA WITH SHORT FL INTERVAL NONSPECIFIC ST & T-WAVE ABNORMALITY ABNORMAL RHYTHM ECG Compared to ECG 09/11/2024 20:38:48 Short FL interval now present T-wave abnormality now present Myocardial infarct finding no longer present /store/S0/[id number]/ecg/[id number].pdf
--- NOTE | 2024-09-21 00:37 | PD.EDRME ---
Rapid Medical Screening Exam RME Arrival date/time: 09/21/24 00:18 84 yo m present to ED for c/o ongoing nausea,vomiting I have greeted and performed a focused initial assessment of this patient. A comprehensive ED assessment and evaluation of the patient, analysis of all test results, and completion of the medical decision making process will be conducted by additional ED providers. Chief Complaint: Nausea/Vomiting/Diarrhea Time Seen by Provider: 09/21/24 00:27 Vital signs: Vital Signs Temperature 98.1 F 09/21/24 00:26 Pulse Rate 132 H 09/21/24 00:26 Respiratory Rate 18 09/21/24 00:26 Blood Pressure 113/69 09/21/24 00:26 Pulse Oximetry (%) 95 09/21/24 00:26 Oxygen Delivery Method Room Air 09/21/24 00:26
[2024-09-21 00:58] LABS: Basophils % (Auto) 0 % (0-2.5); Eosinophils % (Auto) 0 % (0-10); Hematocrit 30.9 % (41.0-53.0); Hemoglobin 10.6 g/dL (13.5-16.0); Immature Granulocytes % (Auto) 1 % (0-0); Immature Granulocytes Auto 0.07 Thou/mm3 (0.00-0.00); Lymphocytes # (Auto) 0.5 Thou/mm3 (1.0-4.8); Lymphocytes % (Auto) 4 % (10-50); Mean Corpuscular HGB Conc 34.3 g/dl (31.0-37.0); Mean Corpuscular Hemoglobin 27.3 pg (25.0-35.0); Mean Corpuscular Volume 80 fL (80-100); Monocytes # (Auto) 0.7 Thou/mm3 (0.0-0.8); Monocytes % (Auto) 6 % (0-12); Neutrophils # (Auto) 10.7 Thou/mm3 (1.8-7.7); Neutrophils % (Auto) 90 % (37-80); Nucleated Red Blood Cell % 0 /100 WBC (0); Platelet Count 450 Thou/mm3 (140-440); RDW Standard Deviation 41.3 fL (35.1-43.9); Red Blood Count 3.88 Miln/mm3 (4.50-5.90)
[2024-09-21 01:27] LABS: Alanine Aminotransferase 16 U/L (10-49); Albumin, Serum 3.6 gm/dL (3.4-4.8); Albumin/Globulin Ratio 0.9 (1.2-2.2); Alkaline Phosphatase 104 U/L (46-116); Anion Gap 9 (7-16); Aspartate Amino Transferase 22 U/L (0-34); BUN/Creatinine Ratio 30 Ratio (12-20); Bilirubin,Total 0.5 mg/dL (0.3-1.2); Blood Urea Nitrogen 27 mg/dL (9-23); Calcium 9.2 mg/dL (8.3-10.6); Calcium (Corrected) 9.5 mg/dL (8.5-10.1); Carbon Dioxide 28.3 mMol/L (20.0-31.0); Chloride 91 mMol/L (98-107); Creatinine (Component) 0.9 mg/dL (0.6-1.3); Estimated Creatinine Clearance 55.9 mL/min (>60); Glucose 150 mg/dL (74-106); Lipase 39 U/L (12-53); Osmolality,Calculated 265 (275-295); Potassium 3.6 mMol/L (3.4-5.1); Sodium 128 mMol/L (136-145); Thyroid Stimulating Hormone 2.17 uIU/mL (0.55-4.78); Total Protein 7.6 gm/dL (5.7-8.2); Troponin I < 0.020 ng/mL (0.0-0.045); eGFR > 60 See Note
--- NOTE | 2024-09-21 03:16 | XR_ITS ---
Examination: Abdomen AP single view Technique: AP portable supine abdomen, single view Exam date and time: September 21, 2024 0330 hrs. Indications: Nausea vomiting today Findings: Moderate to large amounts of air and stool throughout the colon No free air No obstruction Parenchymal disease left base Impression: Moderate to large amounts of air and stool throughout the colon Recommend PA lateral chest follow-up to assess for parenchymal disease left base
[2024-09-21] MEDS: SODIUM CHLORIDE 0.9% 1000 ML 1,000 ML 999 ML IV (03:33)
--- NOTE | 2024-09-21 05:30 | PC.NURSE ---
PT ALERT AND IN NO ACUTE DISTRESS, SON AT BEDSIDE. SON STATES THAT PATIENT LEFT OUR FACILITY AND APPROX 12HRS AFTER GETTING HOME PATIENT STARTED TO VOMIT AGAIN. PT AT THAT TIME REFUSED TO COME TO ER. PER SON PATIENT VOMITED FOR OVER 24HRS WITH NO INTAKE AND THEN BECAME CONFUSED AND STARTED HALLUCINATING. SON MADE THE DECISION TO BRING PATIENT TO THE ER. PATIENT AT ONE TIME WAS ON HOSPICE BUT STATES THAT IF SOMETHING SHOULD HAPPEN TO HIM THAT HE WANTS EVERYTHING DONE. PT WAITING FOR RE-EVALUATION FROM NEW ONCOMING ER MD, WILL CONTINUE WITH PLAN OF CARE
--- NOTE | 2024-09-21 07:13 | EDNOTE_ITS ---
Nausea/Vomit./Diarrhea-RME/HPI General Chief complaint: Nausea/Vomiting/Diarrhea Stated complaint: VOMITING, TACHYCARDIA Time Seen by Provider: 09/21/24 00:27 Arrival date/time: 09/21/24 00:18 Limitations: no limitations RME / HPI RME / HPI Narrative: 09/21/24 00:18 84 yo m present to ED for c/o ongoing nausea,vomiting I have greeted and performed a focused initial assessment of this patient. A comprehensive ED assessment and evaluation of the patient, analysis of all test results, and completion of the medical decision making process will be conducted by additional ED providers. DR. DAWSON MAIN ED EVALUATION: 84 year old male presents to the Emergency Department accompanied by his son with complaint of nausea and vomiting since Friday, 3 days ago. Patient was discharged on Friday and then Friday he started vomiting since. Per son, he cannot keep anything down, cannot sleep, and now became confused with visual hallucinations of seeing monsters. Son states that last time he ate was [place] baby food on Friday. Patient is also constipated. PMHx: Chronic Lung Cancer (Stage IV). Patient was recently admitted from 09/11/24 through 09/17/24 for the following: small bowel obstruction, sepsis, pneumonia, CAROLYN, hyponatremia. Social Hx: Former smoker. No alcohol or substance use. Related Data Home Medications ?Medication ?Instructions ?Recorded ?Confirmed lactulose 10 gram/15 mL oral 10 g PO QDAY 09/12/24 solution (Enulose) latanoprost 0.005 % eye drops 1 drp Right eye HS 09/1209/12/24 lorazepam 0.5 mg tablet (Ativan) 0.5 mg PO QID PRN anx iety 09/12/24 09/12/24 prochlorperazine maleate 10 mg 10 mg PO Q6H PRN nausea and 09/12/24 09/12/24 tablet (Compazine) vomiting sucralfate 1 gram tablet 1 g PO BID 09/12/24 09/12/24 timolol maleate 0.5 % eye drops 1 drp Right eye Q12H 0 09/12/24 09/12/24 Previous Rx's ?Medication ?Instructions ?Recorded Hydrocodone/Acetaminophen * (NORCO 1 tab PO Q4H PRN PA IN #20 tabs 10/29/15 5/325 *) Allergies Allergy/AdvReac Type Severity Reaction Status Date / Time No Known Allergies Allergy Verified 09/03/24 10:06 Review of Systems Review of Systems Systems Reviewed: All systems reviewed, normal except as documented Past Medical History Past Medical History RESPIRATORY: Positive Chronic Obstructive Pulmonary Disease (COPD), Asthma and Pneumonia MUSCULOSKELETAL: Positive Fractures ENT: Positive Retinal Detachment OTHER HISTORY: Positive Radiation Therapy, Cancer and Lung Cancer Family History FAMILY HISTORY: Positive Family Cancer Social History SMOKING STATUS: Former smoker SECOND HAND EXPOSURE: No SUBSTANCE USE: does not use ALCOHOL: Never ED Exam General Limitations: Present no limitations General appearance: Present alert, in no apparent distress and other (well developed male) Head Head exam: Present atraumatic, normocephalic and normal inspection Eye Eye exam: Present normal appearance, PERRL and EOMI ENT ENT exam: Present normal exam, normal oropharynx and mucous membranes moist Neck Neck exam: Present normal inspection, full ROM and trachea midline Chest Chest inspection: Present normal inspection and symmetric chest wall rise Respiratory Respiratory exam: Present normal lung sounds bilaterally Cardiovascular Cardiovascular exam: Present normal rhythm, tachycardia (hyperdynamic) and normal heart sounds; Absent systolic murmur or diastolic murmur Abdominal Exam Abdominal exam: Present soft, guarding (minimal guarding) and normal bowel sounds; Absent mass or pulsatile mass Extremities Exam Extremities exam: Present normal inspection and full ROM; Absent pedal edema Back Exam Back exam: Present normal inspection and full ROM Neurological Exam Neurological exam: Present alert and CN II-XII intact Expanded Neurological Exam Patient oriented to: Present person Cerebellar function: Present normal gait Motor strength - LUE: 5/5 Motor strength - RUE: 5/5 Motor strength - LLE: 5/5 Motor strength - RLE: 5/5 Skin Skin exam: Present warm, dry, intact and normal color Course Quality Measures none Orders Category Date Time Status Bedside COVID-19 Antigen Test NOW Care 09/21/24 12:35 Active COVID-19 Screening Questionnaire NOW Care 09/21/24 12:[address] Screening NOW Care 09/21/24 07:16 Active Decision to Admit X1 Care 09/21/24 12:23 Completed EKG (ED ONLY) *Do not use* NOW Care 09/21/24 00:22 Completed Insert IV STAT Care 09/21/24 01:24 Active Consult to Gastroenterology Stat Cons 09/21/24 12:[address] abdomen pelvis wo con Stat Exams 09/21/24 07:59 Completed CXRP [XR chest 1V portable] Stat Exams 09/21/24 07:15 Completed EKG (ED Only) Stat Exams 09/21/24 00:22 Draft KUB [XR abdomen 1V] Stat Exams 09/21/24 03:16 Completed Blood Culture (Lab) Stat Lab 09/21/24 08:37 Received CBC Stat Lab 09/21/24 00:45 Completed CMP [Comprehensive Metabolic Panel] Stat Lab 09/21/24 00:45 Completed Lactate (Lactic Acid) Stat Lab 09/21/24 08:14 Completed Lipase Stat Lab 09/21/24 00:45 Completed TSH [Thyroid Stimulating Hormone] Stat Lab 09/21/24 00:45 Completed Troponin I Stat Lab 09/21/24 00:45 Completed Ondansetron Inj [Zofran Inj] Med 09/21/24 11:20 Discontinued 8 mg IV X1 ONE Sodium Chloride 0.9% 1000 ml [Ns] 1,000 ml Med 09/21/24 01:24 Discontinued IV 999 mls/hr Vital Signs Vital signs: Vital Signs Temperature 98.1 F 09/21/24 00:26 Pulse Rate 132 H 09/21/24 00:26 Respiratory Rate 18 09/21/24 00:26 Blood Pressure 113/69 09/21/24 00:26 Pulse Oximetry (%) 95 09/21/24 00:26 Oxygen Delivery Method Room Air 09/21/24 00:26 Nausea/Vomiting/Diarrhea MDM Narrative MDM Narrative:: IAnnabel am scribing for and in the presence of Dr. Dawson. Patient data External records reviewed:: [facility] previous records (Reviewed last admission from 09/11/24 through 09/17/24 for the following: small bowel obstruction, sepsis, pneumonia, CAROLYN, hyponatremia.) Clinical information provided by:: patient and family (son) Social determinants that could affect healthcare access:: other (specify) (Former smoker.) Patient has the following chronic illnesses:: Chronic Lung Cancer (Stage IV). Patient was recently admitted from 09/11/24 through 09/17/24 for the following: small bowel obstruction, sepsis, pneumonia, CAROLYN, hyponatremia. How is presenting disease/condition affected by chronic disease/condition?: exacerbated by Evaluation data The following diagnostics were reviewed and interpreted by me:: lab results, rad iology exam(s) and EKG tracing(s) Lab and/or radiology exams considered but not ordered:: none Interpretation Summary: EKG#1: EKG at 0029 hours. Interpreted by me: sinus tachycardia with short ND interval, rate 133, nonspecific ST-T wave changes, ND interval 119 ms, QRS duration 86 ms, QT/QTc 300/447, P-R-T axis 70, 6, and 84 RADIOLOGY Procedure(s): CT abdomen pelvis wo con Accession Number(s): [id number] cc: Geronimo Dawson MD; Umesh Mcdowell MD; Jason Siegel MD~ Examination: CT abdomen and pelvis without contrast. Coronal 3-D reconstructions. Sagittal 2-D reconstructions. Date and time of exam:September 21, 2024 1056 hours Comparison September 11, 2024 INDICATIONS: High-grade mechanical small bowel obstruction on CT study September 11, 2024, vomiting today CTDI: vol (mGy): 5.92 DLP: (mGycm): 385 Technique: Axial images of the abdomen have been obtained, 3 mm slice thickness Intravenous contrast material has not been administered. Low dose protocols were performed. One or more of the following dose reduction techniques were used; automated exposure control, adjustment of the mA and/or KV according to patient size, use of iterative reconstruction technique. Findings: Prominent pneumonia left base Loculated left pleural fluid measuring up to 5.6 cm in dimension No focal liver or splenic lesion Contracted gallbladder with tiny gallstones No pancreatic mass No hydronephrosis Multiple fluid distended small bowel loops measuring up to 4.7 cm in dimension Colonic diverticulosis Seminal vesicles are thickened and Significant prostatomegaly, transverse dimension 6.6 cm Intact urinary bladder Severe osteopenia Sclerotic lesions again noted T9, T11, L1, L4, S1 IMPRESSION: Significant pneumonia left base Loculated left pleural fluid Cholelithiasis High-grade mechanical small bowel obstruction, recommend repeat small bowel series follow-up, Gastrografin Dictated By: Jason Siegel MD Procedure(s): XR chest 1V portable Accession Number(s): [id number] cc: Geronimo Dawson MD; Umesh Mcdowell MD; Jason Siegel MD~ Examination: AP chest single view Technique one AP portable upright chest single view Exam date and time: September 21, 2024 0733 hrs. Comparison September 11, 2024 Indications: Coughing shortness of breath today. Findings: Extensive pneumonia and pleural disease left hemithorax Mild vascular congestion Prominent osteopenia Impression: Recommend CT chest post contrast follow-up to assess extensive pleural parenchymal disease left hemithorax Dictated By: Jason Siegel MD -- Procedure(s): XR abdomen 1V Accession Number(s): [id number] cc: Umesh Mcdowell MD; Jason Siegel MD; Dmitri Sauceda PA-C~ Examination: Abdomen AP single view Technique: AP portable supine abdomen, single view Exam date and time: September 21, 2024 0330 hrs. Indications: Nausea vomiting today Findings: Moderate to large amounts of air and stool throughout the colon No free air No obstruction Parenchymal disease left base Impression: Moderate to large amounts of air and stool throughout the colon Recommend PA lateral chest follow-up to assess for parenchymal disease left base Dictated By: Jason Siegel MD Medications / Prescriptions Medications / Prescriptions considered but not ordered:: none Medication administrations:: Medication Administration History Discontinued Medications Sodium Chloride (Ns) 1,000 mls @ 999 mls/hr IV .Q1H1M ONE Stop: 09/21/24 02:24 Last Infusion: 09/21/24 04:31 Dose: Infused Documented By: Admin: 09/21/24 03:33 Dose: 999 mls/hr Documented By: CVL Ondansetron HCl (Ondansetron Inj 2 Mg/Ml Inj 2 Ml) 8 mg IV X1 ONE; Protocol Stop: 09/21/24 11:21 Last Admin: 09/21/24 11:34 Dose: 8 mg Documented By: VG see above Consultations Consultation(s) initiated? (list below): Yes Consultation #1 (Physician, Specialty, Details): Discussed test HPI, PMHx, lab, radiology results and/or management with hospitalist. Will admit for further evaluation and management. Accepts patient for admission. Time: 11:56 Diagnosis Nausea Differential Diagnosis: traveler's diarrhea, gastroenteritis, dehydration and other (electrolyte imbalance) Most likely diagnosis given after review of the tests above:: - Pneumonia left side - High grade SBO - Hyponatremia Admission Indicated Admission indicated?: indicated Admission Request Was there a request for admission?: Yes Admission Attestation Admission request attestation: Discussed case with [] from Hospitalist service regarding admission. Discussed patients ED course, exam findings, labs, and radiology results. The Hospitalist [agrees,declines] to accept the patient for admission. Disposition Plan Disposition Plan: Admit Discharge Plan Plan Patient Disposition: Admit Acute Care w/in Hospital Prescriptions/Referrals Prescriptions/Med Rec: No Action Hydrocodone/Acetaminophen * (NORCO 5/325 *) 1 TAB tablet 1 tab PO Q4H PRN (Reason: PAIN) Qty: 20 0RF Rx Instructions: FOR PAIN lactulose [Enulose] 10 gram/15 mL solution 10 g PO QDAY sucralfate 1 gram tablet 1 g PO BID Patient Comments: TOME 1 TABLETA POR V A ORAL DOS VECES AL D A EN EST MELODY VAC O FOR 30 DAYS prochlorperazine maleate [Compazine] 10 mg tablet 10 mg PO Q6H PRN (Reason: nausea and vomiting) lorazepam [Ativan] 0.5 mg tablet 0.5 mg PO QID PRN (Reason: anxiety) Rx Instructions: PT TAKES IN LIQUID FORM PER [facility] latanoprost 0.005 % drops 1 drp Right eye HS timolol maleate 0.5 % drops 1 drp Right eye Q12H Referrals: Umesh Mcdowell MD [Primary Care Provider] - In 1 week Problem List Clinical Impression: Pneumonia, SBO (small bowel obstruction), Hyponatremia Patient/Caregiver Discharge Instructions Print Language: Yakut Stand Alone Forms: [facility] Award Info., Patient Portal Info Letter
--- NOTE | 2024-09-21 07:59 | XR_ITS ---
Examination: CT abdomen and pelvis without contrast. Coronal 3-D reconstructions. Sagittal 2-D reconstructions. Date and time of exam:September 21, 2024 1056 hours Comparison September 11, 2024 INDICATIONS: High-grade mechanical small bowel obstruction on CT study September 11, 2024, vomiting today CTDI: vol (mGy): 5.92 DLP: (mGycm): 385 Technique: Axial images of the abdomen have been obtained, 3 mm slice thickness Intravenous contrast material has not been administered. Low dose protocols were performed. One or more of the following dose reduction techniques were used; automated exposure control, adjustment of the mA and/or KV according to patient size, use of iterative reconstruction technique. Findings: Prominent pneumonia left base Loculated left pleural fluid measuring up to 5.6 cm in dimension No focal liver or splenic lesion Contracted gallbladder with tiny gallstones No pancreatic mass No hydronephrosis Multiple fluid distended small bowel loops measuring up to 4.7 cm in dimension Colonic diverticulosis Seminal vesicles are thickened and Significant prostatomegaly, transverse dimension 6.6 cm Intact urinary bladder Severe osteopenia Sclerotic lesions again noted T9, T11, L1, L4, S1 IMPRESSION: Significant pneumonia left base Loculated left pleural fluid Cholelithiasis High-grade mechanical small bowel obstruction, recommend repeat small bowel series follow-up, Gastrografin
[2024-09-21 08:18] LABS: Lactate (Lactic Acid) 1.3 mMol/L (0.4-2.0)
[2024-09-21] MEDS: ONDANSETRON INJ 2 MG/ML INJ 2 ML 8 MG IV (11:34)
[2024-09-21] MEDS: SODIUM CHLORIDE 0.9% 1000 ML 1,000 ML 75 ML IV (14:25)
--- NOTE | 2024-09-21 14:39 | XR_ITS ---
Examination: AP chest single view TECHNIQUE: AP portable upright chest single view INDICATIONS: NG tube placement Exam date and time: September 21, 2024 1516 hours FINDINGS: Orogastric tube coiled in the upper half esophagus Extensive pleural parenchymal disease again noted Stable cardiac contour IMPRESSION: Recommend removing the orogastric tube and reinserting
--- NOTE | 2024-09-21 16:11 | ESHP_ITS ---
<Statement entered by April Soriano MD - 09/27/24 13:20> I reviewed above note and agree with findings and plans. I have also personally examined the patient with medicine team and went over assessment and plan with medical team including healthcare administration intern and resident physician. <Statement entered by Gorge España MD - 09/22/24 17:07> Senior Resident Attestation: I supervised/discussed management plan with healthcare administration intern physician Dr. Pratt, and was involved in the care of this patient. I personally saw and examined the patient and discussed the assessment and plan with the entire medicine team, including my attending. I agree with the assessment and plan as documented. Patient is 84 years old male with past medical history of COPD, lung cancer, recurrent SBO's presented to the ED complaining of abdominal pain nausea and vomiting and was found to have high-grade small bowel mechanical obstruction, was admitted for further management, NG tube was placed and LIS was started. Patient's care was discussed with attending physician, Dr. Soriano. Gorge España MD PGY-2. Documentation for date of: 09/21/24 HPI History of Present Illness History of present illness: Mr. Mccormack is a 84-year-old male past medical history significant for COPD on home oxygen, stage IV lung cancer status post radiation in 2023 and history of recurrent SBO presented to the ED due to persistent nausea, vomiting and constipation since Friday. Patient was recently discharged from hospital for similar episode and was managed for SBO during hospitalization and discharged on the 09/17. Patient's son and daughter are at bedside who stated that patient was doing better when he was discharged and his last bowel movement was approximately 10 AM on the following day after discharge but has not passed gas or had a bowel movement since. During hospitalization patient was also being treated for pneumonia and was sent home on oral antibiotics which patient was unable to complete the course due to intractable vomiting. Patient started having intractable vomiting since yesterday with more than 10 episodes yesterday and this morning which prompted them to bring him back to the ED. Patient's daughter states that he has repeat episodes of SBO and now if there is surgical intervention that can resolve this that they would prefer and opt into it now since he is having repeat episodes of SBO. Patient denies any fever, chills or abdominal pain or bloating. Patient denies chest pain, palpitations or discomfort however he does state that if he walks around then he gets shortness of breath but at rest he is fine. Patient's daughter states that patient was recently prescribed a medication for insomnia however that medication has not worked and family noticed he is been not able to sleep since Friday which has caused him to become a little altered. Patient denies any dizziness, or syncopal episodes. ED course In the ED initial vitals include blood pressure 113/69, pulse 132, patient saturating above 94% on room air Labs are significant for WBC 12.0, hemoglobin 10.6, hematocrit 30.9, platelet 450, sodium 128, chloride 91, BUN 27, glucose 156, osmolality 265 EKG showed sinus tachycardia with no acute ST or T wave changes Abdominal t-guv-lafiqmhs to large amount of air and stool throughout the colon Chest q-ghi-aeshqgbbp pneumonia and pleural disease left hemothorax Abdomen/pelvis CT-significant pneumonia left base, loculated left pleural fluid, cholelithiasis, high-grade mechanical small bowel obstruction In the ED patient was given 1 L bolus of NS, Zofran 8 mg IV push x 1 PMH: COPD, 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 elderly thin frail man, cooperative and calm NEURO: no focal neurological deficits notes HEENT: Atraumatic, Normocephalic. mucous membranes moist. Eyes open, symmetrical, & clear HEART: Normal Heart Sounds LUNGS: decreased breath sounds heard bilaterally ABDOMEN: soft, non-distended, non-tender, bowel sounds heard in the RUQ only, no guarding or rebound tenderness SKIN: No Rash or ecchymoses EXTREMITIES: No edema, tenderness, able to move all 4 extremities, pedal pulses palpated Results: Labs 09/21/24 00:45 09/21/24 00:45 Labs: Short CBC 09/21/24 Range/Units 00:45 WBC 12.0 H (3.8-10.6) Thou/mm3 Hgb 10.6 L D (13.5-16.0) g/dL Hct 30.9 L (41.0-53.0) % Plt Count 450 H D (140-440) Thou/mm3 BMP 09/21/24 00:45 Sodium 128 L Potassium 3.6 Chloride 91 L Carbon Dioxide 28.3 BUN 27 H Creatinine 0.9 Glucose 150 H Calcium 9.2 Cardiac Enzymes 09/21/24 Range/Units 00:45 Troponin I < 0.020 (0.0-0.045) ng/mL Liver Function 09/21/24 Range/Units 00:45 Total Bilirubin 0.5 (0.3-1.2) mg/dL AST 22 (0-34) U/L ALT 16 (10-49) U/L Alkaline Phosphatase 104 (46-116) U/L Albumin 3.6 (3.4-4.8) gm/dL Quality Measures Quality Measures none Advance care planning discussed with:: patient and child Medications Home Medications and Allergies Home Medications ?Medication ?Instructions ?Recorded ?Confirmed ?Type lactulose 10 gram/15 mL oral 10 g PO QDAY 09/12/24 History solution (Enulose) latanoprost 0.005 % eye drops 1 drp Right eye HS 09/1209/12/24 History lorazepam 0.5 mg tablet (Ativan) 0.5 mg PO QID PRN anx iety 09/12/24 09/12/24 History prochlorperazine maleate 10 mg 10 mg PO Q6H PRN nausea and 09/12/24 09/12/24 History tablet (Compazine) vomiting sucralfate 1 gram tablet 1 g PO BID 09/12/24 09/12/24 History timolol maleate 0.5 % eye drops 1 drp Right eye Q12H 0 09/12/24 09/12/24 History Allergies Allergy/AdvReac Type Severity Reaction Status Date / Time No Known Allergies Allergy Verified 09/03/24 10:06 Visit Medications Acetaminophen (Acetaminophen 325 Mg Tablet) 650 mg PO Q6H PRN PRN Reason: Fever >101.5 and pain 1-3 Stop: 10/21/24 15:02 Heparin Sodium (Porcine) (Heparin Sod Inj 5000 Unit/Ml Vial) 5,000 unit SC Q8HR [facility] Stop: 10/05/24 21:59 Sodium Chloride (Ns) 1,000 mls @ 75 mls/hr IV .[id number] DANYELLE Stop: 09/22/24 16:24 Last Admin: 09/21/24 14:25 Dose: 75 mls/hr Cefepime HCl 2 gm/ Sodium (Chloride) 50 mls @ 100 mls/hr IV Q12HR DANYELLE Stop: 09/28/24 15:19 Morphine Sulfate (Morphine Sulf Inj 10 Mg/Ml Vial) 1 mg IVP Q4H PRN PRN Reason: pain 4-10 Ondansetron HCl (Ondansetron Inj 2 Mg/Ml Inj 2 Ml) 4 mg IV Q6H PRN; Protocol PRN Reason: NAUSEA OR VOMITING Stop: 10/21/24 15:02 Oxycodone/Acetaminophen (Oxycodone/Apap 5/325 Tablet) 1 tab PO Q6H PRN PRN Reason: PAIN SCALE 4-6 (Moderate Stop: 09/26/24 15:02 Discontinued Medications Sodium Chloride (Ns) 1,000 mls @ 999 mls/hr IV .Q1H1M ONE Stop: 09/21/24 02:24 Last Infusion: 09/21/24 04:31 Dose: Infused Ondansetron HCl (Ondansetron Inj 2 Mg/Ml Inj 2 Ml) 8 mg IV X1 ONE; Protocol Stop: 09/21/24 11:21 Last Admin: 09/21/24 11:34 Dose: 8 mg Assessment & Plan Plan Mr. Mccormack is a 84-year-old male past medical history significant for COPD on home oxygen, stage IV lung cancer status post radiation in 2023 and history of recurrent SBO presented to the ED due to persistent nausea, vomiting and constipation since Friday. Pt is admitted for management of SBO and IV antibiotics for Pneumonia. #Intractable nausea and vomiting 2/2 #High grade mechanical Small Bowel Obstruction #Recurrent SBO -Patient has recurrent episodes of SBO with spontaneously resolving during hospitalizations via GI series. -Patient complains of intractable nausea vomiting and constipation since Friday which was a day after discharge from hospital due to SBO with -Abdomen/pelvis CT-significant pneumonia left base, loculated left pleural fluid, cholelithiasis, high-grade mechanical small bowel obstruction Plan: -NPO now -NG tube placed on LIS and total output in the ED 1400cc -Will started upper GI series once there is minimal to no output through the NG -Maintenance fluid NS ordered -GI consulted by ED, appreciate recommendations -Will consider consulting Gen Surgery if SBO does not resolved by tomorrow #Hypoosmolar hyponatremia -Sodium on admission 128, BUN 27, osmolality 265 -Likely secondary to dehydration in the setting of poor oral intake and intractable vomiting -Started pt on maintenance fluids -Will continue to monitor daily labs #Normocytic anemia -Hgb 10.6, Hct 30.9, MCV 80 -No signs of active bleeding, patient denied any hematemesis, melena, hematochezia -This anemia is likely due to anemia of chronic disease in the setting of stage IV cancer Plan: -GI was consulted by ED, appreciate recommendations -Will continue to monitor daily CBC and transfuse if hemoglobin drops below 7 #Loculated Pleural Effusion, left #Community acquired pneumonia #Hx of invasive lung cancer stage IV s/p radiation -Pt was recently hospitalized and treated with IV antibiotics for CAP and on discharge pt was sent home with oral antibiotics however pt was unable to complete the course due to intractable vomiting -Chest s-pde-zzrioqndv pneumonia and pleural disease left hemothorax -Abdomen/pelvis CT-significant pneumonia left base, loculated left pleural fluid plan: -Cefepime 09/21- -Follow up outpatient with oncology #Hx. of COPD -Pt is a former smoker, and uses home oxygen -Supplemental O2 PRN ordered #Cholelithiasis -CT scan shows small gallstones however patient denies any right upper quadrant pain -Patient will need to follow-up outpatient if symptomatic regarding elective surgery Health Maintenance Disposition: Telemetry for management of SBO DVT Prophylaxis: Heparin 5000 units SC Q8 hrs GI Prophylaxis: Pantoprozol-40 IV Qday Diet: NPO due SBO- NG on LIS Lines: Peripheral lines Code status: Full Assessment and plan discussed with my senior resident Dr. España & attending physician Dr. Christie Pratt (PGY-1)- Internal medicine resident
--- NOTE | 2024-09-21 16:12 | XR_ITS ---
Examination: AP chest single view Technique: AP chest upright portable chest single view Exam date and time: January 21, 2025 1619 hrs. Indications: Post orogastric tube placement Findings: Orogastric tube tip proximal stomach Extensive pleural parenchymal disease again noted Moderate osteopenia Impression: Advance the orogastric tube 7 cm
[2024-09-21] MEDS: CEFEPIME INJ 2 GM in SODIUM CHLORIDE 0.9% (Popper) 50 ML IV (20:21)
--- NOTE | 2024-09-21 21:00 | PD.IMCONS ---
HPI Data of Consult Requesting Physician: April Soriano MD Primary Care Provider: Umesh Mcdowell MD Consult Narrative Reason for consult: Nausea vomiting for 3 days History of present illness: 89 years old male brought in by the son to the emergency room as patient has been vomiting for the last [address] scan of the abdomen pelvis without contrast showed high-grade small bowel obstruction with cholelithiasis pneumonia left base and loculated left pleural effusion Patient has stage IV carcinoma of the lung being followed by Dr. Hanson and our oncology group at the [facility] cc:: cc: April Soriano MD Review of Systems Review of Systems Systems Reviewed: All systems reviewed, normal except as documented Past Medical History Surgical History OTHER SURGICAL HX: As in the history of present illness Meds Home Medications and Allergies Home Medications ?Medication ?Instructions ?Recorded ?Confirmed ?Type lactulose 10 gram/15 mL oral 10 g PO QDAY 09/12/24 09/12/24 History solution (Enulose) latanoprost 0.005 % eye drops 1 drp Right eye HS 09/12/24 09/12/24 History lorazepam 0.5 mg tablet (Ativan) 0.5 mg PO QID PRN anxiety 09/12/24 09/12/24 History prochlorperazine maleate 10 mg 10 mg PO Q6H PRN nausea and 09/12/24 09/12/24 History tablet (Compazine) vomiting sucralfate 1 gram tablet 1 g PO BID 09/12/24 09/12/24 History timolol maleate 0.5 % eye drops 1 drp Right eye Q12H 09/12/24 09/12/24 History Allergies Allergy/AdvReac Type Severity Reaction Status Date / Time No Known Allergies Allergy Verified 09/03/24 10:06 Exam Vital Signs Temp Pulse Resp BP Pulse Ox O2 Del Method 97.6 F 109 H 19 147/87 H 95 Room Air 09/21/24 18:43 09/21/24 18:43 09/21/24 18:43 09/21/24 18:43 09/21/24 18:43 09/21/24 18:43 Routine Abdominal Exam Comments: Distended no bowel sounds Results Labs 09/21/24 00:45 09/21/24 00:45 Labs: Short CBC 09/21/24 Range/Units 00:45 WBC 12.0 H (3.8-10.6) Thou/mm3 Hgb 10.6 L D (13.5-16.0) g/dL Hct 30.9 L (41.0-53.0) % Plt Count 450 H D (140-440) Thou/mm3 BMP 09/21/24 00:45 Sodium 128 L Potassium 3.6 Chloride 91 L Carbon Dioxide 28.3 BUN 27 H Creatinine 0.9 Glucose 150 H Calcium 9.2 Cardiac Enzymes 09/21/24 Range/Units 00:45 Troponin I < 0.020 (0.0-0.045) ng/mL Liver Function 09/21/24 Range/Units 00:45 Total Bilirubin 0.5 (0.3-1.2) mg/dL AST 22 (0-34) U/L ALT 16 (10-49) U/L Alkaline Phosphatase 104 (46-116) U/L Albumin 3.6 (3.4-4.8) gm/dL Assessment and Plan Additional Assessment & Plan Additional Plan: Small bowel obstruction recurrent Plan NG tube to intermittent suction Gastrografin small bowel follow-through Will follow the patient Thank you very much for the opportunity to participate in the care of this patient Other medical problems include Metastatic stage IV lung carcinoma with left pleural effusion Requiring multiple thoracentesis in the past
[2024-09-21] MEDS: HEPARIN SOD INJ 5000 UNIT/ML VIAL SC (21:47)
[2024-09-22] VITALS (9 sets, daily range): BP systolic 118–144; BP diastolic 65–86; PULSE 90–122; RESP 12–112; TEMP 36.3–37.1; O2SAT 90–94; BMI 18.2
--- NOTE | 2024-09-22 | XR_ITS ---
Examination: Abdomen AP single view Technique: AP portable supine abdomen, single view Exam date and time: September 22, 2024 1657 hrs. Indications: Abdominal pain and distention this week, high-grade mechanical small bowel obstruction on CT abdomen pelvis study yesterday, forearm delayed film post small bowel series today. Findings: Contrast remains in the stomach Impression: Contrast remains in the stomach Multiple additional delayed films will be obtained, including 7:00, 9:00, 11:00 PM
[2024-09-22] MEDS: SODIUM CHLORIDE 0.9% 1000 ML 1,000 ML 75 ML IV (02:21)
--- NOTE | 2024-09-22 05:00 | XR_ITS ---
Examination: AP chest single view Technique: AP portable semiupright chest single view Exam date and time: September 22, 2024 0516 hrs. Comparison September 21, 2024 Indications: Post orogastric tube placement. Findings: Orogastric tube sidehole is at the GE junction Extensive pleural parenchymal disease left hemithorax again noted Moderate osteopenia Impression: Advance the orogastric tube 7 cm
--- NOTE | 2024-09-22 05:03 | PC.NURSE ---
pt pulled out NG tube, okay to put it back in per Dr. Ace. NG tube in, waiting for XRay to confirm placement.
[2024-09-22] MEDS: HEPARIN SOD INJ 5000 UNIT/ML VIAL SC ×3 (05:28→21:36)
[2024-09-22] MEDS: CEFEPIME INJ 2 GM in SODIUM CHLORIDE 0.9% (Popper) 50 ML IV ×2 (08:09→20:04)
[2024-09-22] MEDS: PANTOPRAZOLE INJ 40 MG VIAL IVP (08:10)
[2024-09-22 09:17] LABS: Basophils % (Auto) 0 % (0-2.5); Eosinophils % (Auto) 0 % (0-10); Immature Granulocytes % (Auto) 1 % (0-0); Immature Granulocytes Auto 0.07 Thou/mm3 (0.00-0.00); Lymphocytes # (Auto) 0.3 Thou/mm3 (1.0-4.8); Lymphocytes % (Auto) 4 % (10-50); Mean Corpuscular HGB Conc 33.3 g/dl (31.0-37.0); Mean Corpuscular Hemoglobin 26.9 pg (25.0-35.0); Mean Corpuscular Volume 81 fL (80-100); Monocytes # (Auto) 0.4 Thou/mm3 (0.0-0.8); Monocytes % (Auto) 5 % (0-12); Neutrophils # (Auto) 7.5 Thou/mm3 (1.8-7.7); Neutrophils % (Auto) 91 % (37-80); Nucleated Red Blood Cell % 0 /100 WBC (0); Platelet Count 407 Thou/mm3 (140-440); RDW Standard Deviation 42.8 fL (35.1-43.9); Red Blood Count 3.35 Miln/mm3 (4.50-5.90); White Blood Count 8.2 Thou/mm3 (3.8-10.6)
[2024-09-22 10:01] LABS: Alanine Aminotransferase 8 U/L (10-49); Albumin, Serum 2.9 gm/dL (3.4-4.8); Albumin/Globulin Ratio 0.9 (1.2-2.2); Alkaline Phosphatase 79 U/L (46-116); Anion Gap 9 (7-16); Aspartate Amino Transferase 14 U/L (0-34); BUN/Creatinine Ratio 35 Ratio (12-20); Bilirubin,Total 0.4 mg/dL (0.3-1.2); Blood Urea Nitrogen 21 mg/dL (9-23); Calcium 8.5 mg/dL (8.3-10.6); Calcium (Corrected) 9.4 mg/dL (8.5-10.1); Carbon Dioxide 27.8 mMol/L (20.0-31.0); Chloride 98 mMol/L (98-107); Creatinine (Component) 0.6 mg/dL (0.6-1.3); Estimated Creatinine Clearance 95.2 mL/min (>60); Globulin 3.2 gm/dL (2.3-3.5); Glucose 108 mg/dL (74-106); Magnesium 1.9 mg/dL (1.6-2.6); Osmolality,Calculated 274 (275-295); Phosphorous 3.2 mg/dL (2.4-5.1); Potassium 3.6 mMol/L (3.4-5.1); Sodium 135 mMol/L (136-145); Total Protein 6.1 gm/dL (5.7-8.2); eGFR > 60 See Note
--- NOTE | 2024-09-22 11:12 | XR_ITS ---
Examination: Small bowel series with KUB 7 spot fluoroscopic films of the abdomen Fluoroscopy Exam date and time: September 22, 2024 1355 hours INDICATIONS: Abdominal pain and distention this week, high-grade mechanical small bowel obstruction on CT abdomen pelvis September 21, 2024 TECHNIQUE AND FINDINGS: 120 cc Gastrografin introduced under fluoroscopic guidance in the stomach, 7 spot fluoroscopic films of the stomach 30 minute film shows contrast remaining in the stomach IMPRESSION: Early small bowel series films as above Recommend follow-up films as 3:00 PM, 4:00 PM, 6:00 PM, 8:00 PM
--- NOTE | 2024-09-22 11:56 | ESPR_ITS ---
<Statement entered by April Soriano MD - 09/28/24 13:40> I reviewed above note and agree with findings and plans. I have also personally examined the patient with medicine team and went over assessment and plan with medical team including manager of international and resident physician. <Statement entered by Gorge España MD - 09/25/24 14:39> Senior Resident Attestation: I supervised/discussed management plan with manager of international physician Dr. Pratt, and was involved in the care of this patient. I personally saw and examined the patient and discussed the assessment and plan with the entire medicine team, including my attending. I agree with the assessment and plan as documented. NG output remains high, will continue to monitor, once output is low will begin small bowel series. Patient's care was discussed with attending physician, Dr. Soriano. Gorge España MD PGY-2. Documentation for date of: 09/22/24 Subjective Subjective Interval history: No acute overnight events reported. Pt is seen and examined at bedside robb muñoz. Pt is comfortably resting and sleeping. Son is at bedside states he is glad his dad has been sleeping a lot in the hospital since at home he hast slept for more than couple days. Son states pt does not complain of any abdominal pain. Pt's nausea and vomiting has resolved. the NG output is 800cc. Pt GI series is ordered. Will continue to monitor for resolving SBO. Exam Vital Signs Temp Pulse Resp BP Pulse Ox O2 Del Method 97.7 F 108 H 18 121/69 92 L Room Air 09/22/24 08:00 09/22/24 08:44 09/22/24 08:44 09/22/24 08:00 09/22/24 08:00 09/22/24 08:00 Narrative Exam GENERAL: A&Ox3 . elderly thin frail man, cooperative and calm NEURO: no focal neurological deficits notes HEENT: Atraumatic, Normocephalic. mucous membranes moist. Eyes open, symmetrical, & clear HEART: Normal Heart Sounds LUNGS: decreased breath sounds heard bilaterally ABDOMEN: soft, non-distended, non-tender, bowel sounds heard in the RLQ only, no guarding or rebound tenderness SKIN: No Rash or ecchymoses EXTREMITIES: No edema, tenderness, able to move all 4 extremities, pedal pulses palpated Objective Labs 09/22/24 09:00 09/22/24 09:00 Labs: Laboratory Results - last 24 hr 09/22/24 09:00 WBC 8.2 RBC 3.35 L Hgb 9.0 L Hct 27.0 L MCV 81 MCH 26.9 MCHC 33.3 RDW Std Deviation 42.8 Plt Count 407 D Neut % (Auto) 91 H Lymph % (Auto) 4 L [place] % (Auto) 5 Eos % (Auto) 0 Baso % (Auto) 0 Neut # (Auto) 7.5 Lymph # (Auto) 0.3 L [place] # (Auto) 0.4 Eos # (Auto) 0.0 Baso # (Auto) 0.0 Immature Gran # (Auto) 0.07 H Absolute Nucleated RBC 0.00 Immature Gran % 1 H Nucleated RBC % 0 Sodium 135 L Potassium 3.6 Chloride 98 Carbon Dioxide 27.8 Anion Gap 9 BUN 21 Creatinine 0.6 Estim Creat Clear Calc 95.2 eGFR > 60 BUN/Creatinine Ratio 35 H Glucose 108 H Calculated Osmolality 274 L Calcium 8.5 Corrected Calcium 9.4 Phosphorus 3.2 Magnesium 1.9 Total Bilirubin 0.4 AST 14 ALT 8 L Alkaline Phosphatase 79 D Total Protein 6.1 Albumin 2.9 L D Globulin 3.2 Albumin/Globulin Ratio 0.9 L Quality Measures Quality Measures none Advance care planning discussed with:: child Assessment & Plan Assessment Current Active Medications: Generic Name Dose Route Start Last Admin Trade Name Freq PRN Reason Stop Dose Admin Acetaminophen 650 mg 09/21/24 15:03 Acetaminophen 325 Mg Tablet PO 10/21/24 15:02 Q6H PRN Fever >101.5 and pain 1-3 Heparin Sodium (Porcine) 5,000 unit 09/21/24 22:00 09/22/24 05:28 Heparin Sod Inj 5000 Unit/Ml Vial SC 10/05/24 21:59 5,000 unit Q8HR DANYELLE Administration Sodium Chloride 1,000 mls @ 75 mls/hr 09/21/24 13:45 09/22/24 02:21 Ns IV 09/22/24 16:24 75 mls/hr .[id number] DANYELLE Administration Cefepime HCl 2 gm/ Sodium 50 mls @ 100 mls/hr 09/21/24 15:20 09/22/24 08:09 Chloride IV 09/28/24 15:19 100 mls/hr Q12HR DANYELLE Administration Morphine Sulfate 1 mg 09/21/24 15:49 Morphine Sulf Inj 10 Mg/Ml Vial IVP Q4H PRN pain 4-10 Ondansetron HCl 4 mg 09/21/24 15:03 Ondansetron Inj 2 Mg/Ml Inj 2 Ml IV 10/21/24 15:02 Q6H PRN NAUSEA OR VOMITING Protocol Oxycodone/Acetaminophen 1 tab 09/21/24 15:03 Oxycodone/Apap 5/325 Tablet PO 09/26/24 15:02 Q6H PRN PAIN SCALE 4-6 (Moderate Pantoprazole Sodium 40 mg 09/22/24 09:00 09/22/24 08:10 Pantoprazole Inj 40 Mg Vial IVP 10/22/24 08:59 40 mg QDAY DANYELLE Administration Plan Mr. Mccormack is a 84-year-old male past medical history significant for COPD on home oxygen, stage IV lung cancer status post radiation in 2023 and history of recurrent SBO presented to the ED due to persistent nausea, vomiting and constipation since Friday. Pt is admitted for management of SBO and IV antibiotics for Pneumonia. #Intractable nausea and vomiting 2/2 #High grade mechanical Small Bowel Obstruction #Recurrent SBO -Patient has recurrent episodes of SBO with spontaneously resolving during hospitalizations via GI series. -Patient complains of intractable nausea vomiting and constipation since Friday which was a day after discharge from hospital due to SBO with -Abdomen/pelvis CT-significant pneumonia left base, loculated left pleural fluid, cholelithiasis, high-grade mechanical small bowel obstruction Plan: -NPO now -NG tube placed on LIS and total output in the ED 1400cc -Will started upper GI series once there is minimal to no output through the NG -Maintenance fluid NS ordered -GI consulted by ED, appreciate recommendations -Will consider consulting Gen Surgery if SBO does not resolved by tomorrow #Hypoosmolar hyponatremia -Sodium on admission 128, BUN 27, osmolality 265 -Likely secondary to dehydration in the setting of poor oral intake and intractable vomiting -Started pt on maintenance fluids -Will continue to monitor daily labs #Normocytic anemia -Hgb 10.6, Hct 30.9, MCV 80 -No signs of active bleeding, patient denied any hematemesis, melena, hematochezia -This anemia is likely due to anemia of chronic disease in the setting of stage IV cancer Plan: -GI was consulted by ED, appreciate recommendations -Will continue to monitor daily CBC and transfuse if hemoglobin drops below 7 #Loculated Pleural Effusion, left #Community acquired pneumonia #Hx of invasive lung cancer stage IV s/p radiation -Pt was recently hospitalized and treated with IV antibiotics for CAP and on discharge pt was sent home with oral antibiotics however pt was unable to complete the course due to intractable vomiting -Chest [id number] pneumonia and pleural disease left hemothorax -Abdomen/pelvis CT-significant pneumonia left base, loculated left pleural fluid plan: -Cefepime 09/21- -Follow up outpatient with oncology #Hx. of COPD -Pt is a former smoker, and uses home oxygen -Supplemental O2 PRN ordered #Cholelithiasis -CT scan shows small gallstones however patient denies any right upper quadrant pain -Patient will need to follow-up outpatient if symptomatic regarding elective surgery Health Maintenance Disposition: Telemetry for management of SBO DVT Prophylaxis: Heparin 5000 units SC Q8 hrs GI Prophylaxis: Pantoprozol-40 IV Qday Diet: NPO due SBO Lines: Peripheral lines Code status: Full Assessment and plan discussed with my senior resident Dr. España & attending physician Dr. Christie Pratt (PGY-1)- Internal medicine resident
--- NOTE | 2024-09-22 12:40 | PC.NURSE ---
Pt to radiology with staff and son.
--- NOTE | 2024-09-22 15:00 | XR_ITS ---
Examination: Abdomen AP single view Technique: AP portable supine abdomen, single view Exam date and time: September 22, 2024 1507 hours INDICATIONS: Two-hour delayed film post small bowel series today, abdominal pain and distention this week, high-grade mechanical small bowel obstruction on CT abdomen pelvis September 21, 2024 FINDINGS: Contrast now present primarily in the colon IMPRESSION: Negative for small bowel obstruction, no further films are needed
--- NOTE | 2024-09-22 15:47 | PC.SS ---
YOAV Narciso Perez completed a face to face biopsychosocial initial assessment at bedside; however, the pt was asleep, so this sign writer hand gathered information from the son named Kendrick Perez [phone] who was present at bedside. Kendrick reported that the pt resides with pts daughter named Luna [phone] and she is the pts main caregiver. Kendrick confirmed the pts address and contact information. It was reported that the pts PCP is Dr. Minor Mcdowell at [facility], specialist is Dr. Hanson for Oncology. Kendrick reports that the pt was on hospice care but is no longer on hospice care because he is now admitted into the hospital. Kendrick reported that the pt is a Full Code, but limited code and in the event the pt is not able to make his own decisions, Kendrick reported that the family will come together and agree to make medical decisions for the pt. Kendrick reported that pt bathes with assistance, cooks with assistance and does not clean the home as Luna does the cleaning for the pt. Kendrick reported that the pt uses a walker at home to ambulate and uses O2 at night only and uses [facility] on [address] in [place]. Kendrick reported that he believes (but is unsure) that Luna Castillo has a Power of Statistical Methods Professor on the pt. SS concerns/needs: At the time of this writing, there are no concerns or worries for this pt. No needs identified at the time of this writing. D/c: Per son Kendrick Perez, pt is to return home upon d/c. Next of Kin: Luna Castillo [phone].
--- NOTE | 2024-09-22 16:30 | PC.SS ---
Rounding note: Waiting on small bowel series, had SBO. No d/c at this time.
--- NOTE | 2024-09-22 20:16 | PD.IMPROG ---
Documentation for date of: 09/22/24 Subjective Subjective Interval history: KUB shows contrast in the right colon No evidence of small bowel obstruction at the moment Exam Vital Signs Temp Pulse Resp BP Pulse Ox O2 Del Method 97.6 F 108 H 14 128/76 91 L Room Air 09/22/24 16:00 09/22/24 16:00 09/22/24 16:00 09/22/24 16:00 09/22/24 16:00 09/22/24 16:00 Objective Labs 09/22/24 09:00 09/22/24 09:00 Labs: Laboratory Results - last 24 hr 09/22/24 09:00 WBC 8.2 RBC 3.35 L Hgb 9.0 L Hct 27.0 L MCV 81 MCH 26.9 MCHC 33.3 RDW Std Deviation 42.8 Plt Count 407 D Neut % (Auto) 91 H Lymph % (Auto) 4 L [place] % (Auto) 5 Eos % (Auto) 0 Baso % (Auto) 0 Neut # (Auto) 7.5 Lymph # (Auto) 0.3 L [place] # (Auto) 0.4 Eos # (Auto) 0.0 Baso # (Auto) 0.0 Immature Gran # (Auto) 0.07 H Absolute Nucleated RBC 0.00 Immature Gran % 1 H Nucleated RBC % 0 Sodium 135 L Potassium 3.6 Chloride 98 Carbon Dioxide 27.8 Anion Gap 9 BUN 21 Creatinine 0.6 Estim Creat Clear Calc 95.2 eGFR > 60 BUN/Creatinine Ratio 35 H Glucose 108 H Calculated Osmolality 274 L Calcium 8.5 Corrected Calcium 9.4 Phosphorus 3.2 Magnesium 1.9 Total Bilirubin 0.4 AST 14 ALT 8 L Alkaline Phosphatase 79 D Total Protein 6.1 Albumin 2.9 L D Globulin 3.2 Albumin/Globulin Ratio 0.9 L Impressions Impression: Resolved small bowel obstruction Continue current management Assessment & Plan A&P Narrative Small bowel obstruction recurrent Plan NG tube to intermittent suction Gastrografin small bowel follow-through Will follow the patient Thank you very much for the opportunity to participate in the care of this patient Other medical problems include Metastatic stage IV lung carcinoma with left pleural effusion Requiring multiple thoracentesis in the past Time Spent With Patient Time: Total time spent is greater than 50% in coordination of care (as documented) at patient's floor/unit and/or counseling patient:
--- NOTE | 2024-09-22 21:00 | XR_ITS ---
Examination: Abdomen AP single view Technique: AP portable supine abdomen, single view Exam date and time: September 22, [id number] hrs. Indications: 18 hour delayed film post small bowel series today, abdominal pain and distention Findings: Contrast present in distended small bowel loops but contrast now present in the colon Impression: Partial small bowel obstruction Recommend 1 additional film at 6:00 AM
[2024-09-23] VITALS (8 sets, daily range): BP systolic 114–132; BP diastolic 58–78; PULSE 90–116; RESP 17–95; TEMP 36–36.9; O2SAT 94–96
[2024-09-23 05:58] LABS: Basophils % (Auto) 0 % (0-2.5); Eosinophils % (Auto) 0 % (0-10); Hematocrit 28.7 % (41.0-53.0); Hemoglobin 9.2 g/dL (13.5-16.0); Immature Granulocytes % (Auto) 1 % (0-0); Immature Granulocytes Auto 0.08 Thou/mm3 (0.00-0.00); Lymphocytes # (Auto) 0.3 Thou/mm3 (1.0-4.8); Lymphocytes % (Auto) 4 % (10-50); Mean Corpuscular HGB Conc 32.1 g/dl (31.0-37.0); Mean Corpuscular Volume 84 fL (80-100); Monocytes # (Auto) 0.5 Thou/mm3 (0.0-0.8); Monocytes % (Auto) 5 % (0-12); Neutrophils # (Auto) 7.5 Thou/mm3 (1.8-7.7); Neutrophils % (Auto) 90 % (37-80); Nucleated Red Blood Cell % 0 /100 WBC (0); Platelet Count 454 Thou/mm3 (140-440); RDW Standard Deviation 45.2 fL (35.1-43.9); Red Blood Count 3.41 Miln/mm3 (4.50-5.90); White Blood Count 8.3 Thou/mm3 (3.8-10.6)
--- NOTE | 2024-09-23 06:00 | XR_ITS ---
Examination: Abdomen AP single view Technique: AP portable supine abdomen, single view Exam date and time: September 23, 2024 0529 hours INDICATIONS: Abdominal pain and distention this week, 15 hours film delayed post small bowel series yesterday FINDINGS: Contrast is present in distended small bowel loops, however abundant contrast is present in the colon IMPRESSION: Incomplete small bowel obstruction
[2024-09-23] MEDS: HEPARIN SOD INJ 5000 UNIT/ML VIAL SC ×3 (06:11→21:56)
[2024-09-23 06:34] LABS: Alanine Aminotransferase 9 U/L (10-49); Albumin, Serum 2.9 gm/dL (3.4-4.8); Albumin/Globulin Ratio 0.9 (1.2-2.2); Alkaline Phosphatase 85 U/L (46-116); Anion Gap 10 (7-16); Aspartate Amino Transferase 17 U/L (0-34); BUN/Creatinine Ratio 33 Ratio (12-20); Bilirubin,Total 0.3 mg/dL (0.3-1.2); Blood Urea Nitrogen 20 mg/dL (9-23); Calcium 8.7 mg/dL (8.3-10.6); Calcium (Corrected) 9.6 mg/dL (8.5-10.1); Carbon Dioxide 29.3 mMol/L (20.0-31.0); Chloride 100 mMol/L (98-107); Creatinine (Component) 0.6 mg/dL (0.6-1.3); Estimated Creatinine Clearance 85.1 mL/min (>60); Globulin 3.2 gm/dL (2.3-3.5); Glucose 107 mg/dL (74-106); Magnesium 1.7 mg/dL (1.6-2.6); Osmolality,Calculated 280 (275-295); Phosphorous 2.9 mg/dL (2.4-5.1); Potassium 3.4 mMol/L (3.4-5.1); Sodium 139 mMol/L (136-145); Total Protein 6.1 gm/dL (5.7-8.2); eGFR > 60 See Note
[2024-09-23] MEDS: CEFEPIME INJ 2 GM in SODIUM CHLORIDE 0.9% (Popper) 50 ML IV ×3 (10:04→21:44)
[2024-09-23] MEDS: PANTOPRAZOLE INJ 40 MG VIAL IVP (10:04)
[2024-09-23] MEDS: POTASSIUM CHL 10 mEq IVPB 10 MEQ/100 ML BAG 100 MEQ IV ×4 (11:47→16:07)
[2024-09-23] MEDS: MORPHINE SULF INJ 10 MG/ML VIAL IVP (12:24)
--- NOTE | 2024-09-23 12:35 | PC.SS ---
Waiting on pt to tolerate a diet and possible d/c later today if he is able to tolerate diet.
--- NOTE | 2024-09-23 12:55 | ESPR_ITS ---
<Statement entered by April Soriano MD - 09/29/24 09:28> I reviewed above note and agree with findings and plans. I have also personally examined the patient with medicine team and went over assessment and plan with medical team including manager internal and resident physician. <Statement entered by Gorge España MD - 09/25/24 14:41> Senior Resident Attestation: I supervised/discussed management plan with manager internal physician Dr. Pratt, and was involved in the care of this patient. I personally saw and examined the patient and discussed the assessment and plan with the entire medicine team, including my attending. I agree with the assessment and plan as documented. Patient is undergoing small bowel series, NG tube clamped. General surgery following. No BM or passing gas. Patient's care was discussed with attending physician, Dr. Soriano. Gorge España MD PGY-2. Documentation for date of: 09/23/24 Subjective Subjective Interval history: No acute overnight events reported. Patient seen and examined at bedside this morning patient's family including son and other family members are at bedside. Discussion is held with family regarding patient's care plan during this admission. Patient continues to have no bowel movement and not passing gas however bowel sounds are heard. NG tube is clamped and son at bedside states they would like surgical consultation in case there was something that was causing these recurrent SBO. Previously patient's family had opted to pursue hospice which is the reason why they did not do any further workup. But now family feels that the patient is doing better and would like to do further workup and if necessary undergo surgery for any possible masses, adhesions that are causing this recurrent SBO. Radiation oncologist Dr. Hanson is consulted and general surgeon Dr. Thompson is consulted as patient's SBO has not resolved in 2 days despite GI series. Per general surgery recommends that this is likely ileus not small bowel obstruction as the contrast is in the colon however patient may be started on Reglan every 6 hours, milk of magnesium through the NG tube while keeping it clamped as well as docusate suppository and general surgery will evaluate the patient tomorrow. Vitals are stable and labs are also stable with the exception of potassium 3.4 and 40 mEq is repleted. Exam Vital Signs Temp Pulse Resp BP Pulse Ox O2 Del Method O2 Flow Rate 96.8 F 100 22 H 115/65 95 Room Air 0.5 09/23/24 12:00 09/23/24 12:00 09/23/24 12:00 09/23/24 12:00 09/23/24 12:00 09/23/24 12:00 09/23/24 08:14 Narrative Exam GENERAL: A&Ox3 . elderly thin frail man, cooperative and calm NEURO: no focal neurological deficits notes HEENT: Atraumatic, Normocephalic. mucous membranes moist. Eyes open, symmetrical, & clear HEART: Normal Heart Sounds LUNGS: decreased breath sounds heard bilaterally ABDOMEN: soft, non-distended, non-tender, bowel sounds heard in all of the abdomen, no guarding or rebound tenderness SKIN: No Rash or ecchymoses EXTREMITIES: No edema, tenderness, able to move all 4 extremities, pedal pulses palpated Objective Labs 09/23/24 04:36 09/23/24 04:36 Labs: Laboratory Results - last 24 hr 09/23/24 04:36 WBC 8.3 RBC 3.41 L Hgb 9.2 L Hct 28.7 L MCV 84 MCH 27.0 MCHC 32.1 RDW Std Deviation 45.2 H Plt Count 454 H D Neut % (Auto) 90 H Lymph % (Auto) 4 L [place] % (Auto) 5 Eos % (Auto) 0 Baso % (Auto) 0 Neut # (Auto) 7.5 Lymph # (Auto) 0.3 L [place] # (Auto) 0.5 Eos # (Auto) 0.0 Baso # (Auto) 0.0 Immature Gran # (Auto) 0.08 H Absolute Nucleated RBC 0.00 Immature Gran % 1 H Nucleated RBC % 0 Sodium 139 Potassium 3.4 Chloride 100 Carbon Dioxide 29.3 Anion Gap 10 BUN 20 Creatinine 0.6 Estim Creat Clear Calc 85.1 eGFR > 60 BUN/Creatinine Ratio 33 H Glucose 107 H Calculated Osmolality 280 Calcium 8.7 Corrected Calcium 9.6 Phosphorus 2.9 Magnesium 1.7 Total Bilirubin 0.3 AST 17 ALT 9 L Alkaline Phosphatase 85 Total Protein 6.1 Albumin 2.9 L Globulin 3.2 Albumin/Globulin Ratio 0.9 L Quality Measures Quality Measures none Advance care planning discussed with:: child Assessment & Plan Assessment Current Active Medications: Generic Name Dose Route Start Last Admin Trade Name Freq PRN Reason Stop Dose Admin Acetaminophen 650 mg 09/21/24 15:03 Acetaminophen 325 Mg Tablet PO 10/21/24 15:02 Q6H PRN Fever >101.5 and pain 1-3 Heparin Sodium (Porcine) 5,000 unit 09/21/24 22:00 09/23/24 06:11 Heparin Sod Inj 5000 Unit/Ml Vial SC 10/05/24 21:59 5,000 unit Q8HR DANYELLE Administration Potassium Chloride 10 meq in 100 mls @ 100 mls/hr 09/23/24 10:11 09/23/24 11:47 Kcl Ivpb IV 09/23/24 14:10 100 mls/hr Q1H DANYELLE Administration Cefepime HCl 2 gm/ Sodium 50 mls @ 100 mls/hr 09/23/24 12:30 Chloride IV 09/30/24 12:29 Q8HR DANYELLE Morphine Sulfate 1 mg 09/21/24 15:49 09/23/24 12:24 Morphine Sulf Inj 10 Mg/Ml Vial IVP 1 mg Q4H PRN Administration pain 4-10 Ondansetron HCl 4 mg 09/21/24 15:03 Ondansetron Inj 2 Mg/Ml Inj 2 Ml IV 10/21/24 15:02 Q6H PRN NAUSEA OR VOMITING Protocol Oxycodone/Acetaminophen 1 tab 09/21/24 15:03 Oxycodone/Apap 5/325 Tablet PO 09/26/24 15:02 Q6H PRN PAIN SCALE 4-6 (Moderate Pantoprazole Sodium 40 mg 09/22/24 09:00 09/23/24 10:04 Pantoprazole Inj 40 Mg Vial IVP 10/22/24 08:59 40 mg QDAY DANYELLE Administration Plan Mr. Mccormack is a 84-year-old male past medical history significant for COPD on home oxygen, stage IV lung cancer status post radiation in 2023 and history of recurrent SBO presented to the ED due to persistent nausea, vomiting and constipation since Friday. Pt is admitted for management of SBO and IV antibiotics for Pneumonia. #Intractable nausea and vomiting 2/2 #High grade mechanical Small Bowel Obstruction #Recurrent SBO -Patient has recurrent episodes of SBO with spontaneously resolving during hospitalizations via GI series. -Patient complains of intractable nausea vomiting and constipation since Friday which was a day after discharge from hospital due to SBO with -Abdomen/pelvis CT-significant pneumonia left base, loculated left pleural fluid, cholelithiasis, high-grade mechanical small bowel obstruction Plan: -NPO now -NG tube placed on LIS and total output in the ED 1400cc -Will started upper GI series once there is minimal to no output through the NG -Maintenance fluid NS ordered -GI consulted by ED, appreciate recommendations -consult to Gen surgery placed, per general surgery recommends that this is likely ileus not small bowel obstruction as the contrast is in the colon however patient may be started on Reglan every 6 hours, milk of magnesium through the NG tube while keeping it clamped as well as docusate suppository #Hypoosmolar hyponatremia -resolved -Sodium on admission 128, BUN 27, osmolality 265 -Likely secondary to dehydration in the setting of poor oral intake and intractable vomiting -Started pt on maintenance fluids -Will continue to monitor daily labs #Normocytic anemia -Hgb 10.6, Hct 30.9, MCV 80 -No signs of active bleeding, patient denied any hematemesis, melena, hematochezia -This anemia is likely due to anemia of chronic disease in the setting of stage IV cancer Plan: -GI was consulted by ED, appreciate recommendations -Will continue to monitor daily CBC and transfuse if hemoglobin drops below 7 #Loculated Pleural Effusion, left #Community acquired pneumonia #Hx of invasive lung cancer stage IV s/p radiation -Pt was recently hospitalized and treated with IV antibiotics for CAP and on discharge pt was sent home with oral antibiotics however pt was unable to complete the course due to intractable vomiting -Chest [id number] pneumonia and pleural disease left hemothorax -Abdomen/pelvis CT-significant pneumonia left base, loculated left pleural fluid plan: -Cefepime 09/21- -Consult to radiation oncologist Dr. Hanson placed #Hx. of COPD -Pt is a former smoker, and uses home oxygen -Supplemental O2 PRN ordered #Cholelithiasis -CT scan shows small gallstones however patient denies any right upper quadrant pain -Patient will need to follow-up outpatient if symptomatic regarding elective surgery Health Maintenance Disposition: Telemetry for management of SBO DVT Prophylaxis: Heparin 5000 units SC Q8 hrs GI Prophylaxis: Pantoprozol-40 IV Qday Diet: NPO due SBO Lines: Peripheral lines Code status: Full Assessment and plan discussed with my senior resident Dr. España & attending physician Dr. Christie Pratt (PGY-1)- Internal medicine resident
--- NOTE | 2024-09-23 13:35 | PD.ONCCONS ---
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 After receiving palliative radiation therapy patient elected to be in hospice for most of the past year. Did reasonably well for the past few months but developed symptoms of pneumonia and intractable vomiting thought to be related to small bowel obstruction.. recently admitted then discharged but now readmitted. CT abdomen pelvis 09/21/2024 revealed high-grade mechanical small bowel obstruction along with sclerotic lesions in thoracolumbar areas and significant pneumonia left base. Receiving NG suction hydration and other supportive care and symptoms appear to be improved. Today's abdominal x-ray shows incomplete small bowel obstruction, being followed by Dr. Guan. 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 Meds Home Medications and Allergies Home Medications ?Medication ?Instructions ?Recorded ?Confirmed ?Type lactulose 10 gram/15 mL oral 10 g PO QDAY 09/12/24 09/12/24 History solution (Enulose) latanoprost 0.005 % eye drops 1 drp Right eye HS 09/12/24 09/12/24 History lorazepam 0.5 mg tablet (Ativan) 0.5 mg PO QID PRN anxiety 09/12/24 09/12/24 History prochlorperazine maleate 10 mg 10 mg PO Q6H PRN nausea and 09/12/24 09/12/24 History tablet (Compazine) vomiting sucralfate 1 gram tablet 1 g PO BID 09/12/24 09/12/24 History timolol maleate 0.5 % eye drops 1 drp Right eye Q12H 09/12/24 09/12/24 History Allergies Allergy/AdvReac Type Severity Reaction Status Date / Time No Known Allergies Allergy Verified 09/03/24 10:06 Exam Vital Signs Temp Pulse Resp BP Pulse Ox O2 Del Method O2 Flow Rate 96.8 F 100 22 H 115/65 95 Room Air 0.5 09/23/24 12:00 09/23/24 12:00 09/23/24 12:00 09/23/24 12:00 09/23/24 12:00 09/23/24 12:00 09/23/24 08:14 Narrative Exam Receiving NG suction appearing comfortable verbal Results Labs 09/23/24 04:36 09/23/24 04:36 Labs: Short CBC 09/23/24 Range/Units 04:36 WBC 8.3 (3.8-10.6) Thou/mm3 Hgb 9.2 L (13.5-16.0) g/dL Hct 28.7 L (41.0-53.0) % Plt Count 454 H D (140-440) Thou/mm3 BMP 09/23/24 04:36 Sodium 139 Potassium 3.4 Chloride 100 Carbon Dioxide 29.3 BUN 20 Creatinine 0.6 Glucose 107 H Calcium 8.7 Liver Function 09/23/24 Range/Units 04:36 Total Bilirubin 0.3 (0.3-1.2) mg/dL AST 17 (0-34) U/L ALT 9 L (10-49) U/L Alkaline Phosphatase 85 (46-116) U/L Albumin 2.9 L (3.4-4.8) gm/dL Assessment and Plan Additional Assessment & Plan Additional Plan: 1. 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 2. Clinically appears to be improving with supportive care including NG suction hydration pain control 3. Patient obviously faces guarded prognosis; family still wishes for him to return home with hospice support upon discharge.
--- NOTE | 2024-09-23 14:26 | PC.SS ---
Rounding Note: Pt is pending surgery evaluation. At this time there is no d/c date.
[2024-09-23] MEDS: bisacodyL 10 MG SUPP PR (18:24)
[2024-09-23] MEDS: Milk Of Magnesia Susp 30 ML UDC NG (18:24)
[2024-09-23] MEDS: METOCLOPRAMIDE INJ 5 MG/ML VIAL 2 ML IVP ×2 (18:25→23:53)
--- NOTE | 2024-09-23 21:38 | PD.IMPROG ---
Documentation for date of: 09/23/24 Subjective Subjective Interval history: Passing flatus contrast in the right colon Current clinical picture is consistent with ileus Exam Vital Signs Temp Pulse Resp BP Pulse Ox O2 Del Method O2 Flow Rate 98.4 F 104 H 17 120/58 L 94 L Room Air 0.5 09/23/24 20:00 09/23/24 20:00 09/23/24 20:00 09/23/24 20:00 09/23/24 20:00 09/23/24 12:00 09/23/24 08:14 Objective Labs 09/23/24 04:36 09/23/24 04:36 Labs: Laboratory Results - last 24 hr 09/23/24 04:36 WBC 8.3 RBC 3.41 L Hgb 9.2 L Hct 28.7 L MCV 84 MCH 27.0 MCHC 32.1 RDW Std Deviation 45.2 H Plt Count 454 H D Neut % (Auto) 90 H Lymph % (Auto) 4 L [place] % (Auto) 5 Eos % (Auto) 0 Baso % (Auto) 0 Neut # (Auto) 7.5 Lymph # (Auto) 0.3 L [place] # (Auto) 0.5 Eos # (Auto) 0.0 Baso # (Auto) 0.0 Immature Gran # (Auto) 0.08 H Absolute Nucleated RBC 0.00 Immature Gran % 1 H Nucleated RBC % 0 Sodium 139 Potassium 3.4 Chloride 100 Carbon Dioxide 29.3 Anion Gap 10 BUN 20 Creatinine 0.6 Estim Creat Clear Calc 85.1 eGFR > 60 BUN/Creatinine Ratio 33 H Glucose 107 H Calculated Osmolality 280 Calcium 8.7 Corrected Calcium 9.6 Phosphorus 2.9 Magnesium 1.7 Total Bilirubin 0.3 AST 17 ALT 9 L Alkaline Phosphatase 85 Total Protein 6.1 Albumin 2.9 L Globulin 3.2 Albumin/Globulin Ratio 0.9 L Impressions Impression: Resolved small bowel obstruction As contrast is in the right colon Clinical picture consistent with ileus Continue Reglan Assessment & Plan A&P Narrative 1. 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 2. Clinically appears to be improving with supportive care including NG suction hydration pain control 3. Patient obviously faces guarded prognosis; family still wishes for him to return home with hospice support upon discharge. Time Spent With Patient Time: Total time spent is greater than 50% in coordination of care (as documented) at patient's floor/unit and/or counseling patient:
[2024-09-24] VITALS (14 sets, daily range): BP systolic 123–140; BP diastolic 70–85; PULSE 94–120; RESP 16–97; TEMP 36–37.1; O2SAT 94–97
[2024-09-24] MEDS: METOCLOPRAMIDE INJ 5 MG/ML VIAL 2 ML IVP (05:44)
[2024-09-24] MEDS: HEPARIN SOD INJ 5000 UNIT/ML VIAL SC ×3 (05:44→21:19)
[2024-09-24] MEDS: CEFEPIME INJ 2 GM in SODIUM CHLORIDE 0.9% (Popper) 50 ML IV ×3 (05:44→21:19)
[2024-09-24 06:18] LABS: Basophils % (Auto) 0 % (0-2.5); Eosinophils % (Auto) 0 % (0-10); Hemoglobin 9.5 g/dL (13.5-16.0); Immature Granulocytes % (Auto) 1 % (0-0); Lymphocytes # (Auto) 0.4 Thou/mm3 (1.0-4.8); Lymphocytes % (Auto) 4 % (10-50); Mean Corpuscular HGB Conc 32.8 g/dl (31.0-37.0); Mean Corpuscular Hemoglobin 27.5 pg (25.0-35.0); Mean Corpuscular Volume 84 fL (80-100); Monocytes # (Auto) 0.5 Thou/mm3 (0.0-0.8); Monocytes % (Auto) 5 % (0-12); Neutrophils # (Auto) 8.1 Thou/mm3 (1.8-7.7); Neutrophils % (Auto) 89 % (37-80); Nucleated Red Blood Cell % 0 /100 WBC (0); Platelet Count 458 Thou/mm3 (140-440); RDW Standard Deviation 46.1 fL (35.1-43.9); Red Blood Count 3.46 Miln/mm3 (4.50-5.90); White Blood Count 9.1 Thou/mm3 (3.8-10.6)
[2024-09-24 06:46] LABS: Alanine Aminotransferase 8 U/L (10-49); Albumin, Serum 2.9 gm/dL (3.4-4.8); Albumin/Globulin Ratio 0.8 (1.2-2.2); Alkaline Phosphatase 87 U/L (46-116); Anion Gap 11 (7-16); Aspartate Amino Transferase 15 U/L (0-34); BUN/Creatinine Ratio 35 Ratio (12-20); Bilirubin,Total 0.4 mg/dL (0.3-1.2); Blood Urea Nitrogen 21 mg/dL (9-23); Calcium 8.7 mg/dL (8.3-10.6); Calcium (Corrected) 9.6 mg/dL (8.5-10.1); Carbon Dioxide 28.1 mMol/L (20.0-31.0); Chloride 101 mMol/L (98-107); Creatinine (Component) 0.6 mg/dL (0.6-1.3); Estimated Creatinine Clearance 85.1 mL/min (>60); Globulin 3.5 gm/dL (2.3-3.5); Glucose 114 mg/dL (74-106); Magnesium 1.9 mg/dL (1.6-2.6); Osmolality,Calculated 283 (275-295); Phosphorous 2.6 mg/dL (2.4-5.1); Potassium 3.8 mMol/L (3.4-5.1); Sodium 140 mMol/L (136-145); Total Protein 6.4 gm/dL (5.7-8.2); eGFR > 60 See Note
[2024-09-24] MEDS: SODIUM CHLORIDE 0.9% 1000 ML 1,000 ML 75 ML IV (09:08)
[2024-09-24] MEDS: PANTOPRAZOLE INJ 40 MG VIAL IVP (09:09)
--- NOTE | 2024-09-24 11:29 | PD.SURCONS ---
HPI Consult details Consult date: 09/24/24 Reason for consultation narrative: Small bowel obstruction History of present illness: 84-year-old male with history of stage IV left lung cancer has had radiation in the past. He has developed large left-sided effusion requiring thoracentesis in the past. Since earlier this month he has been admitted to the hospital 3 times with nausea and vomiting. Each time initial CT scan revealed high-grade small bowel obstruction, each time small bowel series did not show evidence of bowel obstruction. After patient's discharge from the hospital he developed nausea and vomiting requiring readmission to the hospital. Similarly, during this admission small bowel series was negative and patient has had multiple bowel movements. Review of Systems Constitutional Constitutional: Denies chills and Denies fever(s) Cardiovascular Cardiovascular: Denies chest pain Respiratory Respiratory: Reports cough Gastrointestinal Gastrointestinal: Denies abdominal pain, Reports nausea and Reports vomiting Past Medical History Surgical History OTHER SURGICAL HX: Left hip fracture repair Social History SMOKING STATUS: Former smoker SUBSTANCE USE: does not use ALCOHOL: Former Meds Home Medications and Allergies Home Medications ?Medication ?Instructions ?Recorded ?Confirmed ?Type lactulose 10 gram/15 mL oral 10 g PO QDAY 09/12/24 09/12/24 History solution (Enulose) latanoprost 0.005 % eye drops 1 drp Right eye HS 09/12/24 09/12/24 History lorazepam 0.5 mg tablet (Ativan) 0.5 mg PO QID PRN anxiety 09/12/24 09/12/24 History prochlorperazine maleate 10 mg 10 mg PO Q6H PRN nausea and 09/12/24 09/12/24 History tablet (Compazine) vomiting sucralfate 1 gram tablet 1 g PO BID 09/12/24 09/12/24 History timolol maleate 0.5 % eye drops 1 drp Right eye Q12H 09/12/24 09/12/24 History Allergies Allergy/AdvReac Type Severity Reaction Status Date / Time No Known Allergies Allergy Verified 09/03/24 10:06 Exam Vital Signs Temp Pulse Resp BP Pulse Ox O2 Del Method O2 Flow Rate 97.7 F 111 H 22 H 140/70 H 96 Room Air 0.5 09/24/24 08:00 09/24/24 08:50 09/24/24 08:50 09/24/24 08:00 09/24/24 08:00 09/23/24 12:00 09/23/24 08:14 Constitutional Constitutional: no acute distress Routine Abdominal Exam Comments: Abdomen is soft, not tender and nondistended. He has active bowel sounds Assessment & Plan Additional Assessment Additional comments: Patient does not have small bowel obstruction rather he has ileus secondary to his pneumonia. He most likely has postobstructive pneumonia from his underlying lung malignancy Plan There is no indication for surgical intervention. Patient needs aggressive treatment of his pneumonia. He needs scheduled doses of stool softeners twice daily and increase as needed. He will also need laxatives as needed and likely high-fiber diet. I had a lengthy discussion with the patient and his family, explained to them the underlying cause of his ileus and answered all their questions.
[2024-09-24] MEDS: DOCUSATE SOD 250 MG CAPSULE PO ×2 (12:12→21:12)
[2024-09-24] MEDS: SENNA TABLET 1 TAB PO (12:12)
[2024-09-24] MEDS: POLYETHYLENE GLYCOL 17 GM PACKET PO (12:12)
[2024-09-24] MEDS: LACTULOSE SYRUP 20 GM/30 ML UDC 10 GM PO ×2 (13:07→21:12)
--- NOTE | 2024-09-24 17:50 | ESPR_ITS ---
<Statement entered by April Soriano MD - 09/29/24 09:32> I reviewed above note and agree with findings and plans. I have also personally examined the patient with medicine team and went over assessment and plan with medical team including audit practice intern and resident physician. <Statement entered by Sergio Ramirez MD - 09/26/24 15:03> Patient doing well. Patient will not need surgery per Dr. Jovel. Patient to be started and liquid diet and advance as tolerated. Family would like patient to receive fluids as thy are worried about dehydration. Case discussed with team. Sergio Ramirez MD PGY3. Documentation for date of: 09/24/24 Subjective Subjective Interval history: No acute overnight events reported. Pt is seen and examined at bedside this morning. Pt's daughter and son are at bedside who express they do not wish to put their dad on hospice and would like to pursue full treatment options available for his cancer. explained to them pt is in the hospital due to recurrent SBO, which is resolving. Pt has a bowel movement and will advance diet to clear liquid.Pt will need daily bowel regimen on discharge and will need to follow up outpatient at the cancer center for further work up.vitals and labs are stable. Pt denies abdominal pain, nausea or vomitting. Exam Vital Signs Temp Pulse Resp BP Pulse Ox O2 Del Method O2 Flow Rate 98.7 F 118 H 18 126/74 97 Room Air 1 09/24/24 16:00 09/24/24 17:05 09/24/24 17:05 09/24/24 16:00 09/24/24 16:00 09/24/24 16:00 09/24/24 17:05 Narrative Exam GENERAL: A&Ox3 . elderly thin frail man, cooperative and calm NEURO: no focal neurological deficits notes HEENT: Atraumatic, Normocephalic. mucous membranes moist. Eyes open, symmetrical, & clear HEART: Normal Heart Sounds LUNGS: decreased breath sounds heard bilaterally ABDOMEN: soft, non-distended, non-tender, bowel sounds heard in all of the abdomen, no guarding or rebound tenderness SKIN: No Rash or ecchymoses EXTREMITIES: No edema, tenderness, able to move all 4 extremities, pedal pulses palpated Objective Labs 09/24/24 05:29 09/24/24 05:29 Labs: Laboratory Results - last 24 hr 09/24/24 05:29 WBC 9.1 RBC 3.46 L Hgb 9.5 L Hct 29.0 L MCV 84 MCH 27.5 MCHC 32.8 RDW Std Deviation 46.1 H Plt Count 458 H Neut % (Auto) 89 H Lymph % (Auto) 4 L [place] % (Auto) 5 Eos % (Auto) 0 Baso % (Auto) 0 Neut # (Auto) 8.1 H Lymph # (Auto) 0.4 L [place] # (Auto) 0.5 Eos # (Auto) 0.0 Baso # (Auto) 0.0 Immature Gran # (Auto) 0.10 H Absolute Nucleated RBC 0.00 Immature Gran % 1 H Nucleated RBC % 0 Sodium 140 Potassium 3.8 Chloride 101 Carbon Dioxide 28.1 Anion Gap 11 BUN 21 Creatinine 0.6 Estim Creat Clear Calc 85.1 eGFR > 60 BUN/Creatinine Ratio 35 H Glucose 114 H Calculated Osmolality 283 Calcium 8.7 Corrected Calcium 9.6 Phosphorus 2.6 Magnesium 1.9 Total Bilirubin 0.4 AST 15 ALT 8 L Alkaline Phosphatase 87 Total Protein 6.4 Albumin 2.9 L Globulin 3.5 Albumin/Globulin Ratio 0.8 L Quality Measures Quality Measures none Advance care planning discussed with:: patient Assessment & Plan Assessment Current Active Medications: Generic Name Dose Route Start Last Admin Trade Name Star PRN Reason Stop Dose Admin Acetaminophen 650 mg 09/21/24 15:03 Acetaminophen 325 Mg Tablet PO 10/21/24 15:02 Q6H PRN Fever >101.5 and pain 1-3 Docusate Sodium 250 mg 09/24/24 11:45 09/24/24 12:12 Docusate Sod 250 Mg Capsule PO 10/24/24 11:44 250 mg BID DANYELLE Administration Protocol Heparin Sodium (Porcine) 5,000 unit 09/21/24 22:00 09/24/24 13:07 Heparin Sod Inj 5000 Unit/Ml Vial SC 10/05/24 21:59 5,000 unit Q8HR DANYELLE Administration Cefepime HCl 2 gm/ Sodium 50 mls @ 100 mls/hr 09/23/24 12:30 09/24/24 13:07 Chloride IV 09/30/24 12:29 100 mls/hr Q8HR DANYELLE Administration Sodium Chloride 1,000 mls @ 75 mls/hr 09/24/24 09:06 09/24/24 09:08 Ns IV 09/24/24 22:25 75 mls/hr .[id number] Administration Lactulose 10 gm 09/24/24 14:00 09/24/24 13:07 Lactulose Syrup 20 Gm/30 Ml Udc PO 10/24/24 13:59 10 gm TID DANYELLE Administration Protocol Magnesium Hydroxide 30 ml 09/23/24 16:45 09/24/24 09:04 Milk Of Magnesia Susp 30 Ml Udc NG 10/23/24 16:44 Not Given QDAY DANYELLE Protocol Metoclopramide HCl 5 mg 09/23/24 18:00 09/24/24 11:15 Metoclopramide Inj 5 Mg/Ml Vial 2 Ml IVP 10/23/24 17:59 Not Given Q6HR DANYELLE Protocol Morphine Sulfate 1 mg 09/21/24 15:49 09/23/24 12:24 Morphine Sulf Inj 10 Mg/Ml Vial IVP 1 mg Q4H PRN Administration pain 4-10 Ondansetron HCl 4 mg 09/21/24 15:03 Ondansetron Inj 2 Mg/Ml Inj 2 Ml IV 10/21/24 15:02 Q6H PRN NAUSEA OR VOMITING Protocol Oxycodone/Acetaminophen 1 tab 09/21/24 15:03 Oxycodone/Apap 5/325 Tablet PO 09/26/24 15:02 Q6H PRN PAIN SCALE 4-6 (Moderate Pantoprazole Sodium 40 mg 09/22/24 09:00 09/24/24 09:09 Pantoprazole Inj 40 Mg Vial IVP 10/22/24 08:59 40 mg QDAY DANYELLE Administration Polyethylene Glycol 17 gm 09/24/24 12:00 09/24/24 12:12 Polyethylene Glycol 17 Gm Packet PO 10/24/24 11:59 17 gm QDAY DANYELLE Administration Sennosides 1 tab 09/24/24 12:00 09/24/24 12:12 Senna Tablet PO 10/24/24 11:59 1 tab QDAY DANYELLE Administration Protocol Plan Mr. Mccormack is a 84-year-old male past medical history significant for COPD on home oxygen, stage IV lung cancer status post radiation in 2023 and history of recurrent SBO presented to the ED due to persistent nausea, vomiting and constipation since Friday. Pt is admitted for management of SBO and IV antibiotics for Pneumonia. #Intractable nausea and vomiting 2/2 #High grade mechanical Small Bowel Obstruction #Recurrent SBO -Patient has recurrent episodes of SBO with spontaneously resolving during hospitalizations via GI series. -Patient complains of intractable nausea vomiting and constipation since Friday which was a day after discharge from hospital due to SBO with -Abdomen/pelvis CT-significant pneumonia left base, loculated left pleural fluid, cholelithiasis, high-grade mechanical small bowel obstruction Plan: -NPO now -NG tube placed on LIS and total output in the ED 1400cc -Will started upper GI series once there is minimal to no output through the NG -Maintenance fluid NS ordered -GI consulted by ED, appreciate recommendations -consult to Gen surgery placed, per general surgery recommends that this is likely ileus not small bowel obstruction as the contrast is in the colon however patient may be started on Reglan every 6 hours, milk of magnesium through the NG tube while keeping it clamped as well as docusate suppository #Hypoosmolar hyponatremia -resolved -Sodium on admission 128, BUN 27, osmolality 265 -Likely secondary to dehydration in the setting of poor oral intake and intractable vomiting -Started pt on maintenance fluids -Will continue to monitor daily labs #Normocytic anemia -Hgb 10.6, Hct 30.9, MCV 80 -No signs of active bleeding, patient denied any hematemesis, melena, hematochezia -This anemia is likely due to anemia of chronic disease in the setting of stage IV cancer Plan: -GI was consulted by ED, appreciate recommendations -Will continue to monitor daily CBC and transfuse if hemoglobin drops below 7 #Loculated Pleural Effusion, left #Community acquired pneumonia #Hx of invasive lung cancer stage IV s/p radiation -Pt was recently hospitalized and treated with IV antibiotics for CAP and on discharge pt was sent home with oral antibiotics however pt was unable to complete the course due to intractable vomiting -Chest [id number] pneumonia and pleural disease left hemothorax -Abdomen/pelvis CT-significant pneumonia left base, loculated left pleural fluid plan: -Cefepime 09/21- -Consult to radiation oncologist Dr. Hanson placed #Hx. of COPD -Pt is a former smoker, and uses home oxygen -Supplemental O2 PRN ordered #Cholelithiasis -CT scan shows small gallstones however patient denies any right upper quadrant pain -Patient will need to follow-up outpatient if symptomatic regarding elective surgery Health Maintenance Disposition: Telemetry for management of SBO DVT Prophylaxis: Heparin 5000 units SC Q8 hrs GI Prophylaxis: Pantoprozol-40 IV Qday Diet: NPO due SBO Lines: Peripheral lines Code status: Full Assessment and plan discussed with my senior resident Dr. Ramirez & attending physician Dr. Christie Pratt (PGY-1)- Internal medicine resident
[2024-09-24] MEDS: ONDANSETRON INJ 2 MG/ML INJ 2 ML 4 MG IV (19:06)
--- NOTE | 2024-09-24 20:10 | PD.IMPROG ---
Documentation for date of: 09/24/24 Subjective Subjective Interval history: Patient evaluated having bowel movements Exam Vital Signs Temp Pulse Resp BP Pulse Ox O2 Del Method O2 Flow Rate 98.7 F 118 H 18 126/74 97 Room Air 1 09/24/24 16:00 09/24/24 17:05 09/24/24 17:05 09/24/24 16:00 09/24/24 16:00 09/24/24 16:00 09/24/24 17:05 Objective Labs 09/24/24 05:29 09/24/24 05:29 Labs: Laboratory Results - last 24 hr 09/24/24 05:29 WBC 9.1 RBC 3.46 L Hgb 9.5 L Hct 29.0 L MCV 84 MCH 27.5 MCHC 32.8 RDW Std Deviation 46.1 H Plt Count 458 H Neut % (Auto) 89 H Lymph % (Auto) 4 L [place] % (Auto) 5 Eos % (Auto) 0 Baso % (Auto) 0 Neut # (Auto) 8.1 H Lymph # (Auto) 0.4 L [place] # (Auto) 0.5 Eos # (Auto) 0.0 Baso # (Auto) 0.0 Immature Gran # (Auto) 0.10 H Absolute Nucleated RBC 0.00 Immature Gran % 1 H Nucleated RBC % 0 Sodium 140 Potassium 3.8 Chloride 101 Carbon Dioxide 28.1 Anion Gap 11 BUN 21 Creatinine 0.6 Estim Creat Clear Calc 85.1 eGFR > 60 BUN/Creatinine Ratio 35 H Glucose 114 H Calculated Osmolality 283 Calcium 8.7 Corrected Calcium 9.6 Phosphorus 2.6 Magnesium 1.9 Total Bilirubin 0.4 AST 15 ALT 8 L Alkaline Phosphatase 87 Total Protein 6.4 Albumin 2.9 L Globulin 3.5 Albumin/Globulin Ratio 0.8 L Impressions Impression: Ileus no evidence of small bowel obstruction Regulate the bowel movements with stool softeners and laxatives No plan for any invasive GI workup Assessment & Plan A&P Narrative 1. 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 2. Clinically appears to be improving with supportive care including NG suction hydration pain control 3. Patient obviously faces guarded prognosis; family still wishes for him to return home with hospice support upon discharge. Time Spent With Patient Time: Total time spent is greater than 50% in coordination of care (as documented) at patient's floor/unit and/or counseling patient:
[2024-09-25] VITALS (8 sets, daily range): BP systolic 114–127; BP diastolic 70–83; PULSE 105–128; RESP 17–98; TEMP 36.3–37.2; O2SAT 93–99
[2024-09-25] MEDS: METOCLOPRAMIDE INJ 5 MG/ML VIAL 2 ML IVP ×5 (00:29→23:08)
[2024-09-25] MEDS: ONDANSETRON INJ 2 MG/ML INJ 2 ML 4 MG IV (02:22)
[2024-09-25] MEDS: CEFEPIME INJ 2 GM in SODIUM CHLORIDE 0.9% (Popper) 50 ML IV ×3 (06:01→21:05)
[2024-09-25] MEDS: LACTULOSE SYRUP 20 GM/30 ML UDC 10 GM PO ×2 (06:02→13:13)
[2024-09-25] MEDS: HEPARIN SOD INJ 5000 UNIT/ML VIAL SC ×3 (06:08→21:06)
[2024-09-25] MEDS: PANTOPRAZOLE INJ 40 MG VIAL IVP (08:48)
[2024-09-25] MEDS: Milk Of Magnesia Susp 30 ML UDC NG (08:48)
[2024-09-25] MEDS: POLYETHYLENE GLYCOL 17 GM PACKET PO (08:48)
--- NOTE | 2024-09-25 16:32 | ESPR_ITS ---
<Statement entered by April Soriano MD - 09/29/24 12:11> I reviewed above note and agree with findings and plans. I have also personally examined the patient with medicine team and went over assessment and plan with medical team including academic intern and resident physician. <Statement entered by Gorge España MD - 09/27/24 09:19> Senior Resident Attestation: I supervised/discussed management plan with academic intern physician Dr. Long, and was involved in the care of this patient. I personally saw and examined the patient and discussed the assessment and plan with the entire medicine team, including my attending. I agree with the assessment and plan as documented. Patient's care was discussed with attending physician, Dr. Soriano. Gorge España MD PGY-2. Documentation for date of: 09/25/24 Subjective Subjective Interval history: No acute overnight events reported. Patient seen and examined at bedside this morning. Patient's son and daughter out at bedside. This morning patient was trying to eat his clear liquid diet however patient was unable to tolerate and was vomiting. Patient did have 2 bowel movements however is unable to tolerate diet. Will put patient on n.p.o. Will continue to monitor and will reattempt if slowly can advance patient's diet to clear liquid. Otherwise patient denies any abdominal pain or nausea. Vitals are stable currently patient is saturating 92% on 5 L oxygen via nasal cannula, labs are reviewed and are stable. Will continue to closely monitor patient Exam Vital Signs Temp Pulse Resp BP Pulse Ox O2 Del Method O2 Flow Rate 98.9 F 115 H 22 H 122/74 98 Room Air 5 09/25/24 12:09/25/24 12:09/25/24 12:09/25/24 12:09/25/24 12:09/25/24 12:09/25/24 09:13 Narrative Exam GENERAL: A&Ox3 . elderly thin frail man, cooperative and calm NEURO: no focal neurological deficits notes HEENT: Atraumatic, Normocephalic. mucous membranes moist. Eyes open, symmetrical, & clear HEART: Normal Heart Sounds LUNGS: decreased breath sounds heard bilaterally ABDOMEN: soft, non-distended, non-tender, bowel sounds heard in all of the abdomen, no guarding or rebound tenderness SKIN: No Rash or ecchymoses EXTREMITIES: No edema, tenderness, able to move all 4 extremities, pedal pulses palpated Objective Labs 09/24/24 05:29 09/24/24 05:29 Quality Measures Quality Measures none Advance care planning discussed with:: child Assessment & Plan Assessment Current Active Medications: Generic Name Dose Route Start Last Admin Trade Name Freq PRN Reason Stop Dose Admin Acetaminophen 650 mg 09/21/24 15:03 Acetaminophen 325 Mg Tablet PO 10/21/24 15:02 Q6H PRN Fever >101.5 and pain 1-3 Docusate Sodium 250 mg 09/24/24 11:45 09/25/24 08:48 Docusate Sod 250 Mg Capsule PO 10/24/24 11:44 Not Given BID DANYELLE Protocol Heparin Sodium (Porcine) 5,000 unit 09/21/24 22:00 09/25/24 13:13 Heparin Sod Inj 5000 Unit/Ml Vial SC 10/05/24 21:59 5,000 unit Q8HR DANYELLE Administration Cefepime HCl 2 gm/ Sodium 50 mls @ 100 mls/hr 09/23/24 12:30 09/25/24 13:13 Chloride IV 09/30/24 12:29 100 mls/hr Q8HR DANYELLE Administration Lactulose 10 gm 09/24/24 14:00 09/25/24 13:13 Lactulose Syrup 20 Gm/30 Ml Udc PO 10/24/24 13:59 10 gm TID DANYELLE Administration Protocol Magnesium Hydroxide 30 ml 09/23/24 16:45 09/25/24 08:48 Milk Of Magnesia Susp 30 Ml Udc NG 10/23/24 16:44 30 ml QDAY DANYELLE Administration Protocol Metoclopramide HCl 5 mg 09/23/24 18:00 09/25/24 11:26 Metoclopramide Inj 5 Mg/Ml Vial 2 Ml IVP 10/23/24 17:59 5 mg Q6HR DANYELLE Administration Protocol Morphine Sulfate 1 mg 09/21/24 15:49 09/23/24 12:24 Morphine Sulf Inj 10 Mg/Ml Vial IVP 1 mg Q4H PRN Administration pain 4-10 Ondansetron HCl 4 mg 09/21/24 15:03 09/25/24 02:22 Ondansetron Inj 2 Mg/Ml Inj 2 Ml IV 10/21/24 15:02 4 mg Q6H PRN Administration NAUSEA OR VOMITING Protocol Oxycodone/Acetaminophen 1 tab 09/21/24 15:03 Oxycodone/Apap 5/325 Tablet PO 09/26/24 15:02 Q6H PRN PAIN SCALE 4-6 (Moderate Pantoprazole Sodium 40 mg 09/22/24 09:00 09/25/24 08:48 Pantoprazole Inj 40 Mg Vial IVP 10/22/24 08:59 40 mg QDAY DANYELLE Administration Polyethylene Glycol 17 gm 09/24/24 12:00 09/25/24 08:48 Polyethylene Glycol 17 Gm Packet PO 10/24/24 11:59 17 gm QDAY DANYELLE Administration Sennosides 1 tab 09/24/24 12:00 09/25/24 08:48 Senna Tablet PO 10/24/24 11:59 Not Given QDAY DANYELLE Protocol Plan Mr. Mccormack is a 84-year-old male past medical history significant for COPD on home oxygen, stage IV lung cancer status post radiation in 2023 and history of recurrent SBO presented to the ED due to persistent nausea, vomiting and constipation since Friday. Pt is admitted for management of SBO and IV antibiotics for Pneumonia. #Intractable nausea and vomiting 2/2 #High grade mechanical Small Bowel Obstruction - resolved #Recurrent SBO -Patient has recurrent episodes of SBO with spontaneously resolving during hospitalizations via GI series. -Patient complains of intractable nausea vomiting and constipation since Friday which was a day after discharge from hospital due to SBO with -Abdomen/pelvis CT-significant pneumonia left base, loculated left pleural fluid, cholelithiasis, high-grade mechanical small bowel obstruction Plan: -NPO now -NG tube placed on LIS and total output in the ED 1400cc -Will started upper GI series once there is minimal to no output through the NG -Maintenance fluid NS ordered -GI consulted by ED, appreciate recommendations -consult to Gen surgery placed, per general surgery recommends that this is likely ileus not small bowel obstruction as the contrast is in the colon however patient may be started on Reglan every 6 hours, milk of magnesium through the NG tube while keeping it clamped as well as docusate suppository #Hypoosmolar hyponatremia -resolved -Sodium on admission 128, BUN 27, osmolality 265 -Likely secondary to dehydration in the setting of poor oral intake and intractable vomiting -Started pt on maintenance fluids -Will continue to monitor daily labs #Normocytic anemia -Hgb 10.6, Hct 30.9, MCV 80 -No signs of active bleeding, patient denied any hematemesis, melena, hematochezia -This anemia is likely due to anemia of chronic disease in the setting of stage IV cancer Plan: -GI was consulted by ED, appreciate recommendations -Will continue to monitor daily CBC and transfuse if hemoglobin drops below 7 #Loculated Pleural Effusion, left #Community acquired pneumonia #Hx of invasive lung cancer stage IV s/p radiation -Pt was recently hospitalized and treated with IV antibiotics for CAP and on discharge pt was sent home with oral antibiotics however pt was unable to complete the course due to intractable vomiting -Chest [id number] pneumonia and pleural disease left hemothorax -Abdomen/pelvis CT-significant pneumonia left base, loculated left pleural fluid plan: -Cefepime 09/21- -Consult to radiation oncologist Dr. Hanson placed #Hx. of COPD -Pt is a former smoker, and uses home oxygen -Supplemental O2 PRN ordered #Cholelithiasis -CT scan shows small gallstones however patient denies any right upper quadrant pain -Patient will need to follow-up outpatient if symptomatic regarding elective surgery Health Maintenance Disposition: Telemetry for management of SBO DVT Prophylaxis: Heparin 5000 units SC Q8 hrs GI Prophylaxis: Pantoprozol-40 IV Qday Diet: NPO due SBO Lines: Peripheral lines Code status: Full Assessment and plan discussed with my senior resident Dr. España & attending physician Dr. Christie Pratt (PGY-1)- Internal medicine resident
--- NOTE | 2024-09-25 17:36 | PD.IMPROG ---
Documentation for date of: 09/25/24 Subjective Subjective Interval history: Patient evaluated Had a bowel movement Exam Vital Signs Temp Pulse Resp BP Pulse Ox O2 Del Method O2 Flow Rate 98.4 F 114 H 22 H 127/83 99 Room Air 5 09/25/24 16:00 09/25/24 16:00 09/25/24 16:00 09/25/24 16:00 09/25/24 16:00 09/25/24 12:00 09/25/24 16:00 Objective Labs 09/24/24 05:29 09/24/24 05:29 Impressions Impression: Ileus Continue current management Assessment & Plan A&P Narrative 1. 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 2. Clinically appears to be improving with supportive care including NG suction hydration pain control 3. Patient obviously faces guarded prognosis; family still wishes for him to return home with hospice support upon discharge. Time Spent With Patient Time: Total time spent is greater than 50% in coordination of care (as documented) at patient's floor/unit and/or counseling patient:
[2024-09-25] MEDS: LORazepam 2 MG/ML VIAL 0.5 MG IVP (20:03)
[2024-09-26] VITALS: BP 122/84; PULSE 110; PULSE 118; RESP 27; TEMP 36.3; O2SAT 95
[2024-09-26] MEDS: MORPHINE SULF INJ 10 MG/ML VIAL IVP ×2 (01:29→13:35)
[2024-09-26 04:00] VITALS: BP 117/75; PULSE 115; PULSE 116; RESP 22; TEMP 36.6; O2SAT 97
[2024-09-26] MEDS: METOCLOPRAMIDE INJ 5 MG/ML VIAL 2 ML IVP ×2 (05:07→12:09)
[2024-09-26] MEDS: HEPARIN SOD INJ 5000 UNIT/ML VIAL SC (05:07)
[2024-09-26] MEDS: CEFEPIME INJ 2 GM in SODIUM CHLORIDE 0.9% (Popper) 50 ML IV (05:07)
[2024-09-26 08:00] VITALS: BP 120/72; PULSE 111; PULSE 114; RESP 17; TEMP 36.7; O2SAT 97
[2024-09-26] MEDS: PANTOPRAZOLE INJ 40 MG VIAL IVP (08:15)
[2024-09-26 09:34] VITALS: PULSE 111; RESP 21; RESP 98
--- NOTE | 2024-09-26 11:29 | PCS.ST ---
swallow evaluation completed. Recommend D2/THIN d/t prolonged mastication and fatigue. See swallow treatment section for additional details
[2024-09-26 11:59] VITALS: BP 114/76; PULSE 114; RESP 23; TEMP 36.2; O2SAT 98
[2024-09-26 12:00] VITALS: PULSE 109
--- NOTE | 2024-09-26 13:48 | PC.SS ---
Rag Inspector (SVETLANA) Doris informed by Dr. Soriano that patient was requesting to return home with hospice. SVETLANA met with patient and his daughter, Luna ([phone]) who confirmed information. Per Luna, patient was previously connected to [facility]. SW provided pamphlet information. SVETLANA subm,itted referral for hospice. Luna requested to transfer patient home via private vehicle. SVETLANA confirmed discharge plan with [facility]-Admission, Yamilka who reported that patient can be discharged at 1530, and RN will arrive at 1400. SVETLANA also requested a hospital bed and suctioning machine; all equipment has been ordered. RN-Mandish aware of discharge plan and time.
--- NOTE | 2024-09-26 15:40 | ESDS_ITS ---
<Statement entered by April Soriano MD - 10/01/24 08:18> I reviewed above note and agree with findings and plans. I have also personally examined the patient with medicine team and went over assessment and plan with medical team including business analyst intern and resident physician. Planned Discharge Date 09/26/24 DS: Providers Provider Date of admission: 09/21/24 13:37 Primary care physician: Umesh Mcdowell MD Admitting Provider: April Soriano MD Attending Provider on Admission: April Soriano MD Consults: 09/21/24 12:24 Consult to Gastroenterology Stat Comment: Consulting Provider: Errol Guan 09/21/24 21:30 Referral Registered Dietitian Stat Comment: 09/23/24 10:36 Consult to General Surgery Routine Comment: non resolving SBO Consulting Provider: Yasmin Thompson 09/23/24 11:48 Consult to Oncology Routine Comment: Consulting Provider: Clayton Hanson 09/26/24 12:09 Referral Hospice Stat Comment: 09/26/24 12:12 Referral Hospice Stat Comment: Attending Provider on DC: Yoon Pratt MD Discharging Provider: Yoon Pratt MD DS: Diagnosis Problem List Completed Was Problem List Reviewed/Reconciled?: Yes Hospital Course Hospital Course Hospital course: Mr. 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 The patient had recently been discharged on 09/17/2024 following a hospitalization for a similar episode of SBO. Upon this admission, the patient was made NPO, and a NG tube was placed. A GI series was initiated but did not result in clinical improvement. The patient continued to have no flatus or bowel movements. A GI specialist was consulted in the Emergency Department. After three days without resolution, General Surgery was consulted. Additionally, given the family's request for a second opinion regarding the patient?s cancer prognosis, Radiation Oncology was also involved. The patient was diagnosed in 2023 with metastatic squamous cell carcinoma of the lung and had initially elected hospice care. However, as his quality of life had temporarily improved, the family discontinued hospice services in hopes of a more favorable outcome. During the current hospitalization, the family reported a gradual decline over recent weeks, with increasing symptom burden and recurrent hospitalizations for SBO. After discussion with his care team and family, the patient, who is alert, oriented, and capable of making his own medical decisions expressed his desire to forego further invasive interventions. He elected to resume hospice care upon discharge. Ultimately, the patient's ileus versus obstruction resolved without surgical intervention. Discharge planning was coordinated, and the patient will be discharged home with hospice services in accordance with his wishes. Discharge recommendations -Referral to hospice made -If you wish to continue with medical treatment you may return to ED if your symptoms return or worsen Hospitalization Diagnosis #referral to hospice #Intractable nausea and vomiting 2/2- resolved #High grade mechanical Small Bowel Obstruction - resolved #Recurrent SBO #Normocytic anemia #Loculated Pleural Effusion, left #Community acquired pneumonia #Hx of invasive lung cancer stage IV s/p radiation #Hx. of COPD #Cholelithiasis Assessment and plan discussed with my attending physician Dr. Christie Pratt ([id number])- Internal medicine resident Time Spent with Patient Time attestation: Total time spent providing and/or coordinating discharge services: Time spent: Greater than 30 minutes Exam Vital Signs Temp Pulse Resp BP Pulse Ox O2 Del Method O2 Flow Rate 97.1 F 109 H 23 H 114/76 98 Nasal Cannula 4 09/26/24 11:59 09/26/24 12:00 09/26/24 11:59 09/26/24 11:59 09/26/24 11:59 09/26/24 11:59 09/26/24 11:59 Narrative Exam GENERAL: A&Ox3 . elderly thin frail man, cooperative and calm NEURO: no focal neurological deficits notes HEENT: Atraumatic, Normocephalic. mucous membranes moist. Eyes open, symmetrical, & clear HEART: Normal Heart Sounds LUNGS: decreased breath sounds heard bilaterally ABDOMEN: soft, non-distended, non-tender, bowel sounds heard in all of the abdomen, no guarding or rebound tenderness SKIN: No Rash or ecchymoses EXTREMITIES: No edema, tenderness, able to move all 4 extremities, pedal pulses palpated Discharge Plan Plan Patient Disposition: Home w/HOSPICE Patient condition on transfer: Benefits outweigh risks Care Plan Goals: -Referral to hospice made -If you wish to continue with medical treatment you may return to ED if your symptoms return or worsen Prescriptions/Referrals Prescriptions/Med Rec: Continued Hydrocodone/Acetaminophen * (NORCO 5/325 *) 1 TAB tablet 1 tab PO Q4H PRN (Reason: PAIN) Qty: 20 0RF Rx Instructions: FOR PAIN lactulose [Enulose] 10 gram/15 mL solution 10 g PO QDAY sucralfate 1 gram tablet 1 g PO BID Patient Comments: TOME 1 TABLETA POR V A ORAL DOS VECES AL D A EN EST MELODY VAC O FOR 30 DAYS prochlorperazine maleate [Compazine] 10 mg tablet 10 mg PO Q6H PRN (Reason: nausea and vomiting) lorazepam [Ativan] 0.5 mg tablet 0.5 mg PO QID PRN (Reason: anxiety) Rx Instructions: PT TAKES IN LIQUID FORM PER [facility] latanoprost 0.005 % drops 1 drp Right eye HS timolol maleate 0.5 % drops 1 drp Right eye Q12H Referrals: Umesh Mcdowell MD [Primary Care Provider] - Patient/Caregiver Discharge Instructions Education Materials: Small Bowel Obstruction, Hospice Dyspnea Care Print Language: Kinyarwanda Stand Alone Forms: Merari Award Info., Patient Portal Info Letter Discharge Order Discharge Orders: Discharge (Routine); Ordered 09/26/24 Ordered By: Sergio Ramirez Quality Discharge Quality Measures VTE prophylaxis
== END 2024-09-26 14:55 | disposition hospice, home (50) | DRG 388 ==
LOC: SERX 11:58 → SERHOLD 14:31 → S3SX 20:53
PROVIDERS: Family Medicine; Physician Assistant; Admitting Provider Internal Medicine; Emergency Provider Emergency Medicine; PCP Family Medicine; Visit Provider Internal Medicine
DX: K56.690 Other partial intestinal obstruction (principal); J18.9 Pneumonia, unspecified organism; J44.0 Chronic obstructive pulmonary disease with (acute) lower respiratory infection; E87.1 Hypo-osmolality and hyponatremia; J90 Pleural effusion, not elsewhere classified; C34.12 Malignant neoplasm of upper lobe, left bronchus or lung; C79.51 Secondary malignant neoplasm of bone; J94.2 Hemothorax; Z92.3 Personal history of irradiation; K80.20 Calculus of gallbladder without cholecystitis without obstruction; E86.0 Dehydration; G47.00 Insomnia, unspecified; D63.0 Anemia in neoplastic disease; Z51.5 Encounter for palliative care; Z87.891 Personal history of nicotine dependence; Z99.81 Dependence on supplemental oxygen
CPT/HCPCS: 36415; 71045; 74018; 74176; 74250; 80053; 83605; 83690; 83735; 84100; 84443; 84484; 85025; 87040; 87081; 87811; 92526; 92610; 93005; 93225; 96360; 99285; J0692; J1644; J2060; J2270; J2405; J2470; J2765; J3480; J7030; J7050; Q9963; A9270